=== PATIENT | female | born 1930 | race Caucasian/White ===

== ENCOUNTER 2016-02-25 12:25 | Emergency (ER) | payer MEDICARE ==
--- NOTE | 2016-02-25 13:39 | ER Document Report ---
ED GI Bleed / Rectal Pain - General Mode of Arrival: Ambulatory Information source: Patient TRAVEL OUTSIDE OF THE [place] IN LAST 30 DAYS: No - HPI Patient complains to provider of: Bright red bld from rect. Onset: Just prior to arrival Quality of pain: No pain Emesis description: Bright red blood Dark Stools: Maroon Similar symptoms previously: Yes - General Chief Complaint: Rectal Bleeding Stated Complaint: RECTAL BLEEDING Notes: Patient is an 85 year old female that presents to the emergency department today with complaints of rectal bleeding. According to the patient's son at bedside, the patient had a fall today while at "[employer]" and they noticed bright red blood on her shorts. Patient has had hemorrhoids in the past. Patient denies any dizziness or lightheadedness. (ROSAURA STRONG) - Related Data Allergies/Adverse Reactions: No Known Allergies Allergy (Unverified 05/24/12 22:11) Past Medical History - General Information source: Patient, [facility] Records Cannot obtain history due to: Dementia - Social History Smoking Status: Unknown if Ever Smoked Cigarette use (# per day): No Frequency of alcohol use: None Drug Abuse: None Lives with: Family Family History: Reviewed & Not Pertinent - Past Medical History Cardiac Medical History: Reports: Hx Hypercholesterolemia Musculoskeltal Medical History: Reports Hx Arthritis Psychiatric Medical History: Reports: Hx Depression Past Surgical History: Reports: Hx Orthopedic Surgery - Immunizations Hx Pneumococcal Vaccination: 02/15/11 Review of Systems - Review of Systems Constitutional: See HPI, Other - fall EENT: No symptoms reported Cardiovascular: No symptoms reported Respiratory: No symptoms reported Gastrointestinal: See HPI, Rectal bleeding Genitourinary: No symptoms reported Female Genitourinary: No symptoms reported Musculoskeletal: No symptoms reported Skin: No symptoms reported Hematologic/Lymphatic: No symptoms reported Neurological/Psychological: No symptoms reported -: Yes All other systems reviewed and negative Physical Exam - General General appearance: Appears well, Alert In distress: None - HEENT Head: Normocephalic, Atraumatic Eyes: Normal Conjunctiva: Normal Extraocular movements intact: Yes - Respiratory Respiratory status: No respiratory distress Chest status: Nontender Breath sounds: Normal - Cardiovascular Rhythm: Regular Heart sounds: Normal auscultation - Abdominal Inspection: Normal Distension: No distension - Rectal Tenderness: No Stool: Other - soft brown stool Hemorrhoids: Internal, External - with dried blood - Back Back: Normal, Nontender - Extremities General upper extremity: Normal inspection, Nontender. No: Edema General lower extremity: Normal inspection, Nontender. No: Edema - Neurological Neuro grossly intact: Yes Cognition: Other - pleasantly demented Speech: Normal - Skin Skin Temperature: Warm Skin Moisture: Dry Skin Color: Normal - Vital signs Vitals: Temp Pulse Resp BP Pulse Ox 98.4 F 110 H 20 114/62 94 02/25/16 13:00 02/25/16 13:00 02/25/16 13:00 02/25/16 13:00 02/25/16 13:00 (MEGAN SOTO) (ROSAURA STRONG) Course - Re-evaluation Re-evalutation: 02/25/16 13:42 The patient's son reports he works at the hospital in [place], and knows Dr. Kolb quite well and would prefer to follow up with him for the hemorrhoid. (MEGAN SOTO) - Vital Signs Vital signs: Temp Pulse Resp BP Pulse Ox 98.6 F 73 20 130/77 H 92 02/25/16 14:05 02/25/16 14:05 02/25/16 14:05 02/25/16 14:05 02/25/16 14:05 (MEGAN SOTO) (ROSAURA STRONG) Scribe Documentation - Scribe acting as scribe for :: Nawaf - Scribe Written by Scribe:: ROSAURA STRONG, LAITH 02/25/16 1215 (ROSAURA STRONG)
[2016-02-25 14:22] VITALS: BP 130/77
== END 2016-02-25 14:06 | disposition home or self-care (01) ==
LOC: ER 12:25
DX: S40.811A Abrasion of right upper arm, initial encounter (principal); W19.XXXA Unspecified fall, initial encounter; Y92.210 Daycare center as the place of occurrence of the external cause; K64.8 Other hemorrhoids; K64.4 Residual hemorrhoidal skin tags
CPT/HCPCS: 99283

== ENCOUNTER 2016-05-31 14:21 | Inpatient (IN) | payer MEDICARE ==
--- NOTE | 2016-05-31 14:39 | ER Document Report ---
ED Fall - General Chief Complaint: Fall Stated Complaint: FALL/HEAD PAIN Mode of Arrival: Medic Information source: Patient, Emergency Med Personnel Cannot obtain history due to: Dementia TRAVEL OUTSIDE OF THE [place] IN LAST 30 DAYS: No - HPI Occurred: Just prior to arrival Where: Other - UNCERTAIN Context: Fell from standing Associated symptoms: Dazed/confused - CONFUSION PROB. BASELINE. denies: Became dizzy/fainted Location of injury/pain: Head Severity: Mild Notes: Patient has history of dementia, therefore validity of her history is questionable. 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 - Related data Allergies/Adverse Reactions: No Known Allergies Allergy (Unverified 05/24/12 22:11) Past Medical History - General Information source: Patient, [facility] Records - Social History Smoking Status: Never Smoker Chew tobacco use (# tins/day): No Frequency of alcohol use: None Drug Abuse: None Lives with: Family Family History: Reviewed & Not Pertinent Patient has suicidal ideation: No Patient has homicidal ideation: No - Past Medical History Cardiac Medical History: Reports: Hx Hypercholesterolemia Denies: Hx Heart Attack, Hx Hypertension Pulmonary Medical History: Denies: Hx Asthma Neurological Medical History: Denies: Hx Cerebrovascular Accident, Hx Seizures GI Medical History: Denies: Hx Hepatitis, Hx Hiatal Hernia, Hx Ulcer Musculoskeltal Medical History: Reports Hx Arthritis Psychiatric Medical History: Reports: Hx Depression Infectious Medical History: Denies: Hx Hepatitis Past Surgical History: Reports: Hx Orthopedic Surgery. Denies: Hx Hysterectomy , Hx Mastectomy, Hx Open Heart Surgery, Hx Pacemaker - Immunizations Hx Pneumococcal Vaccination: 02/15/11 Review of Systems - Review of Systems Constitutional: No symptoms reported EENT: See HPI Cardiovascular: No symptoms reported Respiratory: No symptoms reported Gastrointestinal: No symptoms reported Female Genitourinary: Post menopausal Musculoskeletal: Other - R. THIGH DISCOMFORT Skin: No symptoms reported Neurological/Psychological: No symptoms reported Physical Exam - Vital signs Vitals: Temp Pulse Resp BP Pulse Ox 97.9 F 90 18 138/80 H 100 05/31/16 14:31 05/31/16 14:31 05/31/16 14:31 05/31/16 14:31 05/31/16 14:31 Interpretation: Normal - General General appearance: Appears well, Alert In distress: None - HEENT Head: Open wounds - R. PARIETAL SCALP LAC. (SEE GRAPHIC) Extraocular movements intact: Yes Ears: Normal Nasal: Normal Mouth/Lips: Normal Mucous membranes: Normal Pharynx: Normal Neck: Normal, Supple, Other - NO POSTERIOR TENDERNESS - Respiratory Respiratory status: No respiratory distress Breath sounds: Normal - Cardiovascular Rhythm: Regular Heart sounds: Normal auscultation Murmur: No - Abdominal Inspection: Normal Distension: No distension - Extremities General upper extremity: Normal inspection General lower extremity: Normal inspection - Neurological Neuro grossly intact: Yes Cognition: Confused Orientation: Disoriented to events - Psychological Associated symptoms: Normal affect, Normal mood - Skin Skin Temperature: Warm Skin Moisture: Dry Skin Color: Normal Skin Turgor: Elastic Skin irregularity: Laceration - SEE GRAPHIC Course - Re-evaluation Re-evalutation: 05/31/16 19:36 Diagnosis and possible treatment options were discussed at length with patient and patient's son, with other family members in attendance. Unfortunately, orthopedic surgery services are not available front desk monitor at [facility] today or tomorrow, therefore, if she were admitted here, surgical repair would be delayed. It was explained to patient and family that delayed repair would negatively impact the patient's postop recovery and rehabilitation. The option of seeking transfer to a different facility where the repair could be performed more quickly was discussed. Patient's family opts for admission here, understanding that the patient's prognosis and recovery potential is poor at best. - Vital Signs Vital signs: Temp Pulse Resp BP Pulse Ox 97.9 F 90 18 138/80 H 100 05/31/16 14:31 05/31/16 14:31 05/31/16 14:31 05/31/16 14:31 05/31/16 14:31 - Consults DR. CURIEL Consulted provider: will come to ER Procedures - Laceration/Wound Repair Right Head Time completed: 17:56 Wound length (cm): 2.2 Wound's Depth, Shape: Superficial Laceration pre-procedure: Sterile PPE donned Anesthetic type: 1% Lidocaine w/epi Volume Anesthetic (mLs): 2 Wound explored: Clean, No foreign body removed Irrigated w/ Saline (mLs): 30 Wound Debrided: Minimal Wound Repaired With: Elrod Number of Sutures: 2 Layer Closure?: No Post-procedure wound care: Sterile dressing applied Post-procedure NV exam normal: Yes - UNCHANGED FROM PREVIOUS Complications: No Adult Head Front/Back picture: 1 - 2.2 cm LAC, STAPLED Discharge - Discharge Clinical Impression: Fall at intermediate Qualifiers: Encounter type: initial encounter Qualified Code(s): W19.XXXA - Unspecified fall, initial encounter Scalp laceration Qualifiers: Encounter type: initial encounter Qualified Code(s): S01.01XA - Laceration without foreign body of scalp, initial encounter Hip fracture Qualifiers: Encounter type: initial encounter Fracture type: closed Laterality: right Qualified Code(s): S72.001A - Fracture of unspecified part of neck of right femur, initial encounter for closed fracture Condition: Stable Disposition: ADMITTED INPATIENT Admitting Provider: Hospitalist Unit Admitted: Telemetry
[2016-05-31] MEDS ORDERED: DIPH/PERTUSS(ACELL)/TETANUS VAC/PF 0.5 ML SYR (>=10YO) IM ONE (14:41)
[2016-05-31] MEDS ORDERED: LIDOCAINE 1%/EPINEPHRINE INJ 20 ML VIAL INJ ONE (14:43)
[2016-05-31] MEDS ORDERED: ACETAMINOPHEN 325 MG TABLET PO ONE (15:55)
[2016-05-31] MEDS ORDERED: IPRATROPIUM/ALBUTEROL 0.5-2.5 MG/3 ML AMPUL NEB PRN (19:53)
[2016-05-31] MEDS ORDERED: MAGNESIUM HYDROXIDE SUSP 30 ML UDCUP PO PRN (19:53)
[2016-05-31] MEDS ORDERED: ONDANSETRON HCL INJ/PF 4 MG/2 ML SDV IV PRN (19:53)
[2016-05-31] MEDS ORDERED: ACETAMINOPHEN 325 MG TABLET PO PRN (19:53)
[2016-05-31] MEDS ORDERED: MAG HYDROX/AL HYDROX/SIMETH SUSP 30 ML UDCUP PO PRN (19:53)
[2016-05-31 20:39] LABS: AMORPHOUS SEDIMENT,URINE TRACE /HPF; APPEARANCE,URINE SLIGHTLY-CLOUDY; BILIRUBIN,URINE NEGATIVE (NEGATIVE); GLUCOSE, URINE NEGATIVE (NEGATIVE); KETONES,URINE NEGATIVE (NEGATIVE); LEUKOCYTE ESTERASE,URINE SMALL (NEGATIVE); NITRITE,URINE POSITIVE (NEGATIVE); PROTEIN,URINE NEGATIVE (NEGATIVE); URINE SPECIFIC GRAVITY 1.012; UROBILINOGEN,URINE NEGATIVE mg/dL (<2.0)
[2016-05-31 21:01] LABS: ABSOLUTE LYMPHOCYTES (AUTO) 0.7 10^3/uL (0.5-4.7); ABSOLUTE MONOCYTES (AUTO) 0.8 10^3/uL (0.1-1.4); ABSOLUTE NEUT (AUTO) 12.5 10^3/uL (1.7-8.2); BASOPHILS % (AUTO) 0.1 % (0-2); HEMATOCRIT 39.7 % (36.0-47.0); HEMOGLOBIN 13.2 g/dL (12.0-15.5); HGB HCT DIFFERENCE -0.1; LYMPHOCYTES % (AUTO) 5.2 % (13-45); MEAN CORPUSCULAR HEMOGLOBIN 30.1 pg (27.0-33.4); MEAN CORPUSCULAR HGB CONC 33.3 g/dL (32.0-36.0); MEAN CORPUSCULAR VOLUME 90 fl (80-97); MONOCYTES % (AUTO) 5.9 % (3-13); RED CELL DISTRIBUTION WIDTH 13.4 % (11.5-14.0); SEGMENTED NEUTROPHILS % (AUTO) 88.8 % (42-78)
[2016-05-31 21:17] LABS: ALANINE AMINOTRANSFERASE 32 U/L (9-52); ALBUMIN 3.8 g/dL (3.5-5.0); ALKALINE PHOSPHATASE 95 U/L (38-126); ANION GAP 12 (5-19); ASPARTATE AMINO TRANSFERASE 30 U/L (14-36); BLOOD UREA NITROGEN 16 mg/dL (7-20); CALCIUM 8.9 mg/dL (8.4-10.2); CARBON DIOXIDE 22 mmol/L (22-30); CHLORIDE 107 mmol/L (98-107); CREATININE RESULT 0.64 mg/dL (0.52-1.25); GLUCOSE 119 mg/dL (75-110); POTASSIUM 3.8 mmol/L (3.6-5.0); SODIUM 141.1 mmol/L (137-145); TOTAL PROTEIN 6.4 g/dL (6.3-8.2)
[2016-05-31 21:36] LABS: CREATINE KINASE MB 2.2 ng/mL (<4.55); TROPONIN I 0.013 ng/mL
[2016-05-31] MEDS ORDERED: RISPERIDONE 0.5 MG TAB.RAPDIS PO ONE (23:56)
[2016-06-01] MEDS: ATORVASTATIN CALCIUM 40 MG TABLET PO SCH (01:55)
[2016-06-01 03:37] LABS: ABSOLUTE LYMPHOCYTES (AUTO) 1.5 10^3/uL (0.5-4.7); ABSOLUTE MONOCYTES (AUTO) 1.1 10^3/uL (0.1-1.4); ABSOLUTE NEUT (AUTO) 9.3 10^3/uL (1.7-8.2); BASOPHILS % (AUTO) 0.2 % (0-2); EOSINOPHILS % (AUTO) 0.2 % (0-6); HEMATOCRIT 37.4 % (36.0-47.0); HEMOGLOBIN 12.8 g/dL (12.0-15.5); LYMPHOCYTES % (AUTO) 12.7 % (13-45); MEAN CORPUSCULAR HEMOGLOBIN 30.7 pg (27.0-33.4); MEAN CORPUSCULAR HGB CONC 34.2 g/dL (32.0-36.0); MEAN CORPUSCULAR VOLUME 90 fl (80-97); MONOCYTES % (AUTO) 8.9 % (3-13); RED BLOOD COUNT 4.17 10^6/uL (3.72-5.28); RED CELL DISTRIBUTION WIDTH 13.3 % (11.5-14.0)
[2016-06-01] MEDS: HEPARIN SOD (PORCINE) 5,000 UNIT/ML 1 ML SYRINGE SUBCUT SCH ×3 (03:50→14:29)
[2016-06-01 04:03] LABS: ANION GAP 11 (5-19); BLOOD UREA NITROGEN 16 mg/dL (7-20); CALCIUM 8.8 mg/dL (8.4-10.2); CARBON DIOXIDE 24 mmol/L (22-30); CHLORIDE 107 mmol/L (98-107); CREATINE KINASE 283 U/L (30-135); CREATININE RESULT 0.73 mg/dL (0.52-1.25); GLUCOSE 116 mg/dL (75-110); POTASSIUM 3.7 mmol/L (3.6-5.0); SODIUM 142.2 mmol/L (137-145)
[2016-06-01 04:15] LABS: CREATINE KINASE MB 2.94 ng/mL (<4.55)
[2016-06-01 04:17] LABS: TROPONIN I < 0.012 ng/mL
--- NOTE | 2016-06-01 05:26 | PDOC H&P ---
History of Present Illness Admission Date/PCP: 05/31/16 20:02 RONAN KELLY MD Patient complains of: Right-sided hip pain History of Present Illness: MARIAM THEODORE is a 85 year old female with a past medical history of hypertension, dementia and gait disorder requiring a walker. She is a long- term senior living resident found by senior living staff to be on the floor with a laceration to her posterior right scalp and pain to her right hip. No evidence for loss of consciousness or seizure or other injury she is not known to take any new medications. Her son is at bedside name to provide some history stating she falls at least once a month as she is unable to recall the need for a walker. Patient is awake alert oriented 1 in no acute distress. In the emergency room found to have a 1 x 2 cm laceration to the right scalp which has been stapled, she is also found to have a right-sided hip fracture and referred to the hospitalist for admission. Patient's son is aware of the fact that the facility does not have orthopedic surgery services until June 03 and declines transfer to tertiary care. Past Medical History Cardiac Medical History: Reports: Hyperlipidema Denies: Myocardial Infarction, Hypertension Pulmonary Medical History: Denies: Asthma Neurological Medical History: Denies: Seizures GI Medical History: Denies: Hepatitis, Hiatal Hernia Musculoskeltal Medical History: Reports: Arthritis Psychiatric Medical History: Reports: Depression - anxiety Hematology: Denies: Anemia, Sickle Cell Disease Past Surgical History Past Surgical History: Reports: Orthopedic Surgery Denies: Amputation, Hysterectomy, Mastectomy, Pacemaker Social History Information Source: Relative, [facility] Records Lives with: Family Smoking Status: Never Smoker Drugs: None - Advance Directive Resuscitation Status: Full Code Family History Family History: Hypertension Parental Family History Reviewed: Yes Children Family History Reviewed: Yes Sibling(s) Family History Reviewed.: Yes Medication/Allergy Home Medications: Acetaminophen [Tylenol 325 mg Tablet] 325 mg PO Q4HP PRN 06/01/16 Alendronate Sodium [Alendronate Sodium] 70 mg PO Q7D 06/01/16 Aspirin [Aspirin 81 mg Chewable Tablet] 1 tab PO DAILY 06/01/16 Calcium Carbonate/Vitamin D3 [Calcium 600 + Vit D Tablet] 1 tab PO DAILY Guaifenesin [Guaifenesin] 2 tsp PO Q4H PRN MDD 6 per 24 hours 06/01/16 Hydrocortisone Acetate [Proctocort] 30 mg WA BID PRN 06/01/16 Loperamide HCl [Imodium A-D] 2 tab PO ASDIR PRN MDD 4 doses per 24 hours Melatonin/Pyridoxine HCl (B6) [Melatonin 5 mg Tablet] 1 each PO QHS 06/01/16 Memantine HCl [Namenda Xr] 1 cap PO DAILY 06/01/16 Mirtazapine [Mirtazapine] 15 mg PO QHS 06/01/16 Multivits-Min/Iron/FA/Lutein [Centrum Silver Women Tablet] 1 tab PO DAILY Quetiapine Fumarate [Quetiapine Fumarate] 1 tab PO QAM 06/01/16 Quetiapine Fumarate [Quetiapine Fumarate] 1 tab PO QHS 06/01/16 Allergies/Adverse Reactions: No Known Allergies Allergy (Unverified 05/24/12 22:11) Review of Systems ROS unobtainable: Due to mental status Physical Exam Vital Signs: Temp Pulse Resp BP Pulse Ox 97.2 F 107 H 16 163/81 H 94 06/01/16 04:08 06/01/16 04:08 06/01/16 04:08 06/01/16 04:08 06/01/16 04:08 Intake & Output 05/30/16 05/31/16 06/01/16 11:59 11:59 11:59 Intake Total 300 Output Total 700 Balance -400 General appearance: PRESENT: no acute distress, cooperative Head exam: PRESENT: other - 1 x 2 cm laceration with stapling closure to the right occipital area Eye exam: PRESENT: conjunctiva pink, EOMI, PERRLA. ABSENT: scleral icterus Ear exam: PRESENT: normal external ear exam Mouth exam: PRESENT: moist, tongue midline Neck exam: ABSENT: carotid bruit, JVD, lymphadenopathy, thyromegaly Respiratory exam: PRESENT: clear to auscultation stanley. ABSENT: rales, rhonchi, wheezes Cardiovascular exam: PRESENT: RRR. ABSENT: diastolic murmur, rubs, systolic murmur Pulses: PRESENT: normal dorsalis pedis pul Vascular exam: PRESENT: normal capillary refill GI/Abdominal exam: PRESENT: normal bowel sounds, soft. ABSENT: distended, guarding, mass, organolmegaly, rebound, tenderness Rectal exam: PRESENT: deferred Gentrourinary exam: PRESENT: other Extremities exam: PRESENT: tenderness. ABSENT: calf tenderness, clubbing, full ROM, pedal edema, +1 edema, +2 edema Musculoskeletal exam: PRESENT: deformity. ABSENT: full ROM Neurological exam: PRESENT: alert, awake, oriented to person, CN II-XII grossly intact Psychiatric exam: PRESENT: appropriate affect, normal mood. ABSENT: homicidal ideation, suicidal ideation Skin exam: PRESENT: dry, intact, warm. ABSENT: cyanosis, rash Results Laboratory Results: 06/01/16 03:11 06/01/16 03:11 05/31/16 05/31/16 06/01/16 20:40 20:40 03:11 WBC 14.0 H 12.0 H RBC 4.40 4.17 Hgb 13.2 12.8 Hct 39.7 37.4 MCV 90 90 MCH 30.1 30.7 MCHC 33.3 34.2 RDW 13.4 13.3 Plt Count 237 221 Seg Neutrophils % 88.8 H 78.0 Lymphocytes % 5.2 L 12.7 L Monocytes % 5.9 8.9 Eosinophils % 0.0 0.2 Basophils % 0.1 0.2 Absolute Neutrophils 12.5 H 9.3 H Absolute Lymphocytes 0.7 1.5 Absolute Monocytes 0.8 1.1 Absolute Eosinophils 0.0 0.0 Absolute Basophils 0.0 0.0 Sodium 141.1 Potassium 3.8 Chloride 107 Carbon Dioxide 22 Anion Gap 12 BUN 16 Creatinine 0.64 Est GFR ( Amer) > 60 Est GFR (Non-Af Amer) > 60 Glucose 119 H Calcium 8.9 Total Bilirubin 1.0 AST 30 ALT 32 Alkaline Phosphatase 95 Total Protein 6.4 Albumin 3.8 06/01/16 03:11 WBC RBC Hgb Hct MCV MCH MCHC RDW Plt Count Seg Neutrophils % Lymphocytes % Monocytes % Eosinophils % Basophils % Absolute Neutrophils Absolute Lymphocytes Absolute Monocytes Absolute Eosinophils Absolute Basophils Sodium 142.2 Potassium 3.7 Chloride 107 Carbon Dioxide 24 Anion Gap 11 BUN 16 Creatinine 0.73 Est GFR ( Amer) > 60 Est GFR (Non-Af Amer) > 60 Glucose 116 H Calcium 8.8 Total Bilirubin AST ALT Alkaline Phosphatase Total Protein Albumin 05/31/16 05/31/16 06/01/16 20:40 20:40 03:11 Creatine Kinase 222 H CK-MB (CK-2) 2.20 2.94 Troponin I 0.013 < 0.012 06/01/16 03:11 Creatine Kinase 283 H CK-MB (CK-2) Troponin I Impressions: Cervical Spine CT 05/31/16 14:40 IMPRESSION: CHRONIC DEGENERATIVE CHANGES. NO ACUTE FINDINGS. Head CT 05/31/16 14:40 IMPRESSION: CHRONIC CHANGES OF ATROPHY AND MICROVASCULAR ISCHEMIA. NO ACUTE PROCESS. Hip/Pelvis X-Ray 05/31/16 18:02 IMPRESSION: Acute intertrochanteric fracture of the right femur. Chest X-Ray 05/31/16 18:20 IMPRESSION: NO ACUTE RADIOGRAPHIC FINDING IN THE CHEST. Assessment & Plan - Diagnosis (1) Hip fracture Qualifiers: Encounter type: initial encounter Fracture type: closed Laterality : right Qualified Code(s): S72.001A - Fracture of unspecified part of neck of right femur, initial encounter for closed fracture Is this a current diagnosis for this admission?: YesPlan: Patient sustaining a mechanical fall with baseline gait disorder and dementia. No history of underlying decompensated cardiopulmonary disease delaying surgery. Orthopedic consult pending continue symptomatically management (2) Hypertension Is this a current diagnosis for this admission?: YesPlan: Continue home regiment with when necessary MACKENZIE inhibitor (3) Dementia Is this a current diagnosis for this admission?: YesPlan: Patient unlikely to benefit from physical therapy patient is also known to have sundowning and will continue her home regiment with when necessary benzodiazepine (4) Leukocytosis Is this a current diagnosis for this admission?: YesPlan: Likely a stress response to fall and injury no evidence of occult infection reevaluation with CBC ordered (5) Scalp laceration Qualifiers: Encounter type: initial encounter Qualified Code(s): S01.01XA - Laceration without foreign body of scalp, initial encounter Is this a current diagnosis for this admission?: YesPlan: No evidence of foreign body or complication reevaluation in 7-10 days - Time Time Spent: 50 to 70 Minutes - Inpatient Certification Medical Necessity: Need Close Monitoring Due to Risk of Patient Decompensation
[2016-06-01] MEDS: DOCUSATE SODIUM 100 MG CAPSULE PO SCH ×2 (11:37→17:06)
[2016-06-01 11:42] LABS: CREATINE KINASE MB 4.02 ng/mL (<4.55); TROPONIN I 0.015 ng/mL
--- NOTE | 2016-06-01 13:29 | PDOC PROGRESS REPORT ---
Subjective Progress Note for:: 06/01/16 Subjective:: He is confused but denies any complaints or pain. Physical Exam Vital Signs: Temp Pulse Resp BP Pulse Ox 97.6 F 104 H 16 161/89 H 94 06/01/16 08:00 06/01/16 09:01 06/01/16 09:01 06/01/16 08:00 06/01/16 09:01 Intake & Output 05/31/16 06/01/16 06/02/16 06:59 06:59 06:59 Intake Total 406 200 Output Total 1200 0 Balance -794 200 Weight 50.8 kg 50.8 kg General appearance: PRESENT: no acute distress Eye exam: PRESENT: conjunctiva pink. ABSENT: scleral icterus Mouth exam: PRESENT: moist, tongue midline Neck exam: ABSENT: JVD Respiratory exam: PRESENT: clear to auscultation stanley. ABSENT: rales, rhonchi, wheezes Cardiovascular exam: PRESENT: RRR. ABSENT: diastolic murmur, rubs, systolic murmur GI/Abdominal exam: PRESENT: normal bowel sounds, soft. ABSENT: distended, guarding, mass, organolmegaly, rebound, tenderness Extremities exam: ABSENT: calf tenderness, clubbing, pedal edema Neurological exam: PRESENT: alert, awake, oriented to person, oriented to place. ABSENT: oriented to time, oriented to situation Psychiatric exam: PRESENT: appropriate affect Results Laboratory Results: 06/01/16 03:11 06/01/16 03:11 05/31/16 05/31/16 06/01/16 20:40 20:40 03:11 WBC 14.0 H 12.0 H RBC 4.40 4.17 Hgb 13.2 12.8 Hct 39.7 37.4 MCV 90 90 MCH 30.1 30.7 MCHC 33.3 34.2 RDW 13.4 13.3 Plt Count 237 221 Seg Neutrophils % 88.8 H 78.0 Lymphocytes % 5.2 L 12.7 L Monocytes % 5.9 8.9 Eosinophils % 0.0 0.2 Basophils % 0.1 0.2 Absolute Neutrophils 12.5 H 9.3 H Absolute Lymphocytes 0.7 1.5 Absolute Monocytes 0.8 1.1 Absolute Eosinophils 0.0 0.0 Absolute Basophils 0.0 0.0 Sodium 141.1 Potassium 3.8 Chloride 107 Carbon Dioxide 22 Anion Gap 12 BUN 16 Creatinine 0.64 Est GFR ( Amer) > 60 Est GFR (Non-Af Amer) > 60 Glucose 119 H Calcium 8.9 Total Bilirubin 1.0 AST 30 ALT 32 Alkaline Phosphatase 95 Total Protein 6.4 Albumin 3.8 06/01/16 03:11 WBC RBC Hgb Hct MCV MCH MCHC RDW Plt Count Seg Neutrophils % Lymphocytes % Monocytes % Eosinophils % Basophils % Absolute Neutrophils Absolute Lymphocytes Absolute Monocytes Absolute Eosinophils Absolute Basophils Sodium 142.2 Potassium 3.7 Chloride 107 Carbon Dioxide 24 Anion Gap 11 BUN 16 Creatinine 0.73 Est GFR ( Amer) > 60 Est GFR (Non-Af Amer) > 60 Glucose 116 H Calcium 8.8 Total Bilirubin AST ALT Alkaline Phosphatase Total Protein Albumin 05/31/16 05/31/16 06/01/16 20:40 20:40 03:11 Creatine Kinase 222 H CK-MB (CK-2) 2.20 2.94 Troponin I 0.013 < 0.012 06/01/16 06/01/16 06/01/16 03:11 09:48 09:48 Creatine Kinase 283 H 410 H CK-MB (CK-2) 4.02 Troponin I 0.015 Impressions: Cervical Spine CT 05/31/16 14:40 IMPRESSION: CHRONIC DEGENERATIVE CHANGES. NO ACUTE FINDINGS. Head CT 05/31/16 14:40 IMPRESSION: CHRONIC CHANGES OF ATROPHY AND MICROVASCULAR ISCHEMIA. NO ACUTE PROCESS. Hip/Pelvis X-Ray 05/31/16 18:02 IMPRESSION: Acute intertrochanteric fracture of the right femur. Chest X-Ray 05/31/16 18:20 IMPRESSION: NO ACUTE RADIOGRAPHIC FINDING IN THE CHEST. Assessment & Plan - Diagnosis (1) Hip fracture Qualifiers: Encounter type: initial encounter Fracture type: closed Laterality : right Qualified Code(s): S72.001A - Fracture of unspecified part of neck of right femur, initial encounter for closed fracture Is this a current diagnosis for this admission?: YesPlan: Patient will have surgical repair with orthopedics is available. (2) Dementia Is this a current diagnosis for this admission?: YesPlan: Patient is pleasantly demented. (3) Hypertension Is this a current diagnosis for this admission?: YesPlan: Patient's blood pressure is elevated today we will continue to monitor and if it remains elevated restart her blood pressure medications (4) Leukocytosis Is this a current diagnosis for this admission?: YesPlan: Most likely stress reaction. Patient has no evidence for infection. (5) Scalp laceration Qualifiers: Encounter type: initial encounter Qualified Code(s): S01.01XA - Laceration without foreign body of scalp, initial encounter Is this a current diagnosis for this admission?: Yes - Time Time Spent with patient: 25-34 minutes - Inpatient Certification Medical Necessity: Need for Surgery - Plan Summary Plan Summary: Orthopedic surgery is currently not available at this facility. Patient will to have hip surgery when surgery is available.
[2016-06-01] MEDS: SERTRALINE HCL 50 MG TABLET PO SCH ×2 (16:37→17:06)
[2016-06-01] MEDS: BUSPIRONE HCL 10 MG TABLET PO SCH ×2 (16:37→17:06)
[2016-06-02] MEDS: ATORVASTATIN CALCIUM 40 MG TABLET PO SCH ×2 (00:01→22:34)
[2016-06-02] MEDS: HEPARIN SOD (PORCINE) 5,000 UNIT/ML 1 ML SYRINGE SUBCUT SCH ×4 (00:01→22:34)
[2016-06-02 05:37] LABS: ANION GAP 12 (5-19); BLOOD UREA NITROGEN 16 mg/dL (7-20); CALCIUM 8.6 mg/dL (8.4-10.2); CARBON DIOXIDE 21 mmol/L (22-30); CHLORIDE 106 mmol/L (98-107); CREATININE RESULT 0.68 mg/dL (0.52-1.25); GLUCOSE 125 mg/dL (75-110); POTASSIUM 3.8 mmol/L (3.6-5.0); SODIUM 138.9 mmol/L (137-145)
[2016-06-02 06:41] LABS: ABSOLUTE LYMPHOCYTES (AUTO) 1.2 10^3/uL (0.5-4.7); ABSOLUTE NEUT (AUTO) 12.7 10^3/uL (1.7-8.2); BASOPHILS % (AUTO) 0.1 % (0-2); HEMATOCRIT 38.3 % (36.0-47.0); HEMOGLOBIN 12.8 g/dL (12.0-15.5); HGB HCT DIFFERENCE 0.1; LYMPHOCYTES % (AUTO) 8.4 % (13-45); MEAN CORPUSCULAR HEMOGLOBIN 30.2 pg (27.0-33.4); MEAN CORPUSCULAR HGB CONC 33.5 g/dL (32.0-36.0); MEAN CORPUSCULAR VOLUME 90 fl (80-97); MONOCYTES % (AUTO) 6.4 % (3-13); RED BLOOD COUNT 4.24 10^6/uL (3.72-5.28); RED CELL DISTRIBUTION WIDTH 13.4 % (11.5-14.0); SEGMENTED NEUTROPHILS % (AUTO) 85.1 % (42-78); WHITE BLOOD COUNT 14.9 10^3/uL (4.0-10.5)
[2016-06-02] MEDS: SERTRALINE HCL 50 MG TABLET PO SCH ×2 (10:41→18:24)
[2016-06-02] MEDS: DOCUSATE SODIUM 100 MG CAPSULE PO SCH ×2 (10:42→18:25)
[2016-06-02] MEDS: BUSPIRONE HCL 10 MG TABLET PO SCH ×2 (10:42→18:25)
[2016-06-02] MEDS ORDERED: HYDRALAZINE HCL INJ/PF 20 MG/1 ML SDV IV PRN (11:21)
--- NOTE | 2016-06-02 11:22 | PDOC PROGRESS REPORT ---
Subjective Progress Note for:: 06/02/16 Subjective:: Patient has no complaints of pain. When I specifically asked she denies pain. She denies chest pain or shortness of breath. Review of systems and history are limited by advanced dementia. Physical Exam Vital Signs: Temp Pulse Resp BP Pulse Ox 98 F 96 17 114/69 92 06/02/16 00:00 06/02/16 00:00 06/02/16 00:00 06/02/16 08:00 06/02/16 00:00 Intake & Output 06/01/16 06/02/16 06/03/16 06:59 06:59 06:59 Intake Total 406 822 Output Total 1200 700 Balance -794 122 Weight 50.8 kg 50.8 kg GENERAL: No acute distress HEENT: Conjunctiva clear, nonicteric, moist mucous membranes, no JVD, midline trachea RESPIRATORY: Clear to auscultation bilaterally, no wheezes, no rhonchi CARDIAC: Regular rate and rhythm, no murmurs/gallops/rubs ABDOMEN: Soft, nondistended, nontender, positive bowel sounds, no rebound, no guarding EXTREMETIES: No edema, cyanosis, clubbing NEUROLOGIC: Alert, oriented to person only, CN's grossly intact, no focal deficits SKIN: No rash, wounds PSYCH: Normal mood, normal affect Results Laboratory Results: 06/02/16 04:14 06/02/16 04:14 06/02/16 06/02/16 04:14 04:14 WBC 14.9 H RBC 4.24 Hgb 12.8 Hct 38.3 MCV 90 MCH 30.2 MCHC 33.5 RDW 13.4 Plt Count 214 Seg Neutrophils % 85.1 H Lymphocytes % 8.4 L Monocytes % 6.4 Eosinophils % 0.0 Basophils % 0.1 Absolute Neutrophils 12.7 H Absolute Lymphocytes 1.2 Absolute Monocytes 1.0 Absolute Eosinophils 0.0 Absolute Basophils 0.0 Sodium 138.9 Potassium 3.8 Chloride 106 Carbon Dioxide 21 L Anion Gap 12 BUN 16 Creatinine 0.68 Est GFR ( Amer) > 60 Est GFR (Non-Af Amer) > 60 Glucose 125 H Calcium 8.6 05/31/16 05/31/16 06/01/16 20:40 20:40 03:11 Creatine Kinase 222 H CK-MB (CK-2) 2.20 2.94 Troponin I 0.013 < 0.012 06/01/16 06/01/16 06/01/16 03:11 09:48 09:48 Creatine Kinase 283 H 410 H CK-MB (CK-2) 4.02 Troponin I 0.015 Impressions: Cervical Spine CT 05/31/16 14:40 IMPRESSION: CHRONIC DEGENERATIVE CHANGES. NO ACUTE FINDINGS. Head CT 05/31/16 14:40 IMPRESSION: CHRONIC CHANGES OF ATROPHY AND MICROVASCULAR ISCHEMIA. NO ACUTE PROCESS. Hip/Pelvis X-Ray 05/31/16 18:02 IMPRESSION: Acute intertrochanteric fracture of the right femur. Chest X-Ray 05/31/16 18:20 IMPRESSION: NO ACUTE RADIOGRAPHIC FINDING IN THE CHEST. Assessment & Plan - Diagnosis (1) Hip fracture Qualifiers: Encounter type: initial encounter Fracture type: closed Laterality : right Qualified Code(s): S72.001A - Fracture of unspecified part of neck of right femur, initial encounter for closed fracture Is this a current diagnosis for this admission?: YesPlan: Dr. Cagle of orthopedics consultation. Check coags in EKG preoperatively. Chest x-ray shows no acute process. (2) Dementia Is this a current diagnosis for this admission?: YesPlan: Continue supportive care. Patient resides at senior living facility at baseline. (3) Hypertension Is this a current diagnosis for this admission?: YesPlan: When necessary IV hydralazine for now. (4) Scalp laceration Qualifiers: Encounter type: initial encounter Qualified Code(s): S01.01XA - Laceration without foreign body of scalp, initial encounter Is this a current diagnosis for this admission?: YesPlan: Approximated with rashel on 05/21/2016. Patient will need staple removal on . - Time Time Spent with patient: 25-34 minutes
[2016-06-02 11:43] LABS: PROTHROMBIN TIME 13.3 SEC (11.4-15.4)
[2016-06-02 11:44] LABS: PARTIAL THROMBOPLASTIN TIME 26.7 SEC (23.5-35.8)
--- NOTE | 2016-06-02 13:25 | EKG REPORT ---
SEVERITY:- NORMAL ECG - SINUS RHYTHM : Confirmed by: Moriah Helm MD 02-Jun-2016 13:25:00
--- NOTE | 2016-06-02 15:32 | PDOC CONSULTATION ---
Consultation Consult Date: 06/02/16 Consult reason:: Right intertrochanteric hip fracture History of Present Illness Admission Date/PCP: 05/31/16 19:54 RONAN KELLY MD Patient complains of: Right hip pain History of Present Illness: 85-year-old female with dementia who ambulates with a rolling walker. She suffered a fall on 05/31/2016 while trying to go to the bathroom. She merely fell onto her right side and complain of right hip pain and was unable to ambulate. Patient was brought to the hospital and diagnosed with right intertrochanteric hip fracture. Patient family did not want her transferred to a tertiary center therefore patient waited 2 days before orthopedic could be consulted. During her hospital stay she had a laceration in her head which was cleaned and stapled. The dementia is baseline. She has history of small stroke. Denies any other extremity pain swelling numbness or tingling. Due to her dementia muscle information was provided by her daughter who is the power of deputy prosecuting attorney. She states she has history of a hip fracture on the left side that was fixed by Dr. Linda. Past Medical History Cardiac Medical History: Reports: Hyperlipidema Denies: Myocardial Infarction, Hypertension Pulmonary Medical History: Denies: Asthma Neurological Medical History: Denies: Seizures GI Medical History: Denies: Hepatitis, Hiatal Hernia Musculoskeltal Medical History: Reports: Arthritis Psychiatric Medical History: Reports: Depression - anxiety Hematology: Denies: Anemia, Sickle Cell Disease Past Surgical History Past Surgical History: Reports: Orthopedic Surgery - Intramedullary nailing of the left hip Fracture Denies: Amputation, Hysterectomy, Mastectomy, Pacemaker Social History Lives with: Family Smoking Status: Never Smoker Drugs: None - Advance Directive Resuscitation Status: Full Code Family History Family History: Hypertension Parental Family History Reviewed: No Children Family History Reviewed: Yes Sibling(s) Family History Reviewed.: No Medication/Allergy Home Medications: Acetaminophen [Tylenol 325 mg Tablet] 650 mg PO Q4HP PRN 06/01/16 Alendronate Sodium [Fosamax 70 mg Tablet] 70 mg PO FR@1000 06/01/16 Aspirin [Aspirin 81 mg Chewable Tablet] 81 mg PO DAILY 06/01/16 Docusate Sodium [Colace 100 mg Capsule] 100 mg PO DAILY 06/01/16 Guaifenesin [Robitussin Syrup 200 mg/10 ml Ud Cup] 200 mg PO Q4HP PRN 06/01/16 Hydrocortisone Acetate [Proctocort] 30 mg MO BIDP PRN 06/01/16 Loperamide HCl [Imodium 2 mg Capsule] 4 cap PO DAILYP PRN 06/01/16 Melatonin 5 mg PO QHS 06/01/16 Memantine HCl [Namenda Xr] 14 mg PO DAILY 06/01/16 Mirtazapine [Remeron 15 mg Tablet] 15 mg PO QHS 06/01/16 Multivitamin/Iron/Folic Acid [Cerovite Advanced Form Tab] 1 tab PO DAILY Quetiapine Fumarate [Seroquel 25 mg Tablet] 25 mg PO QAM 06/01/16 Quetiapine Fumarate [Seroquel] 50 mg PO QHS 06/01/16 Allergies/Adverse Reactions: No Known Allergies Allergy (Unverified 05/24/12 22:11) Review of Systems ROS unobtainable: Due to mental status - Patient has baseline dementia Physical Exam Vital Signs: Temp Pulse Resp BP Pulse Ox 36.4 C 105 H 16 142/72 H 93 06/02/16 11:23 06/02/16 14:17 06/02/16 14:17 06/02/16 11:23 06/02/16 14:17 Intake & Output 06/01/16 06/02/16 06/03/16 06:59 06:59 06:59 Intake Total 406 822 120 Output Total 1200 700 Balance -794 122 120 Weight 50.8 kg 50.8 kg General appearance: PRESENT: no acute distress, thin Head exam: PRESENT: other - [place] and had over laceration from fall. Eye exam: PRESENT: EOMI. ABSENT: nystagmus Neck exam: ABSENT: tenderness, thyromegaly Respiratory exam: PRESENT: symmetrical, unlabored Vascular exam: PRESENT: normal capillary refill GI/Abdominal exam: ABSENT: distended, guarding, tenderness Musculoskeletal exam: PRESENT: deformity - Short right lower extremity compared to the left side, tenderness - Over right hip and groin.. ABSENT: dislocation Neurological exam: PRESENT: awake, oriented to person. ABSENT: oriented to place, oriented to time, oriented to situation Psychiatric exam: PRESENT: appropriate affect, normal mood Skin exam: PRESENT: intact, normal color. ABSENT: abrasion, erythema, rash Adult Front & Back Image: 1 - Neurovascular intact distally. Shorten extremity. Pain with any attempted range of motion. Tender to palpation over the right greater trochanter and over the right groin. Results Laboratory Results: 06/02/16 04:14 06/02/16 04:14 06/02/16 06/02/16 04:14 04:14 WBC 14.9 H RBC 4.24 Hgb 12.8 Hct 38.3 MCV 90 MCH 30.2 MCHC 33.5 RDW 13.4 Plt Count 214 Seg Neutrophils % 85.1 H Lymphocytes % 8.4 L Monocytes % 6.4 Eosinophils % 0.0 Basophils % 0.1 Absolute Neutrophils 12.7 H Absolute Lymphocytes 1.2 Absolute Monocytes 1.0 Absolute Eosinophils 0.0 Absolute Basophils 0.0 Sodium 138.9 Potassium 3.8 Chloride 106 Carbon Dioxide 21 L Anion Gap 12 BUN 16 Creatinine 0.68 Est GFR ( Amer) > 60 Est GFR (Non-Af Amer) > 60 Glucose 125 H Calcium 8.6 05/31/16 05/31/16 06/01/16 20:40 20:40 03:11 Creatine Kinase 222 H CK-MB (CK-2) 2.20 2.94 Troponin I 0.013 < 0.012 06/01/16 06/01/16 06/01/16 03:11 09:48 09:48 Creatine Kinase 283 H 410 H CK-MB (CK-2) 4.02 Troponin I 0.015 Impressions: Cervical Spine CT 05/31/16 14:40 IMPRESSION: CHRONIC DEGENERATIVE CHANGES. NO ACUTE FINDINGS. Head CT 05/31/16 14:40 IMPRESSION: CHRONIC CHANGES OF ATROPHY AND MICROVASCULAR ISCHEMIA. NO ACUTE PROCESS. Hip/Pelvis X-Ray 05/31/16 18:02 IMPRESSION: Acute intertrochanteric fracture of the right femur. Chest X-Ray 05/31/16 18:20 IMPRESSION: NO ACUTE RADIOGRAPHIC FINDING IN THE CHEST. Assessment & Plan - Diagnosis (1) Displaced intertrochanteric fracture of right femur, initial encounter for closed fracture Qualifiers: Encounter type: subsequent encounter Fracture healing: with routine healing Qualified Code(s): S72.141D - Displaced intertrochanteric fracture of right femur, subsequent encounter for closed fracture with routine healing Is this a current diagnosis for this admission?: YesPlan: Patient is not nothing by mouth at the moment. Discussed the pros and cons of proceeding with Cephalo-medullary nailing of the right intertrochanteric hip fracture. The daughter who is the power of deputy prosecuting attorney is here present. She has undergone same procedure for the left side a few years back so she is well aware of the risk and benefits and agreed to consent to proceed with surgery. In the meantime continue pain control and bed rest. Patient will be placed nothing by mouth after midnight and start IV fluids after midnight. Patient's heparin will be held after last dose at [address] Luque who has medically cleared her. Plan to proceed with surgery tomorrow
[2016-06-02] MEDS ORDERED: DEXTROSE 5%-LACTATED RINGERS 1,000 ML IV PRN (15:45)
[2016-06-03 06:05] LABS: ABSOLUTE BASOPHILS # (AUTO) 0.1 10^3/uL (0.0-0.2); ABSOLUTE LYMPHOCYTES (AUTO) 1.6 10^3/uL (0.5-4.7); ABSOLUTE MONOCYTES (AUTO) 1.2 10^3/uL (0.1-1.4); ABSOLUTE NEUT (AUTO) 11.8 10^3/uL (1.7-8.2); BASOPHILS % (AUTO) 0.5 % (0-2); EOSINOPHILS % (AUTO) 0.3 % (0-6); HEMOGLOBIN 12.1 g/dL (12.0-15.5); HGB HCT DIFFERENCE 0.3; LYMPHOCYTES % (AUTO) 11.1 % (13-45); MEAN CORPUSCULAR HGB CONC 33.6 g/dL (32.0-36.0); MEAN CORPUSCULAR VOLUME 89 fl (80-97); MONOCYTES % (AUTO) 8.3 % (3-13); RED BLOOD COUNT 4.03 10^6/uL (3.72-5.28); RED CELL DISTRIBUTION WIDTH 13.3 % (11.5-14.0); SEGMENTED NEUTROPHILS % (AUTO) 79.8 % (42-78); WHITE BLOOD COUNT 14.8 10^3/uL (4.0-10.5)
[2016-06-03 06:25] LABS: ANION GAP 8 (5-19); BLOOD UREA NITROGEN 18 mg/dL (7-20); CALCIUM 8.7 mg/dL (8.4-10.2); CARBON DIOXIDE 26 mmol/L (22-30); CHLORIDE 105 mmol/L (98-107); CREATININE RESULT 0.61 mg/dL (0.52-1.25); GLUCOSE 112 mg/dL (75-110); POTASSIUM 3.9 mmol/L (3.6-5.0); SODIUM 139.2 mmol/L (137-145)
[2016-06-03] MEDS ORDERED: ONDANSETRON HCL INJ/PF 4 MG/2 ML SDV ONE (07:49)
[2016-06-03] MEDS ORDERED: DEXAMETHASONE SOD PHOSPHATE INJ 4 MG/1 ML VIAL ONE (07:49)
[2016-06-03] MEDS ORDERED: LIDOCAINE 2% INJ-PF (20 MG/ML) 10 ML AMPUL ONE (07:49)
[2016-06-03] MEDS: CEFTRIAXONE 1 GM/D5W RTU 1 GM/50 ML RTUPB IV SCH (09:45)
[2016-06-03] MEDS: BUSPIRONE HCL 10 MG TABLET PO SCH ×2 (09:47→23:22)
[2016-06-03] MEDS: SERTRALINE HCL 50 MG TABLET PO SCH ×2 (09:48→23:22)
[2016-06-03] MEDS: DOCUSATE SODIUM 100 MG CAPSULE PO SCH ×2 (09:48→23:22)
[2016-06-03] MEDS ORDERED: DEXTROSE 5%-LACTATED RINGERS 1,000 ML IV PRN ×2 (13:37→19:25)
--- NOTE | 2016-06-03 13:40 | PDOC PROGRESS REPORT ---
Subjective Progress Note for:: 06/03/16 Subjective:: No issues reported by nursing staff or patients daughter that said the bedside. I cannot obtain adequate history from patient secondary to end-stage dementia. Physical Exam Vital Signs: Temp Pulse Resp BP Pulse Ox 97.8 F 79 18 156/88 H 91 L 06/03/16 11:46 06/03/16 11:46 06/03/16 11:46 06/03/16 11:46 06/03/16 11:46 Intake & Output 06/02/16 06/03/16 06/04/16 06:59 06:59 06:59 Intake Total 822 512 Output Total 700 200 Balance 122 312 Weight 50.8 kg 49.2 kg GENERAL: No acute distress HEENT: Conjunctiva clear, nonicteric, moist mucous membranes, no JVD, midline trachea RESPIRATORY: Clear to auscultation bilaterally, no wheezes, no rhonchi CARDIAC: Regular rate and rhythm, no murmurs/gallops/rubs ABDOMEN: Soft, nondistended, nontender, positive bowel sounds, no rebound, no guarding EXTREMETIES: No edema, cyanosis, clubbing NEUROLOGIC: Alert, disoriented, CN's grossly intact, no focal deficits SKIN: No rash, wounds PSYCH: Normal mood, normal affect Results Laboratory Results: 06/03/16 05:15 06/03/16 05:15 06/03/16 06/03/16 05:15 05:15 WBC 14.8 H RBC 4.03 Hgb 12.1 Hct 36.0 MCV 89 MCH 30.0 MCHC 33.6 RDW 13.3 Plt Count 205 Seg Neutrophils % 79.8 H Lymphocytes % 11.1 L Monocytes % 8.3 Eosinophils % 0.3 Basophils % 0.5 Absolute Neutrophils 11.8 H Absolute Lymphocytes 1.6 Absolute Monocytes 1.2 Absolute Eosinophils 0.0 Absolute Basophils 0.1 Sodium 139.2 Potassium 3.9 Chloride 105 Carbon Dioxide 26 Anion Gap 8 BUN 18 Creatinine 0.61 Est GFR ( Amer) > 60 Est GFR (Non-Af Amer) > 60 Glucose 112 H Calcium 8.7 05/31/16 05/31/16 06/01/16 20:40 20:40 03:11 Creatine Kinase 222 H CK-MB (CK-2) 2.20 2.94 Troponin I 0.013 < 0.012 06/01/16 06/01/16 06/01/16 03:11 09:48 09:48 Creatine Kinase 283 H 410 H CK-MB (CK-2) 4.02 Troponin I 0.015 Impressions: Cervical Spine CT 05/31/16 14:40 IMPRESSION: CHRONIC DEGENERATIVE CHANGES. NO ACUTE FINDINGS. Head CT 05/31/16 14:40 IMPRESSION: CHRONIC CHANGES OF ATROPHY AND MICROVASCULAR ISCHEMIA. NO ACUTE PROCESS. Hip/Pelvis X-Ray 05/31/16 18:02 IMPRESSION: Acute intertrochanteric fracture of the right femur. Chest X-Ray 05/31/16 18:20 IMPRESSION: NO ACUTE RADIOGRAPHIC FINDING IN THE CHEST. Assessment & Plan - Diagnosis (1) Hip fracture Qualifiers: Encounter type: initial encounter Fracture type: closed Laterality : right Qualified Code(s): S72.001A - Fracture of unspecified part of neck of right femur, initial encounter for closed fracture Is this a current diagnosis for this admission?: YesPlan: Dr. Cagle of orthopedics consultation. Planning surgical fixation today. (2) Dementia Is this a current diagnosis for this admission?: YesPlan: Continue supportive care. Patient resides at residential facility at baseline. (3) Hypertension Is this a current diagnosis for this admission?: YesPlan: When necessary IV hydralazine for now. (4) Scalp laceration Qualifiers: Encounter type: initial encounter Qualified Code(s): S01.01XA - Laceration without foreign body of scalp, initial encounter Is this a current diagnosis for this admission?: YesPlan: Approximated with rashel on 05/21/2016. Patient will need staple removal on . (5) Leukocytosis Is this a current diagnosis for this admission?: YesPlan: Start IV Rocephin. Check blood culture and urine culture. Chest x-ray negative. - Time Time Spent with patient: 35 or more minutes Anticipated discharge: SNF
[2016-06-03] MEDS ORDERED: KETAMINE HCL INJ 500 MG/10 ML VIAL ONE (17:25)
[2016-06-03] MEDS ORDERED: FENTANYL CITRATE INJ/PF 100 MCG/2 ML AMPUL ONE (17:25)
[2016-06-03] MEDS ORDERED: MIDAZOLAM 2 MG/2 ML INJ ONE (17:26)
[2016-06-03] MEDS ORDERED: EPHEDRINE SULFATE INJ 50 MG/1 ML AMPULE ONE (17:26)
[2016-06-03] MEDS ORDERED: PROPOFOL INJ 200 MG/20 ML VIAL IV ONE (17:26)
[2016-06-03] MEDS ORDERED: FENTANYL CITRATE INJ/PF 100 MCG/2 ML AMPUL IV PRN ×3 (18:12)
[2016-06-03] MEDS ORDERED: DIPHENHYDRAMINE HCL 50 MG/ML VIAL IV PRN (18:12)
[2016-06-03] MEDS ORDERED: PROMETHAZINE HCL INJ 25 MG/1 ML VIAL IV PRN ×2 (18:12)
--- NOTE | 2016-06-03 18:59 | Operative Report ---
Operative Report DATE OF SURGERY: 06/03/16 PREOPERATIVE DIAGNOSIS: Right displaced intertrochanteric hip fracture POSTOPERATIVE DIAGNOSIS: Same OPERATION: Cephalo-medullary nailing of right intertrochanteric hip fracture SURGEON: CINDY ARAIZA ANESTHESIA: GA TISSUE REMOVED OR ALTERED: None COMPLICATIONS: None ESTIMATED BLOOD LOSS: 75 mL PROCEDURE: Patient was seen and evaluated in the preoperative holding area. The right lower extremity was initialized and marked. Patient received scheduled antibiotics so no need to give preoperatively. Patient was taken back to the operative room where transferred operative table. Patient was placed under spinal anesthesia. Once adequate anesthetized he was carefully placed onto the hip positioner the nonoperative lower extremity and bilateral upper extremities were carefully padded and the peroneal nerve was padded and on the nonoperative extremity. The operative extremity was placed in a traction along with adduction and internal rotation. A surgical team debriefing was performed ensuring all instrumentation was available, the surgical procedure was discussed with possible concerns reviewed. A timeout was done identifying correct patient, procedure and extremity everyone in attendance agree with this and verbalized no concerns. Reduction maneuver with the use of the hip traction table were done and C-arm fluoroscopy was used to confirm optimal reduction of the intertrochanteric fracture. Once this was confirmed the lower extremity was prepped with chlor prep and draped in a sterile fashion. At this point a small skin incision was made proximal to the greater trochanter. The guidewire was placed onto the tip of the trochanter advanced down to the level of the lesser trochanter. AP and lateral fluoroscopy was used to confirm appropriate placement of the guidewire. The skin incision was then extended and the underlying fascia opened up carefully to the tip of the greater trochanter. The entry reamer was then used and advanced to the level of the lesser trochanter. At this point Timothy short gamma nail was opened up and placed onto the aiming arm and advanced down the shaft of the femur. AP and lateral fluoroscopy was then used to confirm appropriate placement of the nail. Then turned my attention to the compression screw fixation in the femoral head. The trochars were advanced to the skin, a skin incision was made, careful dissection down to the fascia to the lateral femoral cortex was then partaken. The guidewire was then used and placed in the center center position with the tip apex distance less than 25 mm. Once this position was obtained the size of the compression screw was measured. AP and lateral fluoroscopy used to confirm appropriate placement of our guide wire. The step reamer was used to drill up through the femoral neck and head. I then carefully advanced the compression screw into position. AP and lateral fluoroscopy was done to confirm appropriate placement of the compression screw this was then locked into position proximally. The compression screw was then disengaged from its mounting device and the guidewire was removed. Lastly proceeded with locking of the nail distally. Using the aiming arm the trochars were advanced to the skin, a skin incision was made. Careful dissection done with a hemostat to the lateral cortex of the femur. I then drilled the near and far cortices. Measured the appropriate sized distal locking screw and secured it into position. At this point AP/lateral and oblique views of the proximal and distal aspect of the nail were taken confirming appropriate placement of the compression screw, distal locking screw and intramedullary nail. Once this was confirmed I proceeded with copious irrigation of the proximal and distal wounds. The deep tissues were closed with 0 Vicryl suture, subcutaneous tissues were closed with 2-0 Vicryl suture. The skin was closed with rashel. A dressing was placed. Sponge counts, instrument counts and needle counts were correct. Patient was then transferred from the operating room table to the operating room stretcher. The was no intraoperative complications patient tolerated procedure well was stable to PACU. Implants used: Timothy 11 x 180 mm 130 Short Gamma Nail with a 85 mm compression screw Postoperative plan: Patient will begin physical therapy on postop day #1
[2016-06-03] MEDS ORDERED: OXYCODONE-ACETAMINOPHEN 5-325 MG TABLET PO PRN (19:22)
[2016-06-03] MEDS: ATORVASTATIN CALCIUM 40 MG TABLET PO SCH (23:24)
[2016-06-04 06:11] LABS: ABSOLUTE LYMPHOCYTES (AUTO) 1.7 10^3/uL (0.5-4.7); ABSOLUTE MONOCYTES (AUTO) 1.1 10^3/uL (0.1-1.4); ABSOLUTE NEUT (AUTO) 10.4 10^3/uL (1.7-8.2); BASOPHILS % (AUTO) 0.1 % (0-2); EOSINOPHILS % (AUTO) 0.1 % (0-6); HEMOGLOBIN 10.7 g/dL (12.0-15.5); HGB HCT DIFFERENCE 0.1; LYMPHOCYTES % (AUTO) 12.6 % (13-45); MEAN CORPUSCULAR HEMOGLOBIN 30.2 pg (27.0-33.4); MEAN CORPUSCULAR HGB CONC 33.4 g/dL (32.0-36.0); MEAN CORPUSCULAR VOLUME 91 fl (80-97); MONOCYTES % (AUTO) 8.4 % (3-13); RED BLOOD COUNT 3.54 10^6/uL (3.72-5.28); RED CELL DISTRIBUTION WIDTH 13.4 % (11.5-14.0); SEGMENTED NEUTROPHILS % (AUTO) 78.8 % (42-78); WHITE BLOOD COUNT 13.2 10^3/uL (4.0-10.5)
[2016-06-04 06:35] LABS: ANION GAP 10 (5-19); BLOOD UREA NITROGEN 14 mg/dL (7-20); CARBON DIOXIDE 25 mmol/L (22-30); CHLORIDE 104 mmol/L (98-107); CREATININE RESULT 0.63 mg/dL (0.52-1.25); GLUCOSE 126 mg/dL (75-110); POTASSIUM 4.3 mmol/L (3.6-5.0); SODIUM 138.7 mmol/L (137-145)
[2016-06-04] MEDS: DOCUSATE SODIUM 100 MG CAPSULE PO SCH ×2 (09:26→17:58)
[2016-06-04] MEDS: SERTRALINE HCL 50 MG TABLET PO SCH ×2 (09:26→17:58)
[2016-06-04] MEDS: BUSPIRONE HCL 10 MG TABLET PO SCH ×2 (09:26→17:58)
[2016-06-04] MEDS: OXYCODONE-ACETAMINOPHEN 5-325 MG TABLET PO PRN ×2 (09:27→21:54)
[2016-06-04] MEDS: CEFTRIAXONE 1 GM/D5W RTU 1 GM/50 ML RTUPB IV SCH (09:27)
--- NOTE | 2016-06-04 10:19 | PDOC PROGRESS REPORT ---
Subjective Progress Note for:: 06/04/16 Subjective:: No issues reported by nursing staff. Patient denies pain, chest pain, shortness of breath. She states she is eating and drinking well. History is limited by advanced dementia. Physical Exam Vital Signs: Temp Pulse Resp BP Pulse Ox 98.1 F 97 16 137/71 H 94 06/04/16 08:00 06/04/16 08:00 06/04/16 08:00 06/04/16 08:00 06/04/16 08:21 Intake & Output 06/03/16 06/04/16 06/05/16 06:59 06:59 06:59 Intake Total 512 600 Output Total 200 900 Balance 312 -300 Weight 49.2 kg 49.7 kg GENERAL: No acute distress HEENT: Conjunctiva clear, nonicteric, moist mucous membranes, no JVD, midline trachea RESPIRATORY: Clear to auscultation bilaterally, no wheezes, no rhonchi CARDIAC: Regular rate and rhythm, no murmurs/gallops/rubs ABDOMEN: Soft, nondistended, nontender, positive bowel sounds, no rebound, no guarding EXTREMETIES: No edema, cyanosis, clubbing NEUROLOGIC: Alert, oriented to person only, CN's grossly intact, no focal deficits SKIN: No rash, wounds PSYCH: Flat affect Results Laboratory Results: 06/04/16 04:35 06/04/16 04:35 06/04/16 06/04/16 04:35 04:35 WBC 13.2 H RBC 3.54 L Hgb 10.7 L Hct 32.0 L MCV 91 MCH 30.2 MCHC 33.4 RDW 13.4 Plt Count 205 Seg Neutrophils % 78.8 H Lymphocytes % 12.6 L Monocytes % 8.4 Eosinophils % 0.1 Basophils % 0.1 Absolute Neutrophils 10.4 H Absolute Lymphocytes 1.7 Absolute Monocytes 1.1 Absolute Eosinophils 0.0 Absolute Basophils 0.0 Sodium 138.7 Potassium 4.3 Chloride 104 Carbon Dioxide 25 Anion Gap 10 BUN 14 Creatinine 0.63 Est GFR ( Amer) > 60 Est GFR (Non-Af Amer) > 60 Glucose 126 H Calcium 8.0 L 05/31/16 05/31/16 06/01/16 20:40 20:40 03:11 Creatine Kinase 222 H CK-MB (CK-2) 2.20 2.94 Troponin I 0.013 < 0.012 06/01/16 06/01/16 06/01/16 03:11 09:48 09:48 Creatine Kinase 283 H 410 H CK-MB (CK-2) 4.02 Troponin I 0.015 Impressions: Cervical Spine CT 05/31/16 14:40 IMPRESSION: CHRONIC DEGENERATIVE CHANGES. NO ACUTE FINDINGS. Head CT 05/31/16 14:40 IMPRESSION: CHRONIC CHANGES OF ATROPHY AND MICROVASCULAR ISCHEMIA. NO ACUTE PROCESS. Chest X-Ray 05/31/16 18:20 IMPRESSION: NO ACUTE RADIOGRAPHIC FINDING IN THE CHEST. Fluoroscopy 06/03/16 00:00 IMPRESSION: Please see combined report for performance of procedure and radiologic supervision and interpretation. Hip/Pelvis X-Ray 06/04/16 00:00 IMPRESSION: Bilateral hip hardware. Good alignment. Old healed left superior and inferior pubic ramus fractures Assessment & Plan - Diagnosis (1) Hip fracture Qualifiers: Encounter type: initial encounter Fracture type: closed Laterality : right Qualified Code(s): S72.001A - Fracture of unspecified part of neck of right femur, initial encounter for closed fracture Is this a current diagnosis for this admission?: YesPlan: Dr. Cagle of orthopedics did ORIF on 06/03/2016. Rehabilitative course per orthopedic recommendations. (2) Dementia Is this a current diagnosis for this admission?: YesPlan: Continue supportive care. Patient resides at [facility] at baseline. (3) Hypertension Is this a current diagnosis for this admission?: YesPlan: When necessary IV hydralazine for now. (4) Scalp laceration Qualifiers: Encounter type: initial encounter Qualified Code(s): S01.01XA - Laceration without foreign body of scalp, initial encounter Is this a current diagnosis for this admission?: YesPlan: Approximated with rashel on 05/21/2016. Patient will need staple removal on . (5) UTI (urinary tract infection) Is this a current diagnosis for this admission?: YesPlan: Continue IV Rocephin pending further urine culture. Urine tentatively growing gram-negative rods. (6) Acute blood loss anemia Is this a current diagnosis for this admission?: YesPlan: Continue to monitor H&H for stability. - Time Time Spent with patient: 25-34 minutes Anticipated discharge: SNF Within: within 48 hours
--- NOTE | 2016-06-04 21:17 | PDOC PROGRESS REPORT ---
Subjective Progress Note for:: 06/04/16 Subjective:: Patient resting comfortably in bed. No issues overnight Physical Exam Vital Signs: Temp Pulse Resp BP Pulse Ox 36.6 C 97 17 161/85 H 96 06/04/16 19:56 06/04/16 19:56 06/04/16 19:56 06/04/16 19:56 06/04/16 19:56 Intake & Output 06/03/16 06/04/16 06/05/16 06:59 06:59 06:59 Intake Total 512 600 360 Output Total 200 900 350 Balance 312 -300 10 Weight 49.2 kg 49.7 kg Adult Front & Back Image: 1 - Dressing with some bloody drainage. Mild ecchymosis around the incision site. Neurovascularly intact distally Results Laboratory Results: 06/04/16 04:35 06/04/16 04:35 06/04/16 06/04/16 04:35 04:35 WBC 13.2 H RBC 3.54 L Hgb 10.7 L Hct 32.0 L MCV 91 MCH 30.2 MCHC 33.4 RDW 13.4 Plt Count 205 Seg Neutrophils % 78.8 H Lymphocytes % 12.6 L Monocytes % 8.4 Eosinophils % 0.1 Basophils % 0.1 Absolute Neutrophils 10.4 H Absolute Lymphocytes 1.7 Absolute Monocytes 1.1 Absolute Eosinophils 0.0 Absolute Basophils 0.0 Sodium 138.7 Potassium 4.3 Chloride 104 Carbon Dioxide 25 Anion Gap 10 BUN 14 Creatinine 0.63 Est GFR ( Amer) > 60 Est GFR (Non-Af Amer) > 60 Glucose 126 H Calcium 8.0 L 05/31/16 05/31/16 06/01/16 20:40 20:40 03:11 Creatine Kinase 222 H CK-MB (CK-2) 2.20 2.94 Troponin I 0.013 < 0.012 06/01/16 06/01/16 06/01/16 03:11 09:48 09:48 Creatine Kinase 283 H 410 H CK-MB (CK-2) 4.02 Troponin I 0.015 Impressions: Cervical Spine CT 05/31/16 14:40 IMPRESSION: CHRONIC DEGENERATIVE CHANGES. NO ACUTE FINDINGS. Head CT 05/31/16 14:40 IMPRESSION: CHRONIC CHANGES OF ATROPHY AND MICROVASCULAR ISCHEMIA. NO ACUTE PROCESS. Chest X-Ray 05/31/16 18:20 IMPRESSION: NO ACUTE RADIOGRAPHIC FINDING IN THE CHEST. Fluoroscopy 06/03/16 00:00 IMPRESSION: Please see combined report for performance of procedure and radiologic supervision and interpretation. Hip/Pelvis X-Ray 06/04/16 00:00 IMPRESSION: Bilateral hip hardware. Good alignment. Old healed left superior and inferior pubic ramus fractures Assessment & Plan - Diagnosis (1) Displaced intertrochanteric fracture of right femur, initial encounter for closed fracture Qualifiers: Encounter type: subsequent encounter Fracture healing: with routine healing Qualified Code(s): S72.141D - Displaced intertrochanteric fracture of right femur, subsequent encounter for closed fracture with routine healing Is this a current diagnosis for this admission?: Yes - Plan Summary Plan Summary: 85-year-old female who is postop day 1 from nailing of her right intertrochanteric hip fracture. Tolerated and should participate with physical therapy every day. Likely will require rehabilitation at a [place] [facility] facility Stable H&H, we will monitor
[2016-06-04] MEDS: ATORVASTATIN CALCIUM 40 MG TABLET PO SCH (21:54)
[2016-06-05 05:25] LABS: ABSOLUTE EOSINOPHILS # (AUTO) 0.2 10^3/uL (0.0-0.6); ABSOLUTE LYMPHOCYTES (AUTO) 1.4 10^3/uL (0.5-4.7); BASOPHILS % (AUTO) 0.2 % (0-2); EOSINOPHILS % (AUTO) 1.6 % (0-6); HEMOGLOBIN 10.6 g/dL (12.0-15.5); HGB HCT DIFFERENCE -0.2; LYMPHOCYTES % (AUTO) 13.3 % (13-45); MEAN CORPUSCULAR HGB CONC 33.2 g/dL (32.0-36.0); MEAN CORPUSCULAR VOLUME 91 fl (80-97); MONOCYTES % (AUTO) 9.4 % (3-13); RED BLOOD COUNT 3.53 10^6/uL (3.72-5.28); RED CELL DISTRIBUTION WIDTH 13.6 % (11.5-14.0); SEGMENTED NEUTROPHILS % (AUTO) 75.5 % (42-78); WHITE BLOOD COUNT 10.6 10^3/uL (4.0-10.5)
[2016-06-05 05:52] LABS: ANION GAP 8 (5-19); BLOOD UREA NITROGEN 18 mg/dL (7-20); CALCIUM 8.3 mg/dL (8.4-10.2); CARBON DIOXIDE 27 mmol/L (22-30); CHLORIDE 104 mmol/L (98-107); CREATININE RESULT 0.64 mg/dL (0.52-1.25); GLUCOSE 92 mg/dL (75-110); POTASSIUM 4.1 mmol/L (3.6-5.0); SODIUM 138.6 mmol/L (137-145)
[2016-06-05] MEDS: DOCUSATE SODIUM 100 MG CAPSULE PO SCH ×2 (10:50→19:53)
[2016-06-05] MEDS: BUSPIRONE HCL 10 MG TABLET PO SCH ×2 (10:50→19:53)
[2016-06-05] MEDS: SERTRALINE HCL 50 MG TABLET PO SCH ×2 (10:50→19:53)
[2016-06-05] MEDS: CEFTRIAXONE 1 GM/D5W RTU 1 GM/50 ML RTUPB IV SCH (10:51)
--- NOTE | 2016-06-05 15:47 | PDOC PROGRESS REPORT ---
Subjective Progress Note for:: 06/05/16 Subjective:: Patient seen on morning rounds. She is resting comfortably in bed. She is unable to do review of systems due to her advanced dementia. They're presently are no family members at bedside. Nursing reports no issues overnight. She appears comfortable. Physical Exam Vital Signs: Temp Pulse Resp BP Pulse Ox 97.5 F 85 20 134/72 H 97 06/05/16 12:00 06/05/16 12:00 06/05/16 12:00 06/05/16 12:00 06/05/16 12:00 Intake & Output 06/04/16 06/05/16 06/06/16 06:59 06:59 06:59 Intake Total 600 460 Output Total 900 950 Balance -300 -490 Weight 49.7 kg 47.5 kg General appearance: PRESENT: no acute distress, thin, well-developed Head exam: PRESENT: atraumatic, normocephalic Eye exam: PRESENT: conjunctiva pink, EOMI, PERRLA. ABSENT: scleral icterus Ear exam: PRESENT: normal external ear exam Mouth exam: PRESENT: moist, tongue midline Teeth exam: PRESENT: edentulous Neck exam: ABSENT: carotid bruit, JVD, lymphadenopathy, thyromegaly Respiratory exam: PRESENT: clear to auscultation stanley. ABSENT: rales, rhonchi, wheezes Cardiovascular exam: PRESENT: RRR. ABSENT: diastolic murmur, rubs, systolic murmur Pulses: PRESENT: normal dorsalis pedis pul Vascular exam: PRESENT: normal capillary refill GI/Abdominal exam: PRESENT: normal bowel sounds, soft. ABSENT: distended, guarding, mass, organolmegaly, rebound, tenderness Rectal exam: PRESENT: deferred Extremities exam: PRESENT: full ROM. ABSENT: calf tenderness, clubbing, pedal edema Neurological exam: PRESENT: alert, altered, CN II-XII grossly intact Psychiatric exam: PRESENT: appropriate affect, normal mood. ABSENT: homicidal ideation, suicidal ideation Skin exam: PRESENT: dry, intact, warm. ABSENT: cyanosis, rash Results Laboratory Results: 06/05/16 04:04 06/05/16 04:04 06/05/16 06/05/16 04:04 04:04 WBC 10.6 H RBC 3.53 L Hgb 10.6 L Hct 32.0 L MCV 91 MCH 30.0 MCHC 33.2 RDW 13.6 Plt Count 229 Seg Neutrophils % 75.5 Lymphocytes % 13.3 Monocytes % 9.4 Eosinophils % 1.6 Basophils % 0.2 Absolute Neutrophils 8.0 Absolute Lymphocytes 1.4 Absolute Monocytes 1.0 Absolute Eosinophils 0.2 Absolute Basophils 0.0 Sodium 138.6 Potassium 4.1 Chloride 104 Carbon Dioxide 27 Anion Gap 8 BUN 18 Creatinine 0.64 Est GFR ( Amer) > 60 Est GFR (Non-Af Amer) > 60 Glucose 92 Calcium 8.3 L 06/03/16 09:15 Clean Catch Midstream Urine Culture - Final Escherichia Coli 05/31/16 05/31/16 06/01/16 20:40 20:40 03:11 Creatine Kinase 222 H CK-MB (CK-2) 2.20 2.94 Troponin I 0.013 < 0.012 06/01/16 06/01/16 06/01/16 03:11 09:48 09:48 Creatine Kinase 283 H 410 H CK-MB (CK-2) 4.02 Troponin I 0.015 Impressions: Cervical Spine CT 05/31/16 14:40 IMPRESSION: CHRONIC DEGENERATIVE CHANGES. NO ACUTE FINDINGS. Head CT 05/31/16 14:40 IMPRESSION: CHRONIC CHANGES OF ATROPHY AND MICROVASCULAR ISCHEMIA. NO ACUTE PROCESS. Chest X-Ray 05/31/16 18:20 IMPRESSION: NO ACUTE RADIOGRAPHIC FINDING IN THE CHEST. Fluoroscopy 06/03/16 00:00 IMPRESSION: Please see combined report for performance of procedure and radiologic supervision and interpretation. Hip/Pelvis X-Ray 06/04/16 00:00 IMPRESSION: Bilateral hip hardware. Good alignment. Old healed left superior and inferior pubic ramus fractures Assessment & Plan - Diagnosis (1) Hip fracture Qualifiers: Encounter type: initial encounter Fracture type: closed Laterality : right Qualified Code(s): S72.001A - Fracture of unspecified part of neck of right femur, initial encounter for closed fracture Is this a current diagnosis for this admission?: YesPlan: This is postop day 1 from ORIF of right hip. PT was ordered however will be difficult due to her advanced dementia. Discharge planning has been consult and for rehabilitation long-term [facility]. Patient had been at [facility] impressions several need rehabilitation which she get there. (2) Acute blood loss anemia Is this a current diagnosis for this admission?: YesPlan: Presently stable. We will continue to monitor. (3) Dementia Qualifiers: Dementia type: vascular dementia Is this a current diagnosis for this admission?: YesPlan: We'll be difficult for patient to participate with physical therapy due to her advanced dementia. Family is aware of this. (4) Hypertension Is this a current diagnosis for this admission?: YesPlan: Presently is normotensive on current medications (5) Scalp laceration Qualifiers: Encounter type: initial encounter Qualified Code(s): S01.01XA - Laceration without foreign body of scalp, initial encounter Is this a current diagnosis for this admission?: YesPlan: Annie are intact. They can be removed early next week. (6) Fall at skilled nursing Qualifiers: Encounter type: initial encounter Qualified Code(s): W19.XXXA - Unspecified fall, initial encounter; Y92.129 - Unspecified place in skilled nursing as the place of occurrence of the external cause Is this a current diagnosis for this admission?: YesPlan: Patient will be at risk for future falls. Patient is on fall precautions (7) UTI (urinary tract infection) Is this a current diagnosis for this admission?: YesPlan: Presently on IV Rocephin. Cultures are pending. - Time Time Spent with patient: 25-34 minutes Critical Time spent with patient: 15-24 minutes Medications reviewed and adjusted accordingly: Yes Anticipated discharge: SNF, Acute Rehab
--- NOTE | 2016-06-05 20:09 | PDOC PROGRESS REPORT ---
Subjective Progress Note for:: 06/05/16 Subjective:: No issues overnight. Patient resting in bed comfortably. Family member present at bedside. Physical Exam Vital Signs: Temp Pulse Resp BP Pulse Ox 36.7 C 93 20 128/58 H 96 06/05/16 16:00 06/05/16 16:00 06/05/16 16:00 06/05/16 16:00 06/05/16 16:00 Intake & Output 06/04/16 06/05/16 06/06/16 06:59 06:59 06:59 Intake Total 600 460 Output Total 900 950 Balance -300 -490 Weight 49.7 kg 47.5 kg General appearance: PRESENT: no acute distress Adult Front & Back Image: 1 - Dressing was changed and incision and rashel are dry clean and intact. Ecchymosis around the lateral aspect of the thigh. Neurovascular intact distally. Results Laboratory Results: 06/05/16 04:04 06/05/16 04:04 06/05/16 06/05/16 04:04 04:04 WBC 10.6 H RBC 3.53 L Hgb 10.6 L Hct 32.0 L MCV 91 MCH 30.0 MCHC 33.2 RDW 13.6 Plt Count 229 Seg Neutrophils % 75.5 Lymphocytes % 13.3 Monocytes % 9.4 Eosinophils % 1.6 Basophils % 0.2 Absolute Neutrophils 8.0 Absolute Lymphocytes 1.4 Absolute Monocytes 1.0 Absolute Eosinophils 0.2 Absolute Basophils 0.0 Sodium 138.6 Potassium 4.1 Chloride 104 Carbon Dioxide 27 Anion Gap 8 BUN 18 Creatinine 0.64 Est GFR ( Amer) > 60 Est GFR (Non-Af Amer) > 60 Glucose 92 Calcium 8.3 L 06/03/16 09:15 Clean Catch Midstream Urine Culture - Final Escherichia Coli 05/31/16 05/31/16 06/01/16 20:40 20:40 03:11 Creatine Kinase 222 H CK-MB (CK-2) 2.20 2.94 Troponin I 0.013 < 0.012 04/17/17 04/17/17 04/17/17 03:11 09:48 09:48 Creatine Kinase 283 H 410 H CK-MB (CK-2) 4.02 Troponin I 0.015 Impressions: Cervical Spine CT 05/31/16 14:40 IMPRESSION: CHRONIC DEGENERATIVE CHANGES. NO ACUTE FINDINGS. Head CT 05/31/16 14:40 IMPRESSION: CHRONIC CHANGES OF ATROPHY AND MICROVASCULAR ISCHEMIA. NO ACUTE PROCESS. Chest X-Ray 05/31/16 18:20 IMPRESSION: NO ACUTE RADIOGRAPHIC FINDING IN THE CHEST. Fluoroscopy 06/03/16 00:00 IMPRESSION: Please see combined report for performance of procedure and radiologic supervision and interpretation. Hip/Pelvis X-Ray 06/04/16 00:00 IMPRESSION: Bilateral hip hardware. Good alignment. Old healed left superior and inferior pubic ramus fractures Assessment & Plan - Diagnosis (1) Displaced intertrochanteric fracture of right femur, initial encounter for closed fracture Qualifiers: Encounter type: subsequent encounter Fracture healing: with routine healing Qualified Code(s): S72.141D - Displaced intertrochanteric fracture of right femur, subsequent encounter for closed fracture with routine healing Is this a current diagnosis for this admission?: Yes - Plan Summary Plan Summary: 85-year-old female postop day 2 from right hip nailing. Weight-bear as tolerated. Continue pain control Continue DVT prophylaxis Patient will need correction facility H&H stable
[2016-06-05] MEDS: ATORVASTATIN CALCIUM 40 MG TABLET PO SCH (21:35)
[2016-06-06 04:29] LABS: ABSOLUTE EOSINOPHILS # (AUTO) 0.2 10^3/uL (0.0-0.6); ABSOLUTE LYMPHOCYTES (AUTO) 1.3 10^3/uL (0.5-4.7); ABSOLUTE NEUT (AUTO) 8.6 10^3/uL (1.7-8.2); BASOPHILS % (AUTO) 0.2 % (0-2); EOSINOPHILS % (AUTO) 1.4 % (0-6); HEMATOCRIT 31.6 % (36.0-47.0); HEMOGLOBIN 10.5 g/dL (12.0-15.5); HGB HCT DIFFERENCE -0.1; LYMPHOCYTES % (AUTO) 11.6 % (13-45); MEAN CORPUSCULAR HEMOGLOBIN 29.7 pg (27.0-33.4); MEAN CORPUSCULAR HGB CONC 33.3 g/dL (32.0-36.0); MEAN CORPUSCULAR VOLUME 89 fl (80-97); MONOCYTES % (AUTO) 9.4 % (3-13); RED BLOOD COUNT 3.55 10^6/uL (3.72-5.28); RED CELL DISTRIBUTION WIDTH 13.5 % (11.5-14.0); SEGMENTED NEUTROPHILS % (AUTO) 77.4 % (42-78); WHITE BLOOD COUNT 11.1 10^3/uL (4.0-10.5)
[2016-06-06 04:35] LABS: ANION GAP 9 (5-19); BLOOD UREA NITROGEN 16 mg/dL (7-20); CALCIUM 8.1 mg/dL (8.4-10.2); CARBON DIOXIDE 25 mmol/L (22-30); CHLORIDE 104 mmol/L (98-107); CREATININE RESULT 0.54 mg/dL (0.52-1.25); GLUCOSE 101 mg/dL (75-110); POTASSIUM 3.8 mmol/L (3.6-5.0); SODIUM 137.7 mmol/L (137-145)
[2016-06-06] MEDS: CEFTRIAXONE 1 GM/D5W RTU 1 GM/50 ML RTUPB IV SCH (10:20)
[2016-06-06] MEDS: SERTRALINE HCL 50 MG TABLET PO SCH ×2 (10:20→18:08)
[2016-06-06] MEDS: BUSPIRONE HCL 10 MG TABLET PO SCH ×2 (10:20→18:09)
[2016-06-06] MEDS: DOCUSATE SODIUM 100 MG CAPSULE PO SCH ×2 (10:20→18:08)
--- NOTE | 2016-06-06 13:39 | PDOC PROGRESS REPORT ---
Subjective Progress Note for:: 06/06/16 Subjective:: Patient seen on morning rounds. She is resting comfortably in bed. She is unable to do review of systems due to her advanced dementia. They're presently are no family members at bedside. Nursing reports no issues overnight. She appears comfortable. Physical Exam Vital Signs: Temp Pulse Resp BP Pulse Ox 97.5 F 91 20 136/85 H 92 06/06/16 08:03 06/06/16 08:03 06/06/16 08:03 06/06/16 08:03 06/06/16 08:03 Intake & Output 06/05/16 06/06/16 06/07/16 06:59 06:59 06:59 Intake Total 460 240 Output Total 950 1100 Balance -490 -860 Weight 47.5 kg 51.8 kg General appearance: PRESENT: no acute distress, thin, well-developed, well- nourished Head exam: PRESENT: atraumatic, normocephalic Eye exam: PRESENT: conjunctiva pink, EOMI, PERRLA. ABSENT: scleral icterus Ear exam: PRESENT: normal external ear exam Mouth exam: PRESENT: moist, tongue midline Neck exam: ABSENT: carotid bruit, JVD, lymphadenopathy, thyromegaly Respiratory exam: PRESENT: clear to auscultation stanley. ABSENT: rales, rhonchi, wheezes Cardiovascular exam: PRESENT: RRR. ABSENT: diastolic murmur, rubs, systolic murmur Pulses: PRESENT: normal dorsalis pedis pul GI/Abdominal exam: PRESENT: normal bowel sounds, soft. ABSENT: distended, guarding, mass, organolmegaly, rebound, tenderness Rectal exam: PRESENT: deferred Extremities exam: PRESENT: tenderness - right hip. ABSENT: calf tenderness, clubbing, pedal edema Neurological exam: PRESENT: alert, altered, CN II-XII grossly intact Psychiatric exam: PRESENT: appropriate affect, normal mood. ABSENT: homicidal ideation, suicidal ideation Skin exam: PRESENT: dry, intact, warm. ABSENT: cyanosis, rash Results Laboratory Results: 06/06/16 03:40 06/06/16 03:40 06/06/16 06/06/16 03:40 03:40 WBC 11.1 H RBC 3.55 L Hgb 10.5 L Hct 31.6 L MCV 89 MCH 29.7 MCHC 33.3 RDW 13.5 Plt Count 232 Seg Neutrophils % 77.4 Lymphocytes % 11.6 L Monocytes % 9.4 Eosinophils % 1.4 Basophils % 0.2 Absolute Neutrophils 8.6 H Absolute Lymphocytes 1.3 Absolute Monocytes 1.0 Absolute Eosinophils 0.2 Absolute Basophils 0.0 Sodium 137.7 Potassium 3.8 Chloride 104 Carbon Dioxide 25 Anion Gap 9 BUN 16 Creatinine 0.54 Est GFR ( Amer) > 60 Est GFR (Non-Af Amer) > 60 Glucose 101 Calcium 8.1 L 05/31/16 05/31/16 06/01/16 20:40 20:40 03:11 Creatine Kinase 222 H CK-MB (CK-2) 2.20 2.94 Troponin I 0.013 < 0.012 06/01/16 06/01/16 06/01/16 03:11 09:48 09:48 Creatine Kinase 283 H 410 H CK-MB (CK-2) 4.02 Troponin I 0.015 Impressions: Cervical Spine CT 05/31/16 14:40 IMPRESSION: CHRONIC DEGENERATIVE CHANGES. NO ACUTE FINDINGS. Head CT 05/31/16 14:40 IMPRESSION: CHRONIC CHANGES OF ATROPHY AND MICROVASCULAR ISCHEMIA. NO ACUTE PROCESS. Chest X-Ray 05/31/16 18:20 IMPRESSION: NO ACUTE RADIOGRAPHIC FINDING IN THE CHEST. Fluoroscopy 06/03/16 00:00 IMPRESSION: Please see combined report for performance of procedure and radiologic supervision and interpretation. Hip/Pelvis X-Ray 06/04/16 00:00 IMPRESSION: Bilateral hip hardware. Good alignment. Old healed left superior and inferior pubic ramus fractures Assessment & Plan - Diagnosis (1) Hip fracture Qualifiers: Encounter type: initial encounter Fracture type: closed Laterality : right Qualified Code(s): S72.001A - Fracture of unspecified part of neck of right femur, initial encounter for closed fracture Is this a current diagnosis for this admission?: YesPlan: This is postop day 2 from ORIF of right hip. PT was ordered however will be difficult due to her advanced dementia. Discharge planning has been consult and for rehabilitation long-term [facility]. Patient had been at [facility] impressions several need rehabilitation which she get there. (2) Acute blood loss anemia Is this a current diagnosis for this admission?: YesPlan: Presently stable. We will continue to monitor. (3) Dementia Qualifiers: Dementia type: vascular dementia Is this a current diagnosis for this admission?: YesPlan: We'll be difficult for patient to participate with physical therapy due to her advanced dementia. Family is aware of this. (4) Hypertension Is this a current diagnosis for this admission?: YesPlan: Presently is normotensive on current medications (5) Scalp laceration Qualifiers: Encounter type: initial encounter Qualified Code(s): S01.01XA - Laceration without foreign body of scalp, initial encounter Is this a current diagnosis for this admission?: YesPlan: Nanie are intact. They can be removed early next week. (6) Fall at residential Qualifiers: Encounter type: initial encounter Qualified Code(s): W19.XXXA - Unspecified fall, initial encounter; Y92.129 - Unspecified place in residential as the place of occurrence of the external cause Is this a current diagnosis for this admission?: YesPlan: Patient will be at risk for future falls. Patient is on fall precautions (7) UTI (urinary tract infection) Is this a current diagnosis for this admission?: YesPlan: Presently on IV Rocephin. Cultures are pending. - Time Time Spent with patient: 25-34 minutes Critical Time spent with patient: 15-24 minutes Medications reviewed and adjusted accordingly: Yes Anticipated discharge: SNF, Acute Rehab Within: when bed available
--- NOTE | 2016-06-06 21:04 | PDOC PROGRESS REPORT ---
Subjective Progress Note for:: 06/06/16 Subjective:: Patient seen on rounds today. Lying in bed comfortably family member at bedside who states she has not been complaining of pain. Physical Exam Vital Signs: Temp Pulse Resp BP Pulse Ox 97.7 F 97 20 130/73 H 95 06/06/16 16:00 06/06/16 19:00 06/06/16 16:00 06/06/16 16:00 06/06/16 16:00 Intake & Output 06/05/16 06/06/16 06/07/16 06:59 06:59 06:59 Intake Total 460 240 400 Output Total 950 1100 400 Balance -490 -860 0 Weight 47.5 kg 51.8 kg Musculoskeletal exam: PRESENT: other - Right hip: Dressing with small amount of dried blood. Minimal thigh swelling. No calf tenderness. Intact plantar flexion/dorsiflexion. No evidence of the limb length inequality. Results Laboratory Results: 06/06/16 03:40 06/06/16 03:40 06/06/16 06/06/16 03:40 03:40 WBC 11.1 H RBC 3.55 L Hgb 10.5 L Hct 31.6 L MCV 89 MCH 29.7 MCHC 33.3 RDW 13.5 Plt Count 232 Seg Neutrophils % 77.4 Lymphocytes % 11.6 L Monocytes % 9.4 Eosinophils % 1.4 Basophils % 0.2 Absolute Neutrophils 8.6 H Absolute Lymphocytes 1.3 Absolute Monocytes 1.0 Absolute Eosinophils 0.2 Absolute Basophils 0.0 Sodium 137.7 Potassium 3.8 Chloride 104 Carbon Dioxide 25 Anion Gap 9 BUN 16 Creatinine 0.54 Est GFR ( Amer) > 60 Est GFR (Non-Af Amer) > 60 Glucose 101 Calcium 8.1 L 05/31/16 05/31/16 06/01/16 20:40 20:40 03:11 Creatine Kinase 222 H CK-MB (CK-2) 2.20 2.94 Troponin I 0.013 < 0.012 06/01/16 06/01/16 06/01/16 03:11 09:48 09:48 Creatine Kinase 283 H 410 H CK-MB (CK-2) 4.02 Troponin I 0.015 Impressions: Cervical Spine CT 05/31/16 14:40 IMPRESSION: CHRONIC DEGENERATIVE CHANGES. NO ACUTE FINDINGS. Head CT 05/31/16 14:40 IMPRESSION: CHRONIC CHANGES OF ATROPHY AND MICROVASCULAR ISCHEMIA. NO ACUTE PROCESS. Chest X-Ray 05/31/16 18:20 IMPRESSION: NO ACUTE RADIOGRAPHIC FINDING IN THE CHEST. Fluoroscopy 06/03/16 00:00 IMPRESSION: Please see combined report for performance of procedure and radiologic supervision and interpretation. Hip/Pelvis X-Ray 06/04/16 00:00 IMPRESSION: Bilateral hip hardware. Good alignment. Old healed left superior and inferior pubic ramus fractures Assessment & Plan - Diagnosis (1) Displaced intertrochanteric fracture of right femur, initial encounter for closed fracture Qualifiers: Encounter type: subsequent encounter Fracture healing: with routine healing Qualified Code(s): S72.141D - Displaced intertrochanteric fracture of right femur, subsequent encounter for closed fracture with routine healing Is this a current diagnosis for this admission?: YesPlan: Status post IM nail right intertrochanteric hip fracture #1 physical therapy #2 pain control #3 heparin for DVT prophylaxis #4 discharge planning patient will require senior care facility
[2016-06-06] MEDS: OXYCODONE-ACETAMINOPHEN 5-325 MG TABLET PO PRN (21:19)
[2016-06-06] MEDS: ATORVASTATIN CALCIUM 40 MG TABLET PO SCH (21:19)
[2016-06-07] MEDS: OXYCODONE-ACETAMINOPHEN 5-325 MG TABLET PO PRN ×3 (06:01→21:03)
[2016-06-07] MEDS: CEFTRIAXONE 1 GM/D5W RTU 1 GM/50 ML RTUPB IV SCH (10:30)
[2016-06-07] MEDS: DOCUSATE SODIUM 100 MG CAPSULE PO SCH ×2 (10:31→17:29)
[2016-06-07] MEDS: BUSPIRONE HCL 10 MG TABLET PO SCH ×2 (10:31→17:32)
[2016-06-07] MEDS: SERTRALINE HCL 50 MG TABLET PO SCH ×2 (10:31→17:33)
--- NOTE | 2016-06-07 11:41 | PDOC PROGRESS REPORT ---
Subjective Progress Note for:: 06/07/16 Subjective:: Patient seen on morning rounds. She is resting comfortably in bed. She is unable to do review of systems due to her advanced dementia. They're presently are no family members at bedside. Nursing reports no issues overnight. She appears comfortable. Physical Exam Vital Signs: Temp Pulse Resp BP Pulse Ox 98.6 F 93 18 122/72 92 06/07/16 08:00 06/07/16 08:00 06/07/16 08:00 06/07/16 08:00 06/07/16 08:00 Intake & Output 06/06/16 06/07/16 06/08/16 06:59 06:59 06:59 Intake Total 240 520 Output Total 1100 400 Balance -860 120 Weight 51.8 kg 49.8 kg General appearance: PRESENT: no acute distress, thin, well-developed Head exam: PRESENT: atraumatic, normocephalic Eye exam: PRESENT: conjunctiva pink, EOMI, PERRLA. ABSENT: scleral icterus Ear exam: PRESENT: normal external ear exam Neck exam: ABSENT: carotid bruit, JVD, lymphadenopathy, thyromegaly Respiratory exam: PRESENT: clear to auscultation stanley. ABSENT: rales, rhonchi, wheezes Cardiovascular exam: PRESENT: RRR. ABSENT: diastolic murmur, rubs, systolic murmur Pulses: PRESENT: normal dorsalis pedis pul Vascular exam: PRESENT: normal capillary refill GI/Abdominal exam: PRESENT: normal bowel sounds, soft. ABSENT: distended, guarding, mass, organolmegaly, rebound, tenderness Rectal exam: PRESENT: deferred Extremities exam: PRESENT: tenderness Musculoskeletal exam: PRESENT: full ROM, normal inspection, tenderness - right hip Neurological exam: PRESENT: alert, altered, CN II-XII grossly intact Psychiatric exam: PRESENT: flat affect Skin exam: PRESENT: dry, normal color, warm Results Laboratory Results: 06/06/16 03:40 06/06/16 03:40 05/31/16 05/31/16 06/01/16 20:40 20:40 03:11 Creatine Kinase 222 H CK-MB (CK-2) 2.20 2.94 Troponin I 0.013 < 0.012 06/01/16 06/01/16 06/01/16 03:11 09:48 09:48 Creatine Kinase 283 H 410 H CK-MB (CK-2) 4.02 Troponin I 0.015 Impressions: Cervical Spine CT 05/31/16 14:40 IMPRESSION: CHRONIC DEGENERATIVE CHANGES. NO ACUTE FINDINGS. Head CT 05/31/16 14:40 IMPRESSION: CHRONIC CHANGES OF ATROPHY AND MICROVASCULAR ISCHEMIA. NO ACUTE PROCESS. Chest X-Ray 05/31/16 18:20 IMPRESSION: NO ACUTE RADIOGRAPHIC FINDING IN THE CHEST. Fluoroscopy 06/03/16 00:00 IMPRESSION: Please see combined report for performance of procedure and radiologic supervision and interpretation. Hip/Pelvis X-Ray 06/04/16 00:00 IMPRESSION: Bilateral hip hardware. Good alignment. Old healed left superior and inferior pubic ramus fractures Assessment & Plan - Diagnosis (1) Hip fracture Qualifiers: Encounter type: initial encounter Fracture type: closed Laterality : right Qualified Code(s): S72.001A - Fracture of unspecified part of neck of right femur, initial encounter for closed fracture Is this a current diagnosis for this admission?: YesPlan: This is postop day 2 from ORIF of right hip. PT was ordered however will be difficult due to her advanced dementia. Discharge planning has been consult and for rehabilitation long-term shelter. Patient had been at [facility] impressions several need rehabilitation which she get there. (2) Acute blood loss anemia Is this a current diagnosis for this admission?: YesPlan: Presently stable. We will continue to monitor. (3) Dementia Qualifiers: Dementia type: vascular dementia Is this a current diagnosis for this admission?: YesPlan: We'll be difficult for patient to participate with physical therapy due to her advanced dementia. Family is aware of this. (4) Hypertension Is this a current diagnosis for this admission?: YesPlan: Presently is normotensive on current medications (5) Scalp laceration Qualifiers: Encounter type: initial encounter Qualified Code(s): S01.01XA - Laceration without foreign body of scalp, initial encounter Is this a current diagnosis for this admission?: YesPlan: [place] are intact. They can be removed early next week. (6) Fall at senior living Qualifiers: Encounter type: initial encounter Qualified Code(s): W19.XXXA - Unspecified fall, initial encounter; Y92.129 - Unspecified place in senior living as the place of occurrence of the external cause Is this a current diagnosis for this admission?: YesPlan: Patient will be at risk for future falls. Patient is on fall precautions (7) UTI (urinary tract infection) Is this a current diagnosis for this admission?: YesPlan: Presently on IV Rocephin. Cultures are pending. - Time Time Spent with patient: 25-34 minutes Critical Time spent with patient: 15-24 minutes Anticipated discharge: Acute Rehab Within: when bed available
[2016-06-07] MEDS: ATORVASTATIN CALCIUM 40 MG TABLET PO SCH (21:02)
[2016-06-08 04:49] LABS: ABSOLUTE BASOPHILS # (AUTO) 0.1 10^3/uL (0.0-0.2); ABSOLUTE EOSINOPHILS # (AUTO) 0.3 10^3/uL (0.0-0.6); ABSOLUTE LYMPHOCYTES (AUTO) 1.9 10^3/uL (0.5-4.7); ABSOLUTE MONOCYTES (AUTO) 0.9 10^3/uL (0.1-1.4); ABSOLUTE NEUT (AUTO) 8.9 10^3/uL (1.7-8.2); BASOPHILS % (AUTO) 0.4 % (0-2); EOSINOPHILS % (AUTO) 2.2 % (0-6); HEMATOCRIT 30.3 % (36.0-47.0); HEMOGLOBIN 10.3 g/dL (12.0-15.5); HGB HCT DIFFERENCE 0.6; LYMPHOCYTES % (AUTO) 15.6 % (13-45); MEAN CORPUSCULAR HEMOGLOBIN 30.5 pg (27.0-33.4); MEAN CORPUSCULAR HGB CONC 34.1 g/dL (32.0-36.0); MEAN CORPUSCULAR VOLUME 89 fl (80-97); MONOCYTES % (AUTO) 7.7 % (3-13); RED BLOOD COUNT 3.39 10^6/uL (3.72-5.28); RED CELL DISTRIBUTION WIDTH 13.6 % (11.5-14.0); SEGMENTED NEUTROPHILS % (AUTO) 74.1 % (42-78); WHITE BLOOD COUNT 12.1 10^3/uL (4.0-10.5)
[2016-06-08 04:58] LABS: ANION GAP 12 (5-19); BLOOD UREA NITROGEN 22 mg/dL (7-20); CALCIUM 8.6 mg/dL (8.4-10.2); CARBON DIOXIDE 26 mmol/L (22-30); CHLORIDE 101 mmol/L (98-107); CREATININE RESULT 0.65 mg/dL (0.52-1.25); GLUCOSE 91 mg/dL (75-110); POTASSIUM 4.2 mmol/L (3.6-5.0); SODIUM 138.7 mmol/L (137-145)
[2016-06-08] MEDS: CEFTRIAXONE 1 GM/D5W RTU 1 GM/50 ML RTUPB IV SCH (12:43)
[2016-06-08] MEDS: SERTRALINE HCL 50 MG TABLET PO SCH ×2 (12:44→17:46)
[2016-06-08] MEDS: DOCUSATE SODIUM 100 MG CAPSULE PO SCH ×2 (12:44→17:45)
[2016-06-08] MEDS: BUSPIRONE HCL 10 MG TABLET PO SCH ×2 (12:44→17:46)
[2016-06-08] MEDS: HEPARIN SOD (PORCINE) 5,000 UNIT/ML 1 ML SYRINGE SUBCUT SCH (12:45)
[2016-06-08] MEDS: OXYCODONE-ACETAMINOPHEN 5-325 MG TABLET PO PRN (12:45)
--- NOTE | 2016-06-08 16:36 | PDOC PROGRESS REPORT ---
Subjective Progress Note for:: 06/08/16 Subjective:: Patient seen on morning rounds. She is resting comfortably in bed. She is unable to do review of systems due to her advanced dementia. They're presently are no family members at bedside. Nursing reports no issues overnight. She appears comfortable. Physical Exam Vital Signs: Temp Pulse Resp BP Pulse Ox 97.6 F 84 16 143/80 H 94 06/08/16 11:17 06/08/16 14:00 06/08/16 11:17 06/08/16 11:17 06/08/16 11:17 Intake & Output 06/07/16 06/08/16 06/09/16 06:59 06:59 06:59 Intake Total 520 1385 Output Total 400 200 Balance 120 1185 Weight 49.8 kg 50.2 kg Results Laboratory Results: 06/08/16 03:51 06/08/16 03:51 06/08/16 06/08/16 03:51 03:51 WBC 12.1 H RBC 3.39 L Hgb 10.3 L Hct 30.3 L MCV 89 MCH 30.5 MCHC 34.1 RDW 13.6 Plt Count 298 Seg Neutrophils % 74.1 Lymphocytes % 15.6 Monocytes % 7.7 Eosinophils % 2.2 Basophils % 0.4 Absolute Neutrophils 8.9 H Absolute Lymphocytes 1.9 Absolute Monocytes 0.9 Absolute Eosinophils 0.3 Absolute Basophils 0.1 Sodium 138.7 Potassium 4.2 Chloride 101 Carbon Dioxide 26 Anion Gap 12 BUN 22 H Creatinine 0.65 Est GFR ( Amer) > 60 Est GFR (Non-Af Amer) > 60 Glucose 91 Calcium 8.6 06/03/16 09:59 Blood Blood Culture - Final NO GROWTH IN 5 DAYS 06/03/16 08:42 Blood Blood Culture - Final NO GROWTH IN 5 DAYS 05/31/16 05/31/16 06/01/16 20:40 20:40 03:11 Creatine Kinase 222 H CK-MB (CK-2) 2.20 2.94 Troponin I 0.013 < 0.012 06/01/16 06/01/16 06/01/16 03:11 09:48 09:48 Creatine Kinase 283 H 410 H CK-MB (CK-2) 4.02 Troponin I 0.015 Impressions: Cervical Spine CT 05/31/16 14:40 IMPRESSION: CHRONIC DEGENERATIVE CHANGES. NO ACUTE FINDINGS. Head CT 05/31/16 14:40 IMPRESSION: CHRONIC CHANGES OF ATROPHY AND MICROVASCULAR ISCHEMIA. NO ACUTE PROCESS. Chest X-Ray 05/31/16 18:20 IMPRESSION: NO ACUTE RADIOGRAPHIC FINDING IN THE CHEST. Fluoroscopy 06/03/16 00:00 IMPRESSION: Please see combined report for performance of procedure and radiologic supervision and interpretation. Hip/Pelvis X-Ray 06/04/16 00:00 IMPRESSION: Bilateral hip hardware. Good alignment. Old healed left superior and inferior pubic ramus fractures Assessment & Plan - Diagnosis (1) Hip fracture Qualifiers: Encounter type: initial encounter Fracture type: closed Laterality : right Qualified Code(s): S72.001A - Fracture of unspecified part of neck of right femur, initial encounter for closed fracture Is this a current diagnosis for this admission?: YesPlan: This is postop day 2 from ORIF of right hip. PT was ordered however will be difficult due to her advanced dementia. Discharge planning has been consult and for rehabilitation [facility] [place] [facility]. Patient had been at [facility] impressions several need rehabilitation which she get there. (2) Acute blood loss anemia Is this a current diagnosis for this admission?: YesPlan: Presently stable. We will continue to monitor. (3) Dementia Qualifiers: Dementia type: vascular dementia Is this a current diagnosis for this admission?: YesPlan: We'll be difficult for patient to participate with physical therapy due to her advanced dementia. Family is aware of this. (4) Hypertension Is this a current diagnosis for this admission?: YesPlan: Presently is normotensive on current medications (5) Scalp laceration Qualifiers: Encounter type: initial encounter Qualified Code(s): S01.01XA - Laceration without foreign body of scalp, initial encounter Is this a current diagnosis for this admission?: YesPlan: Annie are intact. They can be removed early next week. (6) Fall at snf Qualifiers: Encounter type: initial encounter Qualified Code(s): W19.XXXA - Unspecified fall, initial encounter; Y92.129 - Unspecified place in snf as the place of occurrence of the external cause Is this a current diagnosis for this admission?: YesPlan: Patient will be at risk for future falls. Patient is on fall precautions (7) UTI (urinary tract infection) Is this a current diagnosis for this admission?: YesPlan: Presently on IV Rocephin. Cultures are pending. - Time Time Spent with patient: 25-34 minutes Critical Time spent with patient: 15-24 minutes Medications reviewed and adjusted accordingly: Yes Anticipated discharge: Acute Rehab Within: when bed available
--- NOTE | 2016-06-08 17:42 | PDOC PROGRESS REPORT ---
Subjective Progress Note for:: 06/08/16 Subjective:: Patient is resting comfortably in bed. Family member at bedside. No issues overnight. Physical Exam Vital Signs: Temp Pulse Resp BP Pulse Ox 36.4 C 96 17 141/69 H 93 06/08/16 16:07 06/08/16 16:07 06/08/16 16:07 06/08/16 16:07 06/08/16 16:07 Intake & Output 06/07/16 06/08/16 06/09/16 06:59 06:59 06:59 Intake Total 520 1385 Output Total 400 200 Balance 120 1185 Weight 49.8 kg 50.2 kg Adult Front & Back Image: 1 - Ecchymosis on the incision sites. Annie are dry clean and intact. New dressing is dry clean and intact. Neurovascularly intact distally. Results Laboratory Results: 06/08/16 03:51 06/08/16 03:51 06/08/16 06/08/16 03:51 03:51 WBC 12.1 H RBC 3.39 L Hgb 10.3 L Hct 30.3 L MCV 89 MCH 30.5 MCHC 34.1 RDW 13.6 Plt Count 298 Seg Neutrophils % 74.1 Lymphocytes % 15.6 Monocytes % 7.7 Eosinophils % 2.2 Basophils % 0.4 Absolute Neutrophils 8.9 H Absolute Lymphocytes 1.9 Absolute Monocytes 0.9 Absolute Eosinophils 0.3 Absolute Basophils 0.1 Sodium 138.7 Potassium 4.2 Chloride 101 Carbon Dioxide 26 Anion Gap 12 BUN 22 H Creatinine 0.65 Est GFR ( Amer) > 60 Est GFR (Non-Af Amer) > 60 Glucose 91 Calcium 8.6 06/03/16 09:59 Blood Blood Culture - Final NO GROWTH IN 5 DAYS 06/03/16 08:42 Blood Blood Culture - Final NO GROWTH IN 5 DAYS 05/31/16 05/31/16 06/01/16 20:40 20:40 03:11 Creatine Kinase 222 H CK-MB (CK-2) 2.20 2.94 Troponin I 0.013 < 0.012 06/01/16 06/01/1606/01/17 03:11 09:48 09:48 Creatine Kinase 283 H 410 H CK-MB (CK-2) 4.02 Troponin I 0.015 Impressions: Cervical Spine CT 05/31/16 14:40 IMPRESSION: CHRONIC DEGENERATIVE CHANGES. NO ACUTE FINDINGS. Head CT 05/31/16 14:40 IMPRESSION: CHRONIC CHANGES OF ATROPHY AND MICROVASCULAR ISCHEMIA. NO ACUTE PROCESS. Chest X-Ray 05/31/16 18:20 IMPRESSION: NO ACUTE RADIOGRAPHIC FINDING IN THE CHEST. Fluoroscopy 06/03/16 00:00 IMPRESSION: Please see combined report for performance of procedure and radiologic supervision and interpretation. Hip/Pelvis X-Ray 06/04/16 00:00 IMPRESSION: Bilateral hip hardware. Good alignment. Old healed left superior and inferior pubic ramus fractures Assessment & Plan - Diagnosis (1) Displaced intertrochanteric fracture of right femur, initial encounter for closed fracture Qualifiers: Encounter type: subsequent encounter Fracture healing: with routine healing Qualified Code(s): S72.141D - Displaced intertrochanteric fracture of right femur, subsequent encounter for closed fracture with routine healing Is this a current diagnosis for this admission?: Yes - Plan Summary Plan Summary: 85-year-old female who is postop day 4 from ORIF of the right hip fracture. She also has a small laceration on the scalp which I instructed the nurse to remove. Patient can be weightbearing as tolerated with assistance. Continue physical therapy. Awaiting bed for rehabilitation placement. Continue current care.
[2016-06-08] MEDS: ATORVASTATIN CALCIUM 40 MG TABLET PO SCH (21:21)
[2016-06-09] MEDS: BUSPIRONE HCL 10 MG TABLET PO SCH ×2 (11:00→18:05)
[2016-06-09] MEDS: DOCUSATE SODIUM 100 MG CAPSULE PO SCH ×2 (11:00→18:05)
[2016-06-09] MEDS: CEFTRIAXONE 1 GM/D5W RTU 1 GM/50 ML RTUPB IV SCH (11:00)
[2016-06-09] MEDS: SERTRALINE HCL 50 MG TABLET PO SCH ×2 (11:00→18:06)
--- NOTE | 2016-06-09 15:41 | PDOC PROGRESS REPORT ---
Subjective Progress Note for:: 06/09/16 Subjective:: Patient seen on morning rounds. She is resting comfortably in bed. She is unable to do review of systems due to her advanced dementia. They're presently are no family members at bedside. Nursing reports no issues overnight. She appears comfortable. Physical Exam Vital Signs: Temp Pulse Resp BP Pulse Ox 98.4 F 97 20 132/69 H 92 06/09/16 12:00 06/09/16 12:00 06/09/16 12:00 06/09/16 12:00 06/09/16 12:00 Intake & Output 06/08/16 06/09/16 06/10/16 06:59 06:59 06:59 Intake Total 1385 680 Output Total 200 Balance 1185 680 Weight 50.2 kg 50.2 kg General appearance: PRESENT: no acute distress, thin, well-developed, well- nourished Head exam: PRESENT: atraumatic, normocephalic Eye exam: PRESENT: conjunctiva pink, EOMI, PERRLA. ABSENT: scleral icterus Ear exam: PRESENT: normal external ear exam Mouth exam: PRESENT: moist, tongue midline Neck exam: ABSENT: carotid bruit, JVD, lymphadenopathy, thyromegaly Respiratory exam: PRESENT: clear to auscultation stanley. ABSENT: rales, rhonchi, wheezes Cardiovascular exam: PRESENT: RRR. ABSENT: diastolic murmur, rubs, systolic murmur Pulses: PRESENT: normal dorsalis pedis pul Vascular exam: PRESENT: normal capillary refill GI/Abdominal exam: PRESENT: normal bowel sounds, soft. ABSENT: distended, guarding, mass, organolmegaly, rebound, tenderness Rectal exam: PRESENT: deferred Extremities exam: PRESENT: full ROM. ABSENT: calf tenderness, clubbing, pedal edema Neurological exam: PRESENT: alert, awake, oriented to person, oriented to place , oriented to time, oriented to situation, CN II-XII grossly intact. ABSENT: motor sensory deficit Psychiatric exam: PRESENT: appropriate affect, normal mood. ABSENT: homicidal ideation, suicidal ideation Skin exam: PRESENT: dry, intact, warm. ABSENT: cyanosis, rash Results Laboratory Results: 06/08/16 03:51 06/08/16 03:51 05/31/16 05/31/16 06/01/16 20:40 20:40 03:11 Creatine Kinase 222 H CK-MB (CK-2) 2.20 2.94 Troponin I 0.013 < 0.012 06/01/16 06/01/16 06/01/16 03:11 09:48 09:48 Creatine Kinase 283 H 410 H CK-MB (CK-2) 4.02 Troponin I 0.015 Impressions: Cervical Spine CT 05/31/16 14:40 IMPRESSION: CHRONIC DEGENERATIVE CHANGES. NO ACUTE FINDINGS. Head CT 05/31/16 14:40 IMPRESSION: CHRONIC CHANGES OF ATROPHY AND MICROVASCULAR ISCHEMIA. NO ACUTE PROCESS. Chest X-Ray 05/31/16 18:20 IMPRESSION: NO ACUTE RADIOGRAPHIC FINDING IN THE CHEST. Fluoroscopy 06/03/16 00:00 IMPRESSION: Please see combined report for performance of procedure and radiologic supervision and interpretation. Hip/Pelvis X-Ray 06/04/16 00:00 IMPRESSION: Bilateral hip hardware. Good alignment. Old healed left superior and inferior pubic ramus fractures Assessment & Plan - Diagnosis (1) Hip fracture Qualifiers: Encounter type: initial encounter Fracture type: closed Laterality : right Qualified Code(s): S72.001A - Fracture of unspecified part of neck of right femur, initial encounter for closed fracture Is this a current diagnosis for this admission?: YesPlan: This is postop day 2 from ORIF of right hip. PT was ordered however will be difficult due to her advanced dementia. Discharge planning has been consult and for rehabilitation long-term longterm. Patient had been at [facility] impressions several need rehabilitation which she get there. (2) Acute blood loss anemia Is this a current diagnosis for this admission?: YesPlan: Presently stable. We will continue to monitor. (3) Dementia Qualifiers: Dementia type: vascular dementia Is this a current diagnosis for this admission?: YesPlan: We'll be difficult for patient to participate with physical therapy due to her advanced dementia. Family is aware of this. (4) Hypertension Is this a current diagnosis for this admission?: YesPlan: Presently is normotensive on current medications (5) Scalp laceration Qualifiers: Encounter type: initial encounter Qualified Code(s): S01.01XA - Laceration without foreign body of scalp, initial encounter Is this a current diagnosis for this admission?: YesPlan: [place] are intact. They can be removed early next week. (6) Fall at correction Qualifiers: Encounter type: initial encounter Qualified Code(s): W19.XXXA - Unspecified fall, initial encounter; Y92.129 - Unspecified place in correction as the place of occurrence of the external cause Is this a current diagnosis for this admission?: YesPlan: Patient will be at risk for future falls. Patient is on fall precautions (7) UTI (urinary tract infection) Is this a current diagnosis for this admission?: YesPlan: Presently on IV Rocephin. Cultures are pending. - Time Time Spent with patient: 25-34 minutes Medications reviewed and adjusted accordingly: Yes Anticipated discharge: Acute Rehab Within: when bed available
[2016-06-09] MEDS: ATORVASTATIN CALCIUM 40 MG TABLET PO SCH (21:19)
[2016-06-10] MEDS: SERTRALINE HCL 50 MG TABLET PO SCH (09:54)
[2016-06-10] MEDS: DOCUSATE SODIUM 100 MG CAPSULE PO SCH (09:54)
[2016-06-10] MEDS: BUSPIRONE HCL 10 MG TABLET PO SCH (09:55)
--- NOTE | 2016-06-10 10:34 | PDOC TRANSFER SUMMARY ---
General - Admit/Disc Date/PCP Admission Date/Primary Care Provider: 05/31/16 19:54 RONAN KELLY MD Discharge Date: 06/10/16 - Discharge Diagnosis (1) Hip fracture Is this a current diagnosis for this admission?: YesSummary: Follow up with orthopedics as needed (2) Acute blood loss anemia Is this a current diagnosis for this admission?: YesSummary: Stable and improving (3) Dementia Is this a current diagnosis for this admission?: Yes (4) Hypertension Is this a current diagnosis for this admission?: Yes (5) Scalp laceration Is this a current diagnosis for this admission?: YesSummary: Cass out (6) Fall at senior living Is this a current diagnosis for this admission?: YesSummary: Fall precautions (7) UTI (urinary tract infection) Is this a current diagnosis for this admission?: YesSummary: Treated and resolved - Additional Information Resuscitation Status: Do Not Resuscitate Discharge Diet: Regular Discharge Activity: Activity As Tolerated, Balance Activity w/Rest Home Medications: Acetaminophen [Tylenol 325 mg Tablet] 650 mg PO Q4HP PRN 06/01/16 Alendronate Sodium [Fosamax 70 mg Tablet] 70 mg PO FR@1000 06/01/16 Aspirin [Aspirin 81 mg Chewable Tablet] 81 mg PO DAILY 06/01/16 Docusate Sodium [Colace 100 mg Capsule] 100 mg PO DAILY 06/01/16 Guaifenesin [Robitussin Syrup 200 mg/10 ml Ud Cup] 200 mg PO Q4HP PRN 06/01/16 Hydrocortisone Acetate [Proctocort] 30 mg OR BIDP PRN 06/01/16 Loperamide HCl [Imodium 2 mg Capsule] 4 cap PO DAILYP PRN 06/01/16 Melatonin 5 mg PO QHS 06/01/16 Memantine HCl [Namenda Xr] 14 mg PO DAILY 06/01/16 Mirtazapine [Remeron 15 mg Tablet] 15 mg PO QHS 06/01/16 Multivitamin/Iron/Folic Acid [Cerovite Advanced Form Tab] 1 tab PO DAILY Quetiapine Fumarate [Seroquel 25 mg Tablet] 25 mg PO QAM 06/01/16 Quetiapine Fumarate [Seroquel] 50 mg PO QHS 06/01/16 History of Present Illness Admission Date/PCP: 05/31/16 19:54 RONAN KELLY MD Patient complains of: Right hip pain and scalp laceration after fall History of Present Illness: 85-year-old female with dementia who ambulates with a rolling walker. She suffered a fall on 05/31/2016 while trying to go to the bathroom. She merely fell onto her right side and complain of right hip pain and was unable to ambulate. Patient was brought to the hospital and diagnosed with right intertrochanteric hip fracture. Patient family did not want her transferred to a tertiary center therefore patient waited 2 days before orthopedic could be consulted. During her hospital stay she had a laceration in her head which was cleaned and stapled. The dementia is baseline. She has history of small stroke. Denies any other extremity pain swelling numbness or tingling. Due to her dementia most of the information was provided by her daughter who is the power of energy attorney. She states she has history of a hip fracture on the left side that was fixed by Dr. Linda. Hospital Course Hospital Course: Patient was referred to the hospitalist service for admission. She was admitted to telemetry. Orthopedics was consulted, however due to the call schedule there is no orthopedic surgeon available for 2 days. Her family was given the option of transfer to another tertiary facility for orthopedic surgery or wait. They chose to wait. Dr. Tsering Holloway, orthopedic surgeon, saw the patient in consult and took her to the operating room on 06/04/2016 for ORIF of the right hip. Physical therapy was consult postoperatively, unfortunately due to the patient's advanced dementia she was unable to participate in their direction. Discharge planning has been consulted for detention placement with possibility of rehabilitation. Referrals were sent to local detention facilities with rehabilitation. Unfortunately, due to patient's insurance coverage none of these facilities are related to accept the patient. Discharge planning, spoke with the patient's daughter on 06/0407/04/2016. Daughter now states she wishes patient to go back to the assisted care living she came from with home physical therapy. This has been arranged with discharge planning. Patient will need to follow-up with orthopedics in 1 week for staple removal. Physical Exam Vital Signs: Temp Pulse Resp BP Pulse Ox 97.7 F 88 18 134/85 H 93 06/10/16 08:00 06/10/16 08:00 06/10/16 08:00 06/10/16 08:00 06/10/16 08:00 Intake & Output 06/09/16 06/10/16 06/11/16 06:59 06:59 06:59 Intake Total 680 160 Output Total 500 Balance 680 -340 Weight 50.2 kg 51.2 kg General appearance: PRESENT: no acute distress, thin, well-developed, well- nourished Head exam: PRESENT: atraumatic, normocephalic Eye exam: PRESENT: conjunctiva pink, EOMI, PERRLA. ABSENT: scleral icterus Ear exam: PRESENT: normal external ear exam Neck exam: ABSENT: carotid bruit, JVD, lymphadenopathy, thyromegaly Respiratory exam: PRESENT: clear to auscultation stanley. ABSENT: rales, rhonchi, wheezes Cardiovascular exam: PRESENT: RRR. ABSENT: diastolic murmur, rubs, systolic murmur Pulses: PRESENT: normal dorsalis pedis pul Vascular exam: PRESENT: normal capillary refill GI/Abdominal exam: PRESENT: normal bowel sounds, soft. ABSENT: distended, guarding, mass, organolmegaly, rebound, tenderness Rectal exam: PRESENT: deferred Extremities exam: PRESENT: tenderness - right hip, dressing clean and dry Musculoskeletal exam: PRESENT: full ROM Neurological exam: PRESENT: alert, altered, CN II-XII grossly intact Psychiatric exam: PRESENT: flat affect Skin exam: PRESENT: other - right hip dressing dry and intact Results Laboratory Results: 06/08/16 03:51 06/08/16 03:51 05/31/16 05/31/16 06/01/16 20:40 20:40 03:11 Creatine Kinase 222 H CK-MB (CK-2) 2.20 2.94 Troponin I 0.013 < 0.012 06/01/16 06/01/16 06/01/16 03:11 09:48 09:48 Creatine Kinase 283 H 410 H CK-MB (CK-2) 4.02 Troponin I 0.015 Impressions: Cervical Spine CT 05/31/16 14:40 IMPRESSION: CHRONIC DEGENERATIVE CHANGES. NO ACUTE FINDINGS. Head CT 05/31/16 14:40 IMPRESSION: CHRONIC CHANGES OF ATROPHY AND MICROVASCULAR ISCHEMIA. NO ACUTE PROCESS. Chest X-Ray 05/31/16 18:20 IMPRESSION: NO ACUTE RADIOGRAPHIC FINDING IN THE CHEST. Fluoroscopy 06/03/16 00:00 IMPRESSION: Please see combined report for performance of procedure and radiologic supervision and interpretation. Hip/Pelvis X-Ray 06/04/16 00:00 IMPRESSION: Bilateral hip hardware. Good alignment. Old healed left superior and inferior pubic ramus fractures Transfer Plan - Disposition Transfer Plan: Transfer to assisted living with home health physical therapy Plan Time Spent: Less than 30 Minutes
[2016-06-10 14:13] VITALS: BP 128/68
== END 2016-06-10 15:15 | DRG 481 ==
LOC: ER 14:21 → EH 19:54 → UNDOADMIN 20:02 → EH 20:02 → 4N 22:00
PROVIDERS: ADMIT Internal Medicine; ATTEND Internal Medicine
PROC: 3E0234Z Introduction of Serum, Toxoid and Vaccine into Muscle, Percutaneous Approach (ICD-10-PCS; 2016-05-31)
PROC: 0HQ0XZZ Repair Scalp Skin, External Approach (ICD-10-PCS; 2016-06-03)
PROC: 0QS636Z Reposition Right Upper Femur with Intramedullary Internal Fixation Device, Percutaneous Approach (ICD-10-PCS; principal; 2016-06-03 16:30)
DX: S72.141A Displaced intertrochanteric fracture of right femur, initial encounter for closed fracture (principal); N39.0 Urinary tract infection, site not specified; D62 Acute posthemorrhagic anemia; S01.01XA Laceration without foreign body of scalp, initial encounter; W19.XXXA Unspecified fall, initial encounter; F03.90 Unspecified dementia, unspecified severity, without behavioral disturbance, psychotic disturbance, mood disturbance, and anxiety; D72.829 Elevated white blood cell count, unspecified; Y92.129 Unspecified place in nursing home as the place of occurrence of the external cause; Z91.81 History of falling; F01.50 Vascular dementia, unspecified severity, without behavioral disturbance, psychotic disturbance, mood disturbance, and anxiety; M19.90 Unspecified osteoarthritis, unspecified site; E78.5 Hyperlipidemia, unspecified; F32.9 Major depressive disorder, single episode, unspecified; B96.20 Unspecified Escherichia coli [E. coli] as the cause of diseases classified elsewhere; F41.9 Anxiety disorder, unspecified; Z79.82 Long term (current) use of aspirin; Z79.899 Other long term (current) drug therapy; Z79.4 Long term (current) use of insulin; Z78.1 Physical restraint status; Z86.73 Personal history of transient ischemic attack (TIA), and cerebral infarction without residual deficits; Z87.81 Personal history of (healed) traumatic fracture; Z23 Encounter for immunization
CPT/HCPCS: 01230; 36415; 70450; 71010; 72125; 80048; 80053; 81001; 82550; 82553; 84484; 85025; 85610; 85730; 87040; 87086; 87088; 87186; 90471; 90715; 93005; 93010; 99285; G8978-GP; G8979-GP; G8987-GO; G8988-GO; J0696; J1100; J1644; J2250; J2405; J2704; J3010; J3490

== ENCOUNTER 2016-11-04 14:10 | Emergency (ER) | payer MEDICARE ==
[2016-11-04 14:29] VITALS: BP 128/83
[2016-11-04] MEDS ORDERED: NORMAL SALINE 1000 ML 1,000 ML IV ONE (16:27)
--- NOTE | 2016-11-04 16:29 | ER Document Report ---
ED Medical Screen (RME) - General Chief Complaint: Urinary Problem Stated Complaint: URINARY PROBLEMS Time Seen by Provider: 11/04/16 16:27 Notes: Patient is sent to the emergency department for urinary tract infection. Apparently patient is also been hallucinating at the [facility]. Her son states that this is normal for her and she has been hallucinating for a year so he does not believe this is due to the urinary tract infection. He states he is not sure that she needed to be seen but the primary care physician stated that she was to be sent to the emergency department. Patient has dementia and denies any current problems. TRAVEL OUTSIDE OF THE [place] IN LAST 30 DAYS: No - Related Data Allergies/Adverse Reactions: No Known Allergies Allergy (Verified 11/04/16 14:28) Past Medical History - Past Medical History Cardiac Medical History: Reports: Hx Hypercholesterolemia Denies: Hx Heart Attack, Hx Hypertension Pulmonary Medical History: Denies: Hx Asthma Neurological Medical History: Denies: Hx Cerebrovascular Accident, Hx Seizures Renal/ Medical History: Denies: Hx Peritoneal Dialysis GI Medical History: Denies: Hx Hepatitis, Hx Hiatal Hernia, Hx Ulcer Musculoskeltal Medical History: Reports Hx Arthritis Psychiatric Medical History: Reports: Hx Depression - anxiety Infectious Medical History: Denies: Hx Hepatitis Past Surgical History: Reports: Hx Orthopedic Surgery - Intramedullary nailing of the left hip Fracture. Denies: Hx Hysterectomy, Hx Mastectomy, Hx Open Heart Surgery, Hx Pacemaker Physical Exam - Vital signs Vitals: Temp Pulse Resp BP Pulse Ox 98.5 F 101 H 18 128/83 H 94 11/04/16 14:25 11/04/16 14:25 11/04/16 14:25 11/04/16 14:25 11/04/16 14:25 Course - Vital Signs Vital signs: Temp Pulse Resp BP Pulse Ox 98.5 F 101 H 18 128/83 H 94 11/04/16 14:25 11/04/16 14:25 11/04/16 14:25 11/04/16 14:25 11/04/16 14:25
[2016-11-04 17:31] LABS: ABSOLUTE BASOPHILS # (AUTO) 0.1 10^3/uL (0.0-0.2); ABSOLUTE EOSINOPHILS # (AUTO) 0.2 10^3/uL (0.0-0.6); ABSOLUTE LYMPHOCYTES (AUTO) 2.1 10^3/uL (0.5-4.7); ABSOLUTE MONOCYTES (AUTO) 0.7 10^3/uL (0.1-1.4); BASOPHILS % (AUTO) 0.7 % (0-2); EOSINOPHILS % (AUTO) 1.8 % (0-6); HEMATOCRIT 42.7 % (36.0-47.0); HEMOGLOBIN 14.3 g/dL (12.0-15.5); HGB HCT DIFFERENCE 0.2; LYMPHOCYTES % (AUTO) 23.3 % (13-45); MEAN CORPUSCULAR HEMOGLOBIN 29.8 pg (27.0-33.4); MEAN CORPUSCULAR HGB CONC 33.6 g/dL (32.0-36.0); MEAN CORPUSCULAR VOLUME 89 fl (80-97); MONOCYTES % (AUTO) 7.9 % (3-13); RED CELL DISTRIBUTION WIDTH 16.7 % (11.5-14.0); SEGMENTED NEUTROPHILS % (AUTO) 66.3 % (42-78); WHITE BLOOD COUNT 9.1 10^3/uL (4.0-10.5)
[2016-11-04 17:33] LABS: VENOUS BLOOD BASE EXCESS 3.1 mmol/L; VENOUS BLOOD HCO3 29.4 mmol/L (20-32); VENOUS BLOOD PH 7.38 (7.30-7.42)
[2016-11-04 17:36] LABS: PROTHROMBIN TIME 12.8 SEC (11.4-15.4)
[2016-11-04 18:01] LABS: ALANINE AMINOTRANSFERASE 32 U/L (9-52); ALBUMIN 4.2 g/dL (3.5-5.0); ALKALINE PHOSPHATASE 127 U/L (38-126); ANION GAP 9 (5-19); ASPARTATE AMINO TRANSFERASE 27 U/L (14-36); BILIRUBIN,DIRECT 0.3 mg/dL (0.0-0.4); BILIRUBIN,TOTAL 0.9 mg/dL (0.2-1.3); BLOOD UREA NITROGEN 22 mg/dL (7-20); CALCIUM 9.9 mg/dL (8.4-10.2); CARBON DIOXIDE 29 mmol/L (22-30); CHLORIDE 103 mmol/L (98-107); CREATININE RESULT 0.67 mg/dL (0.52-1.25); GLUCOSE 89 mg/dL (75-110); POTASSIUM 4.6 mmol/L (3.6-5.0); SODIUM 141.3 mmol/L (137-145); TOTAL PROTEIN 7.6 g/dL (6.3-8.2)
[2016-11-04] MEDS ORDERED: CEPHALEXIN 500 MG CAPSULE PO ONE (18:35)
--- NOTE | 2016-11-04 18:39 | ER Document Report ---
ED General - General Chief Complaint: Urinary Problem Stated Complaint: URINARY PROBLEMS Time Seen by Provider: 11/04/16 16:27 Cannot obtain history due to: Dementia Notes: Patient is an 86-year-old female with dementia who presents from the nursing facility with concerns of a urinary tract infection. Urinalysis was done 2 days ago and urine cultures did return positive for gram-negative rods as well as gram-positive cocci in clusters. She has not had any additional symptoms and is demented at baseline often with visual hallucinations which her family member at the bedside states is her baseline. The family member the bedside is uncertain of why she was transferred to the emergency department. She has had urinary tract infections in the past. History is otherwise limited secondary to patient's profound dementia. TRAVEL OUTSIDE OF THE [place] IN LAST 30 DAYS: No - Related Data Allergies/Adverse Reactions: No Known Allergies Allergy (Verified 11/04/16 14:28) Past Medical History - General Information source: Relative, Transfer Record Cannot obtain history due to: Dementia - Social History Smoking Status: Unknown if Ever Smoked Chew tobacco use (# tins/day): Yes Frequency of alcohol use: None Drug Abuse: None Lives with: [facility] Family History: Hypertension - Past Medical History Cardiac Medical History: Reports: Hx Hypercholesterolemia Denies: Hx Heart Attack, Hx Hypertension Pulmonary Medical History: Denies: Hx Asthma Neurological Medical History: Denies: Hx Cerebrovascular Accident, Hx Seizures Renal/ Medical History: Denies: Hx Peritoneal Dialysis GI Medical History: Denies: Hx Hepatitis, Hx Hiatal Hernia, Hx Ulcer Musculoskeltal Medical History: Reports Hx Arthritis Psychiatric Medical History: Reports: Hx Depression - anxiety Infectious Medical History: Denies: Hx Hepatitis Past Surgical History: Reports: Hx Orthopedic Surgery - Intramedullary nailing of the left hip Fracture. Denies: Hx Hysterectomy, Hx Mastectomy, Hx Open Heart Surgery, Hx Pacemaker - Immunizations Hx Pneumococcal Vaccination: 02/15/11 Review of Systems - Review of Systems Notes: Constitutional: Negative for fever. HENT: Negative for sore throat. Eyes: Negative for visual changes. Cardiovascular: Negative for chest pain. Respiratory: Negative for shortness of breath. Gastrointestinal: Negative for abdominal pain, vomiting or diarrhea. Genitourinary: Negative for dysuria. Musculoskeletal: Negative for back pain. Skin: Negative for rash. Neurological: Negative for headaches, weakness or numbness. 10 point ROS negative except as marked above and in HPI. Physical Exam - Vital signs Vitals: Temp Pulse Resp BP Pulse Ox 98.5 F 101 H 18 128/83 H 94 11/04/16 14:25 11/04/16 14:25 11/04/16 14:25 11/04/16 14:25 11/04/16 14:25 Interpretation: Tachycardic - Resolved at the time of my assessment. Notes: PHYSICAL EXAMINATION: GENERAL: Frail, cachectic female patient in no acute distress HEAD: Atraumatic, normocephalic. EYES: Pupils equal round and reactive to light, extraocular movements intact, sclera anicteric, conjunctiva are normal. ENT: nares patent, oropharynx clear without exudates. Moist mucous membranes. NECK: Normal range of motion, supple without lymphadenopathy LUNGS: Breath sounds clear to auscultation bilaterally and equal. No wheezes rales or rhonchi. HEART: Regular rate and rhythm without murmurs ABDOMEN: Soft, nontender, normoactive bowel sounds. No guarding, no rebound. No masses appreciated. EXTREMITIES: Normal range of motion, no pitting or edema. No cyanosis. NEUROLOGICAL: No focal neurological deficits. Moves all extremities spontaneously and on command. PSYCH: Demented, oriented only to person. SKIN: Warm, Dry, normal turgor, no rashes or lesions noted. Course - Re-evaluation Re-evalutation: 11/04/16 18:37 Patient presents at the request of the physician at her assisted living facility with concerns of a urinary tract infection. The exact indication for transfer the emergency department is unclear. Apparently the son was notified that this was "a precaution". Patient needs no sepsis criteria. She is at her baseline per her son, demented and confused at baseline. She has no focal abdominal tenderness. No loose acute leukocytosis on labs. No significant dehydration. I do not see an indication to repeat a catheterized specimen here as patient really has culture results from the nursing facility. I will initiate cephalexin. At this time will discharge with return precautions and follow-up recommendations. Verbal discharge instructions given a the bedside and opportunity for questions given. Medication warnings reviewed. Patient is in agreement with this plan and has verbalized understanding of return precautions and the need for primary care follow-up in the next 24-72 hours. - Vital Signs Vital signs: Temp Pulse Resp BP Pulse Ox 98.5 F 101 H 18 128/83 H 94 11/04/16 14:25 11/04/16 14:25 11/04/16 14:25 11/04/16 14:25 11/04/16 14:25 - Laboratory Result Diagrams: 11/04/16 17:05 11/04/16 17:05 Laboratory results interpreted by me: 11/04/16 11/04/16 17:05 17:05 RDW 16.7 H BUN 22 H Alkaline Phosphatase 127 H Discharge - Discharge Clinical Impression: UTI (urinary tract infection) Qualifiers: Urinary tract infection type: acute cystitis Hematuria presence: without hematuria Qualified Code(s): N30.00 - Acute cystitis without hematuria Condition: Stable Disposition: HOME, SELF-CARE Additional Instructions: Your urine from the assisted living suggest that you have a urinary tract infection. Please take all the antibiotics as directed even if your symptoms have improved. Please follow-up with your primary care physician as needed. Return to emergency room if you develop fever >101F, persistent vomiting, become lethargic, have severe pain in your sides, or any other symptoms that are concerning to you. Prescriptions: Cephalexin Monohydrate [Keflex 500 mg Capsule] 500 mg PO Q6H 5 Days capsule
--- NOTE | 2016-11-04 18:46 | EKG REPORT ---
SEVERITY:- OTHERWISE NORMAL ECG - SINUS RHYTHM BORDERLINE LEFT AXIS DEVIATION : Confirmed by: Campbell Smith MD 04-Nov-2016 18:45:43
== END 2016-11-04 18:58 | disposition home or self-care (01) ==
LOC: ER 14:10
DX: N30.00 Acute cystitis without hematuria (principal); R39.198 Other difficulties with micturition
CPT/HCPCS: 93005; 99284; 96360; 36415; 87040; 82962; 85025; 85610; 80053; 82803; 83605; 93010; A9270; J7030

== ENCOUNTER → 2017-08-13 | Outpatient (CLI) | payer MEDICARE ==
[2017-08-13 10:12] LABS: ALANINE AMINOTRANSFERASE 19 U/L (9-52); ALBUMIN 3.9 g/dL (3.5-5.0); ALKALINE PHOSPHATASE 89 U/L (38-126); ANION GAP 12 (5-19); ASPARTATE AMINO TRANSFERASE 23 U/L (14-36); BILIRUBIN,DIRECT 0.3 mg/dL (0.0-0.4); BILIRUBIN,TOTAL 0.6 mg/dL (0.2-1.3); BLOOD UREA NITROGEN 18 mg/dL (7-20); CALCIUM 9.5 mg/dL (8.4-10.2); CARBON DIOXIDE 29 mmol/L (22-30); CHLORIDE 105 mmol/L (98-107); GLUCOSE 83 mg/dL (75-110); POTASSIUM 4.5 mmol/L (3.6-5.0); SODIUM 145.6 mmol/L (137-145); TOTAL PROTEIN 6.9 g/dL (6.3-8.2)
[2017-08-13 11:13] LABS: HEMATOCRIT 42.8 % (36.0-47.0); HEMOGLOBIN 14.4 g/dL (12.0-15.5); MEAN CORPUSCULAR HEMOGLOBIN 31.6 pg (27.0-33.4); MEAN CORPUSCULAR HGB CONC 33.6 g/dL (32.0-36.0); MEAN CORPUSCULAR VOLUME 94 fl (80-97); PLATELET COUNT 243 10^3/uL (150-450); RED BLOOD COUNT 4.54 10^6/uL (3.72-5.28); RED CELL DISTRIBUTION WIDTH 13.6 % (11.5-14.0); WHITE BLOOD COUNT 8.3 10^3/uL (4.0-10.5)
== END ==
LOC: OD 08:34
PROVIDERS: ATTEND Family Medicine
DX: R41.82 Altered mental status, unspecified (principal); Z13.228 Encounter for screening for other metabolic disorders
CPT/HCPCS: 36415; 80053; 85027

== ENCOUNTER 2017-10-21 08:27 | Emergency (ER) | payer MEDICARE ==
[2017-10-21] MEDS ORDERED: ACETAMINOPHEN 325 MG TABLET ONE (09:11)
[2017-10-21 09:25] LABS: ABSOLUTE LYMPHOCYTES (AUTO) 0.9 10^3/uL (0.5-4.7); ABSOLUTE NEUT (AUTO) 12.3 10^3/uL (1.7-8.2); BASOPHILS % (AUTO) 0.2 % (0-2); EOSINOPHILS % (AUTO) 0.2 % (0-6); HEMATOCRIT 40.1 % (36.0-47.0); HEMOGLOBIN 13.3 g/dL (12.0-15.5); LYMPHOCYTES % (AUTO) 6.2 % (13-45); MEAN CORPUSCULAR HEMOGLOBIN 31.5 pg (27.0-33.4); MEAN CORPUSCULAR HGB CONC 33.3 g/dL (32.0-36.0); MEAN CORPUSCULAR VOLUME 95 fl (80-97); MONOCYTES % (AUTO) 6.7 % (3-13); PLATELET COUNT 271 10^3/uL (150-450); RED BLOOD COUNT 4.24 10^6/uL (3.72-5.28); RED CELL DISTRIBUTION WIDTH 13.3 % (11.5-14.0); SEGMENTED NEUTROPHILS % (AUTO) 86.7 % (42-78); TOTAL CELLS COUNTED % (AUTO) 100 %; WHITE BLOOD COUNT 14.2 10^3/uL (4.0-10.5)
[2017-10-21] MEDS ORDERED: IPRATROPIUM/ALBUTEROL 0.5-2.5 MG/3 ML AMPUL NEB ONE (09:35)
[2017-10-21] MEDS ORDERED: LIDOCAINE 4%/TETRACAINE 0.5%/EPI 0.18% 5 ML TOPICAL SOLN ONE (09:36)
[2017-10-21] MEDS ORDERED: DIPH/PERTUSS(ACELL)/TETANUS VAC/PF 0.5 ML SYR (>=10YO) IM ONE (09:36)
[2017-10-21 09:55] LABS: ALANINE AMINOTRANSFERASE 24 U/L (9-52); ALBUMIN 3.6 g/dL (3.5-5.0); ALKALINE PHOSPHATASE 87 U/L (38-126); ANION GAP 10 (5-19); ASPARTATE AMINO TRANSFERASE 24 U/L (14-36); BILIRUBIN,DIRECT 0.3 mg/dL (0.0-0.4); BILIRUBIN,TOTAL 0.9 mg/dL (0.2-1.3); BLOOD UREA NITROGEN 13 mg/dL (7-20); CALCIUM 9.3 mg/dL (8.4-10.2); CARBON DIOXIDE 29 mmol/L (22-30); CHLORIDE 103 mmol/L (98-107); CREATINE KINASE 220 U/L (30-135); GLUCOSE 90 mg/dL (75-110); SODIUM 142.1 mmol/L (137-145); TOTAL PROTEIN 6.8 g/dL (6.3-8.2)
[2017-10-21 10:01] LABS: APPEARANCE,URINE CLEAR; BILIRUBIN,URINE NEGATIVE (NEGATIVE); COLOR,URINE YELLOW; GLUCOSE, URINE NEGATIVE (NEGATIVE); KETONES,URINE NEGATIVE (NEGATIVE); PROTEIN,URINE NEGATIVE (NEGATIVE); URINE SPECIFIC GRAVITY 1.015
[2017-10-21 10:02] LABS: ADD MANUAL MICROSCOPIC YES; BACTERIA,URINE TRACE /HPF; LEUKOCYTE ESTERASE,URINE TRACE (NEGATIVE); NITRITE,URINE NEGATIVE (NEGATIVE); UROBILINOGEN,URINE NEGATIVE mg/dL (<2.0)
[2017-10-21 10:06] LABS: CREATINE KINASE MB 1.98 ng/mL (<4.55); TROPONIN I 0.014 ng/mL
--- NOTE | 2017-10-21 10:27 | RADIOLOGY REPORT (SQ) ---
EXAM DESCRIPTION: CT HEAD WITHOUT COMPLETED DATE/TIME: 10/21/2017 10:00 am REASON FOR STUDY: FALL, COUGH COMPARISON: CT brain 05/31/2016, 01/28/2016, 05/27/2012 TECHNIQUE: Axial images acquired through the brain without intravenous contrast. Images reviewed wi th bone, brain and subdural windows. Additional sagittal and coronal reconstructions were generated. Images stored on PACS. All CT scanners at this facility use dose modulation, iterative reconstruction, and/or weight based d osing when appropriate to reduce radiation dose to as low as reasonably achievable (ALARA). [facility]: Dose Right [facility]: CareDose [facility]: Dose Right [facility]: Teradose 4D [facility]: Visible[employer]ands RADIATION DOSE: CT Rad equipment meets quality standard of care and radiation dose reduction techniq ues were employed. CTDIvol: 53.2 mGy. DLP: 1097 mGy-cm. mGy. LIMITATIONS: Motion artifact on some of the images FINDINGS: On images without motion artifact, there is no gross acute large territory ischemic change , acute intracranial hemorrhage, mass effect, or midline shift. Moderate bifrontal and biparietal small vessel chronic ischemic change in the deep hemispheric white matter. No gross calvarial fracture or CT signs of acute sinusitis IMPRESSION: Motion artifact. No acute findings. Limited study EVIDENCE OF ACUTE STROKE: NO. COMMENT: Quality ID # [id number]: Final reports with documentation of one or more dose reduction techniques (e.g., Automated exposure control, adjustment of the mA and/or kV according to patient size, use of iterative reconstruction technique) TECHNICAL DOCUMENTATION: JOB ID: [id number] [employer]- All Rights Reserved Reading location - IP/workstation name: [email or web address]
--- NOTE | 2017-10-21 10:49 | RADIOLOGY REPORT (SQ) ---
EXAM DESCRIPTION: PELVIS AP COMPLETED DATE/TIME: 10/21/2017 10:36 am REASON FOR STUDY: FALL, COUGH COMPARISON: Hip films 06/04/2016, 05/31/2016 NUMBER OF VIEWS: One view TECHNIQUE: AP Pelvis LIMITATIONS: None. FINDINGS: MINERALIZATION: Osteoporotic HIPS: No acute fracture or dislocation. Right hip lag screw and intramedullary nail along a healed i ntertrochanteric fracture. Left lag screw and long intramedullary nail for healed left intertrochant rick fracture. PELVIS AND SACRUM: Old left superior and inferior pubic ramus healed fractures. Old healed left sacr al ala fracture PUBIS AND ISCHIUM: No acute fracture. LOWER LUMBAR SPINE: Advanced facet arthropathy L4-5 and L5-S1 SOFT TISSUES: No findings. OTHER: No other significant finding. IMPRESSION: Osteoporotic. Old healed bilateral intertrochanteric fractures, left superior and infer ior pubic ramus fracture, left sacral ala fracture. TECHNICAL DOCUMENTATION: JOB ID: [id number] [employer]- All Rights Reserved Reading location - IP/workstation name: [email or web address]
--- NOTE | 2017-10-21 10:51 | RADIOLOGY REPORT (SQ) ---
EXAM DESCRIPTION: CHEST 2 VIEWS COMPLETED DATE/TIME: 10/21/2017 10:36 am REASON FOR STUDY: FALL, COUGH COMPARISON: AP chest 05/31/2016, 05/24/2012 EXAM PARAMETERS: NUMBER OF VIEWS: two views TECHNIQUE: Digital Frontal and Lateral radiographic views of the chest acquired. RADIATION DOSE: NA LIMITATIONS: none FINDINGS: LUNGS AND PLEURA: Mild pulmonary vascular prominence without alveolar or interstitial jody a. No pleural effusion or pneumothorax. MEDIASTINUM AND HILAR STRUCTURES: No masses or contour abnormalities. HEART AND VASCULAR STRUCTURES: Heart normal size. No evidence for failure. BONES: Old healed right lower lateral rib fractures HARDWARE: None in the chest. OTHER: No other significant finding. IMPRESSION: No acute findings TECHNICAL DOCUMENTATION: JOB ID: [id number] [employer]- All Rights Reserved Reading location - IP/workstation name: [email or web address]
[2017-10-21] MEDS ORDERED: ALBUTEROL SULFATE 0.083% NEB 2.5 MG/3 ML AMPUL NEB ONE (11:07)
[2017-10-21] MEDS ORDERED: LIDOCAINE 1%/EPINEPHRINE INJ 20 ML VIAL INJ ONE (11:07)
--- NOTE | 2017-10-21 11:31 | RADIOLOGY REPORT (SQ) ---
EXAM DESCRIPTION: ELBOW RIGHT OVER 2 VIEWS; ELBOW RIGHT AP/LAT COMPLETED DATE/TIME: 10/21/2017 11:09 am; 10/21/2017 10:36 am REASON FOR STUDY: fall, elbow injury; FALL, COUGH COMPARISON: None. NUMBER OF VIEWS: Four views. TECHNIQUE: AP, lateral, and both oblique radiographic images acquired of the right elbow. LIMITATIONS: Initial two-view elbow films were nondiagnostic. Repeat lateral film, with internal an d external oblique images were obtained. FINDINGS: MINERALIZATION: Osteopenic BONES: No acute fracture or dislocation. No worrisome bone lesions. JOINT: No effusion. SOFT TISSUES: No soft tissue swelling. No foreign body. OTHER: No other significant finding. IMPRESSION: No elbow joint effusion. No acute displaced fracture. TECHNICAL DOCUMENTATION: JOB ID: [id number] [employer]- All Rights Reserved Reading location - IP/workstation name: [email or web address]
--- NOTE | 2017-10-21 11:31 | RADIOLOGY REPORT (SQ) ---
EXAM DESCRIPTION: ELBOW RIGHT OVER 2 VIEWS; ELBOW RIGHT AP/LAT COMPLETED DATE/TIME: 10/21/2017 11:09 am; 10/21/2017 10:36 am REASON FOR STUDY: fall, elbow injury; FALL, COUGH COMPARISON: None. NUMBER OF VIEWS: Four views. TECHNIQUE: AP, lateral, and both oblique radiographic images acquired of the right elbow. LIMITATIONS: Initial two-view elbow films were nondiagnostic. Repeat lateral film, with internal an d external oblique images were obtained. FINDINGS: MINERALIZATION: Osteopenic BONES: No acute fracture or dislocation. No worrisome bone lesions. JOINT: No effusion. SOFT TISSUES: No soft tissue swelling. No foreign body. OTHER: No other significant finding. IMPRESSION: No elbow joint effusion. No acute displaced fracture. TECHNICAL DOCUMENTATION: JOB ID: [id number] [employer]- All Rights Reserved Reading location - IP/workstation name: [email or web address]
--- NOTE | 2017-10-21 11:51 | ER Document Report ---
ED Fall - General Chief Complaint: Fall Injury Mode of Arrival: Medic Information source: Patient, Relative Cannot obtain history due to: Dementia Notes: Patient was evaluated at 07:32 Patient is a wheelchair-bound patient in an assisted living. Patient had fallen this morning but family is uncertain when she may have fallen. Patient with laceration to occipital scalp. There has not been any vomiting. Patient has been at her baseline mental status per family member. Patient has had a cough for the past 3 days. Daughter does state the patient has a history of attempting to get up and ambulate and has fallen in the past. TRAVEL OUTSIDE OF THE [place] IN LAST 30 DAYS: No - HPI Occurred: This morning Where: Other - assisted living Associated symptoms: None Location of injury/pain: Head Quality of pain: Achy Pain Level: 2 - Related data Allergies/Adverse Reactions: No Known Allergies Allergy (Verified 11/04/16 14:28) Past Medical History - General Information source: Patient, Relative - Social History Smoking Status: Never Smoker Lives with: [facility] Family History: Hypertension - Past Medical History Cardiac Medical History: Reports: Hx Hypercholesterolemia Denies: Hx Heart Attack, Hx Hypertension Pulmonary Medical History: Denies: Hx Asthma Neurological Medical History: Denies: Hx Cerebrovascular Accident, Hx Seizures Renal/ Medical History: Denies: Hx Peritoneal Dialysis GI Medical History: Denies: Hx Hepatitis, Hx Hiatal Hernia, Hx Ulcer Musculoskeletal Medical History: Reports Hx Arthritis Psychiatric Medical History: Reports: Hx Anxiety, Hx Depression Infectious Medical History: Denies: Hx Hepatitis Past Surgical History: Reports: Hx Herniorrhaphy, Hx Hysterectomy, Hx Orthopedic Surgery - Intramedullary nailing of the left hip Fracture. Denies: Hx Mastectomy, Hx Open Heart Surgery, Hx Pacemaker - Immunizations Hx Pneumococcal Vaccination: 02/15/11 Review of Systems - Review of Systems -: Yes ROS unobtainable due to patient's medical condition Constitutional: denies: Fever, Recent illness Respiratory: Cough Skin: Other - lac Physical Exam - General General appearance: Appears well, Alert In distress: None - HEENT Head: Other - occipital lac. No: Abrasions, Greene's sign, Ecchymosis, [place]' s eyes Pupils: PERRL Nasal: Normal Mouth/Lips: Normal Mucous membranes: Normal Neck: Normal, Supple. No: Lymphadenopathy - Respiratory Respiratory status: No respiratory distress Chest status: Nontender Breath sounds: Nonproductive cough, Rhonchi - occasional. No: Rales, Stridor, Wheezing Chest palpation: Normal - Cardiovascular Rhythm: Regular Heart sounds: S1 appreciated, S2 appreciated - Abdominal Inspection: Normal Distension: No distension Bowel sounds: Normal Tenderness: Nontender - Back Back: Normal, Nontender. No: CVA tenderness, Vertebra tenderness - Extremities General upper extremity: Normal ROM, Other - ecchymosis to r elbow General lower extremity: Normal inspection, Normal ROM Elbow: Nontender, Ecchymosis. No: Deformity, Limited ROM Hip: Normal, Nontender Thigh: Normal, Nontender Knee: Normal, Nontender - Neurological Cognition: Confused - occasional [place] Coma Scale Eye Opening: Spontaneous [place] Coma Scale Verbal: Confused Victor M Coma Scale Motor: Obeys Commands [place] Coma Scale Total: 14 - Psychological Associated symptoms: Normal affect - Skin Skin Temperature: Warm Skin Moisture: Dry Skin irregularity: Laceration - occiptal scalp Course - Re-evaluation Re-evalutation: 10/21/17 11:50 son at bedside, updated regarding plan of care. Wound closed with rashel. Pt awaiting lab redraw. 10/21/17 13:44 Patient initially presented with tachycardia rhonchorous cough with a leukocytosis of 14,000. Patient does have findings worrisome for pneumonia despite x-ray not showing pneumonia at this time. Will cover with antibiotics and encourage patient to have a repeat chest x-ray to follow today's visit. Patient without any chest pain symptoms, patient with negative troponin at this time. No concern for intracranial hemorrhage. Will plan for discharge with follow-up with primary doctor for recheck. - Laboratory Result Diagrams: 10/21/17 08:43 10/21/17 08:43 Laboratory results interpreted by me: 10/21/17 10/21/17 10/21/17 08:43 08:43 08:49 WBC 14.2 H Seg Neutrophils % 86.7 H Lymphocytes % 6.2 L Absolute Neutrophils 12.3 H Creatine Kinase 220 H Ur Leukocyte Esterase TRACE H 10/21/17 13:46 Labs- Entire Visit 10/21/17 10/21/17 10/21/17 08:43 08:43 08:43 WBC 14.2 H RBC 4.24 Hgb 13.3 Hct 40.1 MCV 95 MCH 31.5 MCHC 33.3 RDW 13.3 Plt Count 271 Seg Neutrophils % 86.7 H Lymphocytes % 6.2 L Monocytes % 6.7 Eosinophils % 0.2 Basophils % 0.2 Absolute Neutrophils 12.3 H Absolute Lymphocytes 0.9 Absolute Monocytes 1.0 Absolute Eosinophils 0.0 Absolute Basophils 0.0 Sodium 142.1 Potassium 4.0 Chloride 103 Carbon Dioxide 29 Anion Gap 10 BUN 13 Creatinine 0.69 Est GFR ( Amer) > 60 Est GFR (Non-Af Amer) > 60 Glucose 90 Calcium 9.3 Total Bilirubin 0.9 Direct Bilirubin 0.3 Neonat Total Bilirubin Not Reportable Neonat Direct Bilirubin Not Reportable Neonat Indirect Bili Not Reportable AST 24 ALT 24 Alkaline Phosphatase 87 Creatine Kinase 220 H CK-MB (CK-2) 1.98 Troponin I 0.014 Total Protein 6.8 Albumin 3.6 Urine Color Urine Appearance Urine pH Ur Specific [place] Urine Protein Urine Glucose (UA) Urine Ketones Urine Blood Urine Nitrite Urine Bilirubin Urine Urobilinogen Ur Leukocyte Esterase Urine WBC Urine Bacteria Urine Ascorbic Acid 10/21/17 10/21/17 08:49 12:14 WBC RBC Hgb Hct MCV MCH MCHC RDW Plt Count Seg Neutrophils % Lymphocytes % Monocytes % Eosinophils % Basophils % Absolute Neutrophils Absolute Lymphocytes Absolute Monocytes Absolute Eosinophils Absolute Basophils Sodium Potassium Chloride Carbon Dioxide Anion Gap BUN Creatinine Est GFR ( Amer) Est GFR (Non-Af Amer) Glucose Calcium Total Bilirubin Direct Bilirubin Neonat Total Bilirubin Neonat Direct Bilirubin Neonat Indirect Bili AST ALT Alkaline Phosphatase Creatine Kinase CK-MB (CK-2) Troponin I 0.016 Total Protein Albumin Urine Color YELLOW Urine Appearance CLEAR Urine pH 6.0 Ur Specific [place] 1.015 Urine Protein NEGATIVE Urine Glucose (UA) NEGATIVE Urine Ketones NEGATIVE Urine Blood NEGATIVE Urine Nitrite NEGATIVE Urine Bilirubin NEGATIVE Urine Urobilinogen NEGATIVE Ur Leukocyte Esterase TRACE H Urine WBC 5-10 Urine Bacteria TRACE Urine Ascorbic Acid NEGATIVE - Diagnostic Test Radiology reviewed: Reports reviewed Procedures - Laceration/Wound Repair Head Wound length (cm): 4 Wound's Depth, Shape: Irregular Laceration pre-procedure: Shur-Clens applied Anesthetic type: 1% Lidocaine w/epi Wound explored: Clean Wound Repaired With: Rashel Number of Sutures: 6 Layer Closure?: No Post-procedure NV exam normal: Yes Complications: No Discharge - Discharge Clinical Impression: Dementia Qualifiers: Dementia type: unspecified type Dementia behavioral disturbance: without behavioral disturbance Qualified Code(s): F03.90 - Unspecified dementia without behavioral disturbance Fall at [facility] Qualifiers: Encounter type: initial encounter Qualified Code(s): W19.XXXA - Unspecified fall, initial encounter Pneumonia Qualifiers: Pneumonia type: due to unspecified organism Laterality: unspecified laterality Lung location: unspecified part of lung Qualified Code(s): J18.9 - Pneumonia, unspecified organism Scalp laceration Qualifiers: Encounter type: initial encounter Qualified Code(s): S01.01XA - Laceration without foreign body of scalp, initial encounter Condition: Stable Disposition: HOME, SELF-CARE Instructions: Doxycycline ([facility]), Pneumonia ([facility]), Rocephin ([facility]), Scalp Laceration ([facility]), Care of Stapled Wounds ([facility]), Tetanus Immunization Given ([facility]) Additional Instructions: Return immediately for any new or worsening symptoms Followup with your primary care provider, call tomorrow to make a followup appointment, you will need a repeat chest x ray to follow up todays visit. Staple removal in 7 days Prescriptions: Doxycycline Hyclate 100 mg PO BID #20 capsule Referrals: EZIO SHEPHERD MD [Primary Care Provider] - Follow up in 3-5 days
[2017-10-21] MEDS ORDERED: CEFTRIAXONE INJ 1000 MG VIAL IV ONE (12:01)
[2017-10-21] MEDS ORDERED: DOXYCYCLINE HYCLATE 100 MG TABLET PO ONE (13:48)
--- NOTE | 2017-10-22 13:17 | EKG REPORT ---
SEVERITY:- ABNORMAL ECG - SINUS TACHYCARDIA BORDERLINE LEFT AXIS DEVIATION : Confirmed by: Campbell Smith MD 22-Oct-2017 13:16:26
== END 2017-10-21 14:58 | disposition home or self-care (01) ==
LOC: ER 08:27
DX: S01.01XA Laceration without foreign body of scalp, initial encounter (principal); S50.01XA Contusion of right elbow, initial encounter; W19.XXXA Unspecified fall, initial encounter; Y92.129 Unspecified place in nursing home as the place of occurrence of the external cause; J18.9 Pneumonia, unspecified organism; R05 Cough; F03.90 Unspecified dementia, unspecified severity, without behavioral disturbance, psychotic disturbance, mood disturbance, and anxiety; Z99.3 Dependence on wheelchair
CPT/HCPCS: 93005; 99284; 90471; 96374; 36415; 87086; 82553; 82550; 85025; 80053; 81001; 84484; 71046; 73070; 73080; 72170; 70450; 93010; 12002; J3490

== ENCOUNTER 2017-11-05 15:41 | Emergency (ER) | payer MEDICARE ==
[2017-11-05 15:58] VITALS: BP 134/80
--- NOTE | 2017-11-05 15:58 | ER Document Report ---
ED Medical Screen (RME) - General Chief Complaint: Suture Removal Stated Complaint: SUTURE REMOVAL Time Seen by Provider: 11/05/17 15:53 Mode of Arrival: Wheelchair Information source: Patient, Legal Guardian Notes: Patient brought in for suture removal. She is an 87-year-old female who fell the other day and had sutures placed in the left occipital scalp. TRAVEL OUTSIDE OF THE [place] IN LAST 30 DAYS: No - HPI Onset: Last week Onset/Duration: Gradual Quality of pain: No pain Severity: None Pain Level: Denies Associated Symptoms: None Exacerbated by: Denies Relieved by: Denies Similar symptoms previously: No - Related Data Smoking: Non-smoker Frequency of alcohol use: None Drug Abuse: None Allergies/Adverse Reactions: No Known Allergies Allergy (Verified 11/04/16 14:28) Past Medical History - Past Medical History Cardiac Medical History: Reports: Hx Hypercholesterolemia Denies: Hx Heart Attack, Hx Hypertension Pulmonary Medical History: Denies: Hx Asthma Neurological Medical History: Denies: Hx Cerebrovascular Accident, Hx Seizures Renal/ Medical History: Denies: Hx Peritoneal Dialysis GI Medical History: Denies: Hx Hepatitis, Hx Hiatal Hernia, Hx Ulcer Musculoskeltal Medical History: Reports Hx Arthritis Psychiatric Medical History: Reports: Hx Anxiety, Hx Depression Infectious Medical History: Denies: Hx Hepatitis Past Surgical History: Reports: Hx Herniorrhaphy, Hx Hysterectomy, Hx Orthopedic Surgery - Intramedullary nailing of the left hip Fracture. Denies: Hx Mastectomy, Hx Open Heart Surgery, Hx Pacemaker Physical Exam - Vital signs Notes: Physical exam: GENERAL: 87-year-old female, alert, no acute distress HEAD: 6 rashel left occipital scalp. Wound looks well-healed. There is no erythema, pus drainage EYES: Pupils equal round and reactive to light, extraocular movements intact, sclera anicteric, conjunctiva are normal. ENT: Moist mucous membranes. NECK: Supple without obvious mass LUNGS: Breath sounds clear to auscultation bilaterally and equal. No wheezes rales or rhonchi. HEART: Regular rate and rhythm without murmurs, rubs or gallops. NEUROLOGICAL: Alert SKIN: Wound looks well-healed Course - Re-evaluation Re-evalutation: 11/05/17 15:57 Follow-up staple removal: Wound looks great. 6 rashel removed. Doctor's Discharge - Discharge Clinical Impression: Staple removal Condition: Stable Disposition: HOME, SELF-CARE Additional Instructions: Return to the emergency room for any increased redness, pus drainage around the wound site or any concerns he may be's infection. Referrals: EZIO SHEPHERD MD [Primary Care Provider] - Follow up as needed
--- NOTE | 2017-11-05 16:30 | ER Document Report ---
HPI - HPI Pain Level: Denies - REPRODUCTIVE Reproductive: DENIES: : Past Medical History - General Information source: Patient, Legal Guardian - Social History Smoking Status: Unknown if Ever Smoked Chew tobacco use (# tins/day): No Frequency of alcohol use: None Drug Abuse: None Family History: Hypertension Patient has suicidal ideation: No Patient has homicidal ideation: No - Past Medical History Cardiac Medical History: Reports: Hx Hypercholesterolemia Denies: Hx Heart Attack, Hx Hypertension Pulmonary Medical History: Denies: Hx Asthma Neurological Medical History: Denies: Hx Cerebrovascular Accident, Hx Seizures Renal/ Medical History: Denies: Hx Peritoneal Dialysis GI Medical History: Denies: Hx Hepatitis, Hx Hiatal Hernia, Hx Ulcer Musculoskeletal Medical History: Reports Hx Arthritis Psychiatric Medical History: Reports: Hx Anxiety, Hx Depression Infectious Medical History: Denies: Hx Hepatitis Past Surgical History: Reports: Hx Herniorrhaphy, Hx Hysterectomy, Hx Orthopedic Surgery - Intramedullary nailing of the left hip Fracture. Denies: Hx Mastectomy, Hx Open Heart Surgery, Hx Pacemaker - Immunizations Hx Pneumococcal Vaccination: 02/15/11 Vertical Provider Document - INFECTION CONTROL TRAVEL OUTSIDE OF THE [place] IN LAST 30 DAYS: No Course - Vital Signs Vital signs: Temp Pulse Resp BP Pulse Ox 98.8 F 100 20 134/80 H 93 11/05/17 15:50 11/05/17 15:50 11/05/17 15:50 11/05/17 15:50 11/05/17 15:50 Discharge - Discharge Clinical Impression: Staple removal Condition: Stable Disposition: HOME, SELF-CARE Additional Instructions: Return to the emergency room for any increased redness, pus drainage around the wound site or any concerns he may be's infection. Referrals: EZIO SHEPHERD MD [Primary Care Provider] - Follow up as needed
== END 2017-11-05 16:02 | disposition home or self-care (01) ==
LOC: ER 15:41
DX: S01.01XD Laceration without foreign body of scalp, subsequent encounter (principal); X58.XXXD Exposure to other specified factors, subsequent encounter

== ENCOUNTER → 2018-04-01 | Outpatient (CLI) | payer MEDICARE ==
[2018-04-01 16:04] LABS: HEMATOCRIT 39.2 % (36.0-47.0); HEMOGLOBIN 12.9 g/dL (12.0-15.5); MEAN CORPUSCULAR HEMOGLOBIN 30.9 pg (27.0-33.4); MEAN CORPUSCULAR VOLUME 94 fl (80-97); PLATELET COUNT 253 10^3/uL (150-450); RED BLOOD COUNT 4.18 10^6/uL (3.72-5.28); RED CELL DISTRIBUTION WIDTH 14.2 % (11.5-14.0); WHITE BLOOD COUNT 7.2 10^3/uL (4.0-10.5)
== END ==
LOC: OD 14:55
PROVIDERS: ATTEND Family Medicine
DX: J06.9 Acute upper respiratory infection, unspecified (principal)
CPT/HCPCS: 36415; 85027

== ENCOUNTER 2018-07-23 16:16 | Emergency (ER) | payer MEDICARE ==
--- NOTE | 2018-07-23 17:48 | ER Document Report ---
ED Medical Screen (RME) - General Chief Complaint: Laceration Stated Complaint: FALL/HEAD PAIN Time Seen by Provider: 07/23/18 17:33 Primary Care Provider: EZIO SHEPHERD MD [Primary Care Provider] - Follow up as needed Notes: Patient is a 87-year-old female history of dementia presents to the emergency department with a laceration on the scalp. Patient's son is in the room with her stating that they placed her in bed. States she was trying to get up out of bed and potentially fall on the floor. Son states he found the patient on the ground. Son is unsure of any loss of consciousness but has denied any vomiting since incident. Son states he feels as though the patient is acting appropriately with her dementia baseline. GENERAL: Alert, interacts well. No acute distress. HEAD: Normocephalic, dried blood matted hair right side of scalp, no active bleeding I have greeted and performed a rapid initial assessment of this patient. A comprehensive ED assessment and evaluation of the patient, analysis of test results and completion of the medical decision making process will be conducted by additional ED providers. This medical record was dictated with voice recognizing software. There may be grammatical, syntax errors that are unintended. TRAVEL OUTSIDE OF THE [place] IN LAST 30 DAYS: No - Related Data Allergies/Adverse Reactions: No Known Allergies Allergy (Verified 07/23/18 16:17) Past Medical History - Social History Frequency of alcohol use: None Drug Abuse: None - Past Medical History Cardiac Medical History: Reports: Hx Hypercholesterolemia Denies: Hx Heart Attack, Hx Hypertension Pulmonary Medical History: Denies: Hx Asthma Neurological Medical History: Denies: Hx Cerebrovascular Accident, Hx Seizures Renal/ Medical History: Denies: Hx Peritoneal Dialysis GI Medical History: Denies: Hx Hepatitis, Hx Hiatal Hernia, Hx Ulcer Musculoskeltal Medical History: Reports Hx Arthritis Psychiatric Medical History: Reports: Hx Anxiety, Hx Depression Infectious Medical History: Denies: Hx Hepatitis Past Surgical History: Reports: Hx Herniorrhaphy, Hx Hysterectomy, Hx Orthopedic Surgery - Intramedullary nailing of the left hip Fracture. Denies: Hx Mastectomy, Hx Open Heart Surgery, Hx Pacemaker Physical Exam - Vital signs Vitals: Temp Pulse Resp BP Pulse Ox 97.5 F 96 17 137/93 H 91 L 07/23/18 16:31 07/23/18 16:31 07/23/18 16:31 07/23/18 16:31 07/23/18 16:31 Course - Vital Signs Vital signs: Temp Pulse Resp BP Pulse Ox 97.5 F 96 17 137/93 H 91 L 07/23/18 16:31 07/23/18 16:31 07/23/18 16:31 07/23/18 16:31 07/23/18 16:31 Doctor's Discharge - Discharge Referrals: EZIO SHEPHERD MD [Primary Care Provider] - Follow up as needed
--- NOTE | 2018-07-23 18:27 | RADIOLOGY REPORT (SQ) ---
EXAM DESCRIPTION: CT HEAD WITHOUT COMPLETED DATE/TIME: 07/23/2018 6:17 pm REASON FOR STUDY: fall COMPARISON: 10/21/2017 TECHNIQUE: Axial images acquired through the brain without intravenous contrast. Images reviewed wi th bone, brain and subdural windows. Additional sagittal and coronal reconstructions were generated. Images stored on PACS. All CT scanners at this facility use dose modulation, iterative reconstruction, and/or weight based d osing when appropriate to reduce radiation dose to as low as reasonably achievable (ALARA). [facility]: Dose Right [facility]: CareDose [facility]: Dose Right [facility]: Teradose 4D [facility]: Smart [employer] RADIATION DOSE: CT Rad equipment meets quality standard of care and radiation dose reduction techniq ues were employed. CTDIvol: 53.2 mGy. DLP: 1017 mGy-cm. mGy. LIMITATIONS: None. FINDINGS: VENTRICLES: Normal size and contour. CEREBRUM: No masses. No hemorrhage. No midline shift. No evidence for acute infarction. Extensive areas of low density in the white matter most likely chronic small vessel ischemic changes. CEREBELLUM: No masses. No hemorrhage. No alteration of density. No evidence for acute infarction. EXTRAAXIAL SPACES: No fluid collections. No masses. ORBITS AND GLOBE: No intra- or extraconal masses. Normal contour of globe without masses. CALVARIUM: No fracture. PARANASAL SINUSES: No fluid or mucosal thickening. SOFT TISSUES: Soft tissue hematoma over the right scalp vertex. OTHER: No other significant finding. IMPRESSION: 1. No acute intracranial pathology. Advanced small vessel [facility] with patient [facility]. 2. Soft tissue hematoma over the right scalp vertex. EVIDENCE OF ACUTE STROKE: NO. COMMENT: Quality ID # [id number]: Final reports with documentation of one or more dose reduction techniques (e.g., Automated exposure control, adjustment of the mA and/or kV according to patient size, use of iterative reconstruction technique) TECHNICAL DOCUMENTATION: JOB ID: [id number] [employer]- All Rights Reserved Reading location - IP/workstation name: [email or web address]
--- NOTE | 2018-07-23 18:29 | RADIOLOGY REPORT (SQ) ---
EXAM DESCRIPTION: CT CERVICAL SPINE WITHOUT COMPLETED DATE/TIME: 07/23/2018 6:17 pm REASON FOR STUDY: fall COMPARISON: 05/31/2016 TECHNIQUE: Axial images acquired through the cervical spine without intravenous contrast. Images re viewed with lung, soft tissue and bone windows. Reconstructed coronal and sagittal MPR images review ed. Images stored on PACS. All CT scanners at this facility use dose modulation, iterative reconstruction, and/or weight based d osing when appropriate to reduce radiation dose to as low as reasonably achievable (ALARA). [facility]: Dose Right [facility]: CareDose [facility]: Dose Right [facility]: Teradose 4D [facility]: [employer] RADIATION DOSE: CT Rad equipment meets quality standard of care and radiation dose reduction techniq ues were employed. CTDIvol: 7.4 mGy. DLP: 137 mGy-cm. mGy. LIMITATIONS: None. FINDINGS: ALIGNMENT: Degenerative straightening of the normal cervical lordosis with degenerative li sthesis of C4 on C5. MINERALIZATION: Normal. VERTEBRAL BODIES: No fractures or dislocation. DISCS: Severe multilevel disc degenerative disease. FACETS, LATERAL MASSES, POSTERIOR ELEMENTS: Severe multilevel facet degenerative disease. No fractur es. No dislocation. No acute findings. HARDWARE: None in the spine. VISUALIZED RIBS: No fractures. LUNG APICES AND SOFT TISSUES: No significant or acute findings. OTHER: No other significant finding. IMPRESSION: No fracture or static subluxation of the cervical spine. Severe multilevel disc and fac et degenerative disease. TECHNICAL DOCUMENTATION: JOB ID: [id number] Quality ID # [id number]: Final reports with documentation of one or more dose reduction techniques (e.g., Au tomated exposure control, adjustment of the mA and/or kV according to patient size, use of iterative reconstruction technique) 2010 [employer]- All Rights Reserved Reading location - IP/workstation name: [email or web address]
[2018-07-23] MEDS ORDERED: LIDOCAINE 4%/TETRACAINE 0.5%/EPI 0.18% 5 ML TOPICAL SOLN TOP ONE (19:34)
--- NOTE | 2018-07-23 19:54 | ER Document Report ---
ED General - General Chief Complaint: Laceration Stated Complaint: FALL/HEAD PAIN Time Seen by Provider: 07/23/18 17:33 Primary Care Provider: EZIO SHEPHERD MD [Primary Care Provider] - Follow up in 1 week Cannot obtain history due to: Dementia Notes: Patient is an 87-year-old female with a past from her assisted care facility after several mechanical falls. The patient apparently fell and struck her head today and was noted to have laceration to her right occipital scalp. Patient is unable to provide meaningful history. Son with whom the patient is here does not know any additional history beyond what is a provided above as he states that he was contacted by the facility and told that his mother had fallen and that she needed to go to the emergency department. Patient denies complaints of pain anywhere except her head. Son states that she is currently acting at her baseline. TRAVEL OUTSIDE OF THE [place] IN LAST 30 DAYS: No - Related Data Allergies/Adverse Reactions: No Known Allergies Allergy (Verified 07/23/18 16:17) Past Medical History - General Information source: Relative Cannot obtain history due to: Dementia - Social History Smoking Status: Never Smoker Frequency of alcohol use: None Drug Abuse: None Lives with: Prison Family History: Hypertension Patient has suicidal ideation: No Patient has homicidal ideation: No - Past Medical History Cardiac Medical History: Reports: Hx Hypercholesterolemia Denies: Hx Heart Attack, Hx Hypertension Pulmonary Medical History: Denies: Hx Asthma Neurological Medical History: Denies: Hx Cerebrovascular Accident, Hx Seizures Renal/ Medical History: Denies: Hx Peritoneal Dialysis GI Medical History: Denies: Hx Hepatitis, Hx Hiatal Hernia, Hx Ulcer Musculoskeletal Medical History: Reports Hx Arthritis Psychiatric Medical History: Reports: Hx Anxiety, Hx Depression Infectious Medical History: Denies: Hx Hepatitis Past Surgical History: Reports: Hx Herniorrhaphy, Hx Hysterectomy, Hx Orthopedic Surgery - Intramedullary nailing of the left hip Fracture. Denies: Hx Mastectomy, Hx Open Heart Surgery, Hx Pacemaker - Immunizations Hx Pneumococcal Vaccination: 02/15/11 Review of Systems - Review of Systems Notes: Constitutional: Negative for fever. Eyes: Negative for visual changes. ENT: Negative for facial injury Cardiovascular: Negative for chest injury. Respiratory: Negative for shortness of breath. Gastrointestinal: Negative for abdominal injury. Genitourinary: Negative for genital injury Musculoskeletal: Negative for back injury. Skin: Positive for laceration/abrasions. Neurological: Positive for head injury. Physical Exam - Vital signs Vitals: Temp Pulse Resp BP Pulse Ox 97.5 F 96 17 137/93 H 91 L 07/23/18 16:31 07/23/18 16:31 07/23/18 16:31 07/23/18 16:31 07/23/18 16:31 Interpretation: Hypoxic - Inaccurate reading Notes: PHYSICAL EXAMINATION: GENERAL: Elderly female, somewhat emaciated but in no acute distress HEAD: There is a soft tissue hematoma to the right occipital scalp. No palpable skull fractures. EYES: Pupils equal round and reactive to light, extraocular movements intact, sclera anicteric, conjunctiva are normal. ENT: nares patent, no oral pharyngeal trauma. No hemotympanum, no Greene's sign, no raccoon eyes. NECK: No midline cervical spine tenderness. Patient able to move their head to 45 bilaterally without any discomfort. LUNGS: Breath sounds clear to auscultation bilaterally and equal. No wheezes rales or rhonchi. HEART: Regular rate and rhythm without murmurs. CHEST WALL: No ecchymosis over the chest wall. ABDOMEN: Soft, nontender, normoactive bowel sounds. No guarding, no rebound. No abdominal bruising EXTREMITIES: no pitting or edema. No long bone deformities. BACK: No midline spinal tenderness, step-offs, or deformities. NEUROLOGICAL: Has difficulty comprehending strength testing commands. Does move all extremities spontaneously, equally on command PSYCH: Alert, oriented to person only SKIN: Warm, Dry, normal turgor, stellate type laceration to the right occipital scalp measuring 4 cm in total Course - Re-evaluation Re-evalutation: 07/23/18 19:53 Presentation of a well appearing elderly patient in no acute distress, vitals within normal limits after a mechanical fall. Patient denies a syncopal episode as the cause for today's fall. No focal neurologic deficits on exam, no evidence of basilar skull fracture on exam without evidence of hemotympanum, raccoon eyes, or periauricular hematoma. No papilledema. Patient is not on anticoagulation. GCS is 15. No loss of consciousness. No episodes of vomiting. However, based on patient's age a CT of the head has been obtained which is negative for any acute intracranial bleed. Likewise, patient was unable to be clinically cleared due to age by [place] cervical spine criteria. A CT of the cervical spine was also obtained and likewise is negative for any acute fracture. No indication for further imaging of the cervical spine. Patient has no focal deformities or limited range of motion in any joint space. Chest and abdominal exam are benign without any focal tenderness, shortness of breath, or bruising over the chest or abdominal wall. Patient has no flank tenderness. There is no obvious findings on trauma exam today and therefore no further imaging or evaluation will be obtained at this time. Patient did have a scalp laceration which was repaired primarily with rashel. Please review laceration documentation. At this time will discharge with return precautions and follow- up recommendations. Verbal discharge instructions given a the bedside and opportunity for questions given. Medication warnings reviewed. Patient is in agreement with this plan and has verbalized understanding of return precautions and the need for primary care follow-up in the next 24-72 hours. - Vital Signs Vital signs: Temp Pulse Resp BP Pulse Ox 98.3 F 85 20 125/83 98 07/23/18 20:42 07/23/18 20:42 07/23/18 20:42 07/23/18 20:42 07/23/18 20:42 - Diagnostic Test Radiology reviewed: Image reviewed, Reports reviewed Radiology results interpreted by me: 07/23/18 19:53 CT head: No acute intercranial bleed or mass Procedures - Laceration/Wound Repair Right posterior scalp Wound length (cm): 4 Wound's Depth, Shape: Stellate Laceration pre-procedure: Sterile PPE donned Anesthetic type: Other - Topical let Wound explored: Clean Irrigated w/ Saline (mLs): 500 Wound Debrided: Minimal Wound Repaired With: [place] Number of Sutures: 4 Layer Closure?: No Post-procedure wound care: Sterile dressing applied Post-procedure NV exam normal: Yes Complications: No Discharge - Discharge Clinical Impression: Head trauma Qualifiers: Encounter type: initial encounter Qualified Code(s): S09.90XA - Unspecified injury of head, initial encounter Scalp laceration Qualifiers: Encounter type: initial encounter Qualified Code(s): S01.01XA - Laceration without foreign body of scalp, initial encounter Fall Qualifiers: Encounter type: initial encounter Qualified Code(s): W19.XXXA - Unspecified fall, initial encounter Condition: Good Disposition: HOME, SELF-CARE Additional Instructions: You have been seen in the Emergency Department (ED) today following a fall. Your workup today did not reveal any injuries that require you to stay in the hospital. You can expect, though, to be stiff and sore for the next several days. You can take Tylenol 1000 mg every 6 hours as needed for pain. You can apply a hot pack or electric heating pad to the sore areas. You can also use topical "Aspercreme with lidocaine" to sore areas as needed. Please follow up with your primary care doctor as soon as possible regarding today's ED visit and your recent fall. Call your doctor or return to the ED if you develop a sudden or severe headache, confusion, slurred speech, facial droop, weakness or numbness in any arm or leg, extreme fatigue, vomiting more than two times, severe abdominal pain, or other symptoms that concern you. Please return to your primary doctor, the ED, or an urgent care in 7 days for staple removal. Return immediately if you develop spreading redness around the wound, pus from the wound, worsening pain, or a fever of >100.4. Keep the area clean and dry. Wash gently with soap and water twice daily and cover with antibiotic ointment. Referrals: EZIO SHEPHERD MD [Primary Care Provider] - Follow up in 1 week
[2018-07-23 20:43] VITALS: BP 125/83
== END 2018-07-23 20:43 | disposition home or self-care (01) ==
LOC: ER 16:16
DX: S01.01XA Laceration without foreign body of scalp, initial encounter (principal); W19.XXXA Unspecified fall, initial encounter; E78.00 Pure hypercholesterolemia, unspecified; Z90.710 Acquired absence of both cervix and uterus
CPT/HCPCS: 99283; 70450; 72125; 12002; J3490

== ENCOUNTER 2018-10-23 07:12 | Emergency (ER) | payer MEDICARE ==
--- NOTE | 2018-10-23 08:36 | RADIOLOGY REPORT (SQ) ---
EXAM DESCRIPTION: CT HEAD WITHOUT COMPLETED DATE/TIME: 10/23/2018 8:13 am REASON FOR STUDY: bed 5 s/p fall per dr edwards COMPARISON: 07/23/2018 TECHNIQUE: Axial images acquired through the brain without intravenous contrast. Images reviewed wi th bone, brain and subdural windows. Additional sagittal and coronal reconstructions were generated. Images stored on PACS. All CT scanners at this facility use dose modulation, iterative reconstruction, and/or weight based d osing when appropriate to reduce radiation dose to as low as reasonably achievable (ALARA). [facility]: Dose Right [facility]: CareDose [facility]: Dose Right [facility]: Teradose 4D [facility]: [employer] RADIATION DOSE: CT Rad equipment meets quality standard of care and radiation dose reduction techniq ues were employed. CTDIvol: 53.2 mGy. DLP: 911 mGy-cm.mGy. LIMITATIONS: Patient motion. FINDINGS: VENTRICLES: Prominent. CEREBRUM: No masses. No hemorrhage. No midline shift. Areas of low density in the white matter mos t likely due to chronic micro-vascular ischemic change. No evidence for acute infarction. CEREBELLUM: No masses. No hemorrhage. No alteration of density. No evidence for acute infarction. EXTRAAXIAL SPACES: Age-related involutional change. No fluid collections. No masses. ORBITS AND GLOBE: No intra- or extraconal masses. Normal contour of globe without masses. CALVARIUM: No fracture. PARANASAL SINUSES: No fluid or mucosal thickening. SOFT TISSUES: Right frontal scalp hematoma. OTHER: No other significant finding. IMPRESSION: CHRONIC CHANGES OF ATROPHY AND MICROVASCULAR ISCHEMIA. NO ACUTE PROCESS. EVIDENCE OF ACUTE STROKE: NO. TECHNICAL DOCUMENTATION: JOB ID: [id number] Quality ID # [id number]: Final reports with documentation of one or more dose reduction techniques (e.g., Au tomated exposure control, adjustment of the mA and/or kV according to patient size, use of iterative reconstruction technique) 2010 [employer]- All Rights Reserved Reading location - IP/workstation name: [email or web address]
--- NOTE | 2018-10-23 08:37 | RADIOLOGY REPORT (SQ) ---
EXAM DESCRIPTION: CT CERVICAL SPINE WITHOUT COMPLETED DATE/TIME: 10/23/2018 8:13 am REASON FOR STUDY: bed 5 s/p fall per dr edwards COMPARISON: 07/23/2018 TECHNIQUE: Axial images acquired through the cervical spine without intravenous contrast. Images re viewed with lung, soft tissue and bone windows. Reconstructed coronal and sagittal MPR images review ed. Images stored on PACS. All CT scanners at this facility use dose modulation, iterative reconstruction, and/or weight based d osing when appropriate to reduce radiation dose to as low as reasonably achievable (ALARA). [facility]: Dose Right [facility]: CareDose [facility]: Dose Right [facility]: Teradose 4D [facility]: [employer] RADIATION DOSE: CT Rad equipment meets quality standard of care and radiation dose reduction techniq ues were employed. CTDIvol: 8.2 mGy. DLP: 176 mGy-cm. mGy. LIMITATIONS: None. FINDINGS: ALIGNMENT: Grade 1 spondylolisthesis C4-5. MINERALIZATION: Osteopenia. VERTEBRAL BODIES: No fractures or dislocation. DISCS: Multilevel disc space narrowing with osteophytes. FACETS, LATERAL MASSES, POSTERIOR ELEMENTS: Facet arthropathy. No fractures. No dislocation. No ac teller findings. HARDWARE: None in the spine. VISUALIZED RIBS: No fractures. LUNG APICES AND SOFT TISSUES: No significant or acute findings. OTHER: No other significant finding. IMPRESSION: CHRONIC DEGENERATIVE CHANGES. NO ACUTE FINDINGS. TECHNICAL DOCUMENTATION: JOB ID: [id number] Quality ID # [id number]: Final reports with documentation of one or more dose reduction techniques (e.g., Au tomated exposure control, adjustment of the mA and/or kV according to patient size, use of iterative reconstruction technique) 2010 [employer]- All Rights Reserved Reading location - IP/workstation name: [email or web address]
--- NOTE | 2018-10-23 09:30 | ER Document Report ---
ED General - General Chief Complaint: Fall Stated Complaint: FALL Time Seen by Provider: 10/23/18 09:05 Primary Care Provider: EZIO SHEPHERD MD [Primary Care Provider] - Follow up as needed TRAVEL OUTSIDE OF THE [place] IN LAST 30 DAYS: No - HPI Notes: Patient is an 88-year-old female with a history of dementia who presents to the emergency department for evaluation. Evidently she was found down on the floor. According to family member this is not on common. She is fallen 3 times and been evaluated for such. Is unsure as to what how long she had been down on the floor in the [facility]. She did hit the right side of her head, as well as sustain a skin tear to her right elbow. The patient herself denies any pain of any sort. Family is unsure as to when her last tetanus shot was. - Related Data Allergies/Adverse Reactions: No Known Allergies Allergy (Verified 10/23/18 10:16) Past Medical History - Social History Smoking Status: Unknown if Ever Smoked Family History: Hypertension Patient has suicidal ideation: No Patient has homicidal ideation: No - Past Medical History Cardiac Medical History: Reports: Hx Hypercholesterolemia Denies: Hx Heart Attack, Hx Hypertension Pulmonary Medical History: Denies: Hx Asthma Neurological Medical History: Denies: Hx Cerebrovascular Accident, Hx Seizures Renal/ Medical History: Denies: Hx Peritoneal Dialysis GI Medical History: Denies: Hx Hepatitis, Hx Hiatal Hernia, Hx Ulcer Musculoskeletal Medical History: Reports Hx Arthritis Psychiatric Medical History: Reports: Hx Anxiety, Hx Depression Infectious Medical History: Denies: Hx Hepatitis Past Surgical History: Reports: Hx Herniorrhaphy, Hx Hysterectomy, Hx Orthopedic Surgery - Intramedullary nailing of the left hip Fracture. Denies: Hx Mastectomy, Hx Open Heart Surgery, Hx Pacemaker - Immunizations Hx Pneumococcal Vaccination: 02/15/11 Physical Exam - Vital signs Vitals: Resp 12 10/23/18 07:25 Course - Re-evaluation Re-evalutation: 10/23/18 10:30 Patient presents emergency department for evaluation. She has a history of dementia so she cannot offer me any significant history. She did sustain a head injury, but according to family is mentally at baseline. She has no focal neurological deficits beyond her orientation status. Her skin tear was dressed, cleaned. Her tetanus was updated. We will discharge the patient back to the [facility]. She is to follow-up with primary care this week, return to the ED with worsening. - Vital Signs Vital signs: Temp Pulse Resp BP Pulse Ox 98.0 F 88 14 139/84 H 98 10/23/18 07:39 10/23/18 07:39 10/23/18 08:10 10/23/18 07:39 10/23/18 08:10 - Diagnostic Test Radiology reviewed: Reports reviewed Radiology results interpreted by me: 10/23/18 10:[address] 10/23/18 00:00 IMPRESSION: CHRONIC DEGENERATIVE CHANGES. NO ACUTE FINDINGS. Head CT 10/23/18 00:00 IMPRESSION: CHRONIC CHANGES OF ATROPHY AND MICROVASCULAR ISCHEMIA. NO ACUTE PROCESS. EVIDENCE OF ACUTE STROKE: NO. Discharge - Discharge Clinical Impression: Fall at [facility] Qualifiers: Encounter type: initial encounter Qualified Code(s): W19.XXXA - Unspecified fall, initial encounter; Y92.129 - Unspecified place in [facility] as the place of occurrence of the external cause Hematoma of frontal scalp Qualifiers: Encounter type: initial encounter Qualified Code(s): S00.03XA - Contusion of scalp, initial encounter Skin tear of right elbow without complication Qualifiers: Encounter type: initial encounter Qualified Code(s): S51.011A - Laceration without foreign body of right elbow, initial encounter Condition: Stable Disposition: HOME-SNF (ED ONLY) Instructions: Head Injury Precautions ([facility]), Scalp Hematoma ([facility]), Skin Tear ([facility]) Additional Instructions: Follow-up with primary care this week. Cleanse wound and change bandage daily. If she develops increased confusion, vomiting, redness around the skin tear, or any other new or concerning symptoms, return immediately to the emergency department for evaluation. Referrals: EZIO SHEPHERD MD [Primary Care Provider] - Follow up as needed
[2018-10-23] MEDS ORDERED: DIPH/PERTUSS(ACELL)/TETANUS VAC/PF 0.5 ML SYR (>=10YO) IM ONE (09:31)
[2018-10-23 10:52] VITALS: BP 151/89
== END 2018-10-23 10:51 ==
LOC: ER 07:12
DX: S51.011A Laceration without foreign body of right elbow, initial encounter (principal); S00.03XA Contusion of scalp, initial encounter; R51 Headache; W19.XXXA Unspecified fall, initial encounter; F03.90 Unspecified dementia, unspecified severity, without behavioral disturbance, psychotic disturbance, mood disturbance, and anxiety
CPT/HCPCS: 70450; 72125; 90471; 90715; 99283

== ENCOUNTER 2019-03-22 16:49 | Emergency (ER) | payer MEDICARE ==
[2019-03-22 17:55] LABS: APPEARANCE,URINE CLOUDY; BILIRUBIN,URINE NEGATIVE (NEGATIVE); CALCIUM OXALATE CRYSTALS,URINE RARE /HPF; COLOR,URINE AMBER; GLUCOSE, URINE NEGATIVE (NEGATIVE); KETONES,URINE TRACE mg/dL (NEGATIVE); LEUKOCYTE ESTERASE,URINE LARGE (NEGATIVE); NITRITE,URINE NEGATIVE (NEGATIVE); PROTEIN,URINE 30 mg/dL (NEGATIVE); URINE SPECIFIC GRAVITY 1.016
[2019-03-22 17:59] LABS: ABSOLUTE MONOCYTES (AUTO) 0.3 10^3/uL (0.1-1.4); ABSOLUTE NEUT (AUTO) 9.1 10^3/uL (1.7-8.2); BASOPHILS % (AUTO) 0.4 % (0-2); EOSINOPHILS % (AUTO) 0.3 % (0-6); HEMATOCRIT 40.2 % (36.0-47.0); HEMOGLOBIN 13.6 g/dL (12.0-15.5); LYMPHOCYTES % (AUTO) 9.2 % (13-45); MEAN CORPUSCULAR HEMOGLOBIN 30.8 pg (27.0-33.4); MEAN CORPUSCULAR HGB CONC 33.9 g/dL (32.0-36.0); MEAN CORPUSCULAR VOLUME 91 fl (80-97); MONOCYTES % (AUTO) 3.3 % (3-13); PLATELET COUNT 278 10^3/uL (150-450); RED BLOOD COUNT 4.42 10^6/uL (3.72-5.28); RED CELL DISTRIBUTION WIDTH 14.3 % (11.5-14.0); SEGMENTED NEUTROPHILS % (AUTO) 86.8 % (42-78); TOTAL CELLS COUNTED % (AUTO) 100 %; WHITE BLOOD COUNT 10.5 10^3/uL (4.0-10.5)
--- NOTE | 2019-03-22 18:13 | ER Document Report ---
ED General - General Chief Complaint: Nausea/Vomiting Stated Complaint: AMS Time Seen by Provider: 03/22/19 18:11 Primary Care Provider: EZIO SHEPHERD MD [Primary Care Provider] - Follow up as needed Mode of Arrival: Medic Information source: Relative, Emergency Med Personnel Cannot obtain history due to: Dementia TRAVEL OUTSIDE OF THE [place] IN LAST 30 DAYS: No - HPI Onset: This afternoon Onset/Duration: Gradual Quality of pain: No pain Severity: Moderate Associated symptoms: Diarrhea, Nausea, Vomiting Exacerbated by: Denies Relieved by: Denies Similar symptoms previously: No Recently seen / treated by doctor: No Notes: 88 year old female with a history of Dementia, HLD, Arthritis, Depression, Anxiety here brought to the ER for a period of altered mental status, nausea, vomiting, and diarrhea. The patient lives in assisted living and the patient apparently threw up her lunch and then had loose stools. A Family member was visiting and noticed the patient to be only somewhat responsive after the event. EMS was therefore called and brought the patient to this ER. The patient is now back to her mental baseline according to family here in the ER. - Related Data Allergies/Adverse Reactions: No Known Allergies Allergy (Verified 10/23/18 10:16) Past Medical History - General Information source: Relative Cannot obtain history due to: Dementia - Social History Smoking Status: Never Smoker Frequency of alcohol use: None Drug Abuse: None Lives with: Prison Family History: Hypertension Patient has suicidal ideation: No Patient has homicidal ideation: No - Past Medical History Cardiac Medical History: Reports: Hx Hypercholesterolemia Denies: Hx Heart Attack, Hx Hypertension Pulmonary Medical History: Denies: Hx Asthma Neurological Medical History: Denies: Hx Cerebrovascular Accident, Hx Seizures Renal/ Medical History: Denies: Hx Peritoneal Dialysis GI Medical History: Denies: Hx Hepatitis, Hx Hiatal Hernia, Hx Ulcer Musculoskeletal Medical History: Reports Hx Arthritis Psychiatric Medical History: Reports: Hx Anxiety, Hx Depression Infectious Medical History: Denies: Hx Hepatitis Past Surgical History: Reports: Hx Herniorrhaphy, Hx Hysterectomy, Hx Orthopedic Surgery - Intramedullary nailing of the left hip Fracture. Denies: Hx Mastectomy, Hx Open Heart Surgery, Hx Pacemaker - Immunizations Hx Pneumococcal Vaccination: 02/15/11 Review of Systems - Review of Systems Constitutional: Weakness EENT: No symptoms reported Cardiovascular: No symptoms reported Respiratory: No symptoms reported Gastrointestinal: Diarrhea, Nausea, Vomiting Genitourinary: No symptoms reported Female Genitourinary: No symptoms reported Musculoskeletal: No symptoms reported Skin: Other - ulcer with redness around it on left lower leg Hematologic/Lymphatic: No symptoms reported Neurological/Psychological: Dementia, Other - altered mental status -: Yes All other systems reviewed and negative Physical Exam - Vital signs Vitals: Temp Pulse Resp BP Pulse Ox 97.9 F 94 19 128/92 H 95 03/22/19 20:01 03/22/19 20:01 03/22/19 20:01 03/22/19 20:01 03/22/19 20:01 - Notes Notes: GENERAL: Elderly, Pleasently Confuse, Well-appearing, well-nourished and in no acute distress. HEAD: Atraumatic, normocephalic. EYES: Pupils equal round and reactive to light, extraocular movements intact, sclera anicteric, conjunctiva are normal. ENT: TMs normal, nares patent, oropharynx clear without exudates. Moist mucous membranes. NECK: Normal range of motion, supple without lymphadenopathy or JVD. LUNGS: Breath sounds clear to auscultation bilaterally and equal. No wheezes rales or rhonchi. HEART: Regular rate and rhythm without murmurs, rubs or gallops. ABDOMEN: Soft, nontender, normoactive bowel sounds. No guarding, no rebound. No masses appreciated. EXTREMITIES: Normal range of motion, no pitting or edema. No clubbing or cyanosis. NEUROLOGICAL: No focal deficits, patient is pleasantly confused due to her underlying dementia. Family says she is at her baseline now. PSYCH: Normal mood, normal affect. SKIN: Warm, Dry, left lower leg on medial aspect has scabbed over skin ulcer w hich has some surrounding erythema and warmth (about 6cm in diameter). Course - Re-evaluation Re-evalutation: 03/22/19 20:34 The patient had an episode of nausea/vomiting/altered mental status today. Work up in the ER shows the patient has a UTI and physical exam shows she may have a left lower leg cellulitis. Will culture urine and treat with Keflex to hopefully cover her urine and skin pathogens with one antibiotic. Family told to have patient's PCP follow up the urine culture results. Patient is back to her baselines according to family. No need for neuro imaging based on her event today, work up, physical, exam, and fact she is back t her baseline. - Vital Signs Vital signs: Temp Pulse Resp BP Pulse Ox 97.9 F 94 19 128/92 H 95 03/22/19 20:01 03/22/19 20:01 03/22/19 20:01 03/22/19 20:01 03/22/19 20:01 - Laboratory Result Diagrams: 03/22/19 17:26 03/22/19 17:26 Laboratory results interpreted by me: 03/22/19 03/22/19 17:20 17:26 RDW 14.3 H Lymph % (Auto) 9.2 L Absolute Neuts (auto) 9.1 H Seg Neutrophils % 86.8 H Urine Protein 30 H Urine Ketones TRACE H Urine Urobilinogen 2.0 H Ur Leukocyte Esterase LARGE H - EKG Interpretation by Me EKG shows normal: Sinus rhythm, [place], Intervals, QRS Complexes Rate: Normal Rhythm: NSR When compared to previous EKG there are: No significant change Additional EKG results interpreted by me: 03/22/19 18:40 PVC Discharge - Discharge Clinical Impression: UTI (urinary tract infection) Qualifiers: Urinary tract infection type: site unspecified Hematuria presence: without hematuria Qualified Code(s): N39.0 - Urinary tract infection, site not specified Cellulitis Qualifiers: Site of cellulitis: extremity Site of cellulitis of extremity: lower extremity Laterality: left Qualified Code(s): L03.116 - Cellulitis of left lower limb Condition: Stable Disposition: HOME-SNF (ED ONLY) Additional Instructions: Take Keflex (antibiotic) as prescribed to treat your UTI and skin infection. Follow up with your primary care doctor to ensure you are improving and to enure your skin wound is healing. Have your primary care doctor follow up the Urine Culture which was obtained today (it will result in 48 hours). Return to an ER for fevers, chills, sweats, or if worse in anyway. Prescriptions: Cephalexin Monohydrate [Keflex 500 mg Capsule] 500 mg PO Q6H 7 Days #28 capsule Referrals: EZIO SHEPHERD MD [Primary Care Provider] - Follow up as needed
[2019-03-22 18:25] LABS: ALBUMIN 3.8 g/dL (3.5-5.0); ALKALINE PHOSPHATASE 91 U/L (38-126); ANION GAP 7 (5-19); ASPARTATE AMINO TRANSFERASE 23 U/L (14-36); BILIRUBIN,TOTAL 0.7 mg/dL (0.2-1.3); BLOOD UREA NITROGEN 18 mg/dL (7-20); CALCIUM 9.4 mg/dL (8.4-10.2); CARBON DIOXIDE 29 mmol/L (22-30); CHLORIDE 105 mmol/L (98-107); GLUCOSE 108 mg/dL (75-110); POTASSIUM 4.8 mmol/L (3.6-5.0); TOTAL PROTEIN 7.2 g/dL (6.3-8.2)
[2019-03-22] MEDS ORDERED: NORMAL SALINE 500 ML IV ONE (18:25)
[2019-03-22] MEDS ORDERED: ONDANSETRON HCL INJ/PF 4 MG/2 ML SDV IV ONE (18:26)
[2019-03-22] MEDS ORDERED: CEFTRIAXONE INJ 1000 MG VIAL IV ONE (19:25)
[2019-03-22 20:02] LABS: CREATINE KINASE MB 0.52 ng/mL (<4.55)
[2019-03-22 20:03] LABS: TROPONIN I < 0.012 ng/mL
[2019-03-22 21:16] VITALS: BP 127/88
--- NOTE | 2019-03-23 19:37 | EKG REPORT ---
SEVERITY:- ABNORMAL ECG - SINUS TACHYCARDIA MULTIPLE VENTRICULAR PREMATURE COMPLEXES : Confirmed by: Moriah Helm MD 23-Mar-2019 19:36:18
== END 2019-03-22 21:16 ==
LOC: ER 16:49
DX: N39.0 Urinary tract infection, site not specified (principal); L03.116 Cellulitis of left lower limb; R41.82 Altered mental status, unspecified; R11.2 Nausea with vomiting, unspecified; R19.7 Diarrhea, unspecified; F03.90 Unspecified dementia, unspecified severity, without behavioral disturbance, psychotic disturbance, mood disturbance, and anxiety; F32.9 Major depressive disorder, single episode, unspecified; F41.9 Anxiety disorder, unspecified
CPT/HCPCS: 93005; 99284; 96361; 51701; 96375; 96365; 36415; 87086; 82553; 82550; 85025; 87088; 80053; 81001; 84484; 87186; 93010; J0696; J2405; J7040